=== PATIENT | female | born 1950 | race Caucasian/White ===

== ENCOUNTER 2019-09-19 12:04 | Inpatient (IN) | payer MEDICARE, MEDICAID, SELFPAY ==
[2019-09-19] VITALS (25 sets, daily range): BP systolic 128–169; BP diastolic 64–86; PULSE 78–98; RESP 13–28; TEMP 36.7–36.8; O2SAT 90–99; BMI 22.8
--- NOTE | 2019-09-19 12:13 | ED_ITS ---
Documented by User: RAGHU Cheatham 09/19/19 17:08 HPI - Back Pain/Injury General: Chief Complaint: Back Pain/Injury Stated Complaint: BACK PAIN Time Seen by Provider: 09/19/19 12:13 History of Present Illness: HPI Narrative: Patient presents today with complaints of low back pain on the right side to center. 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 Patient reports pains been bad since last week. Review of record noted that patient seen Dr. Miranda last week and he was given a increase in oxycodone 10 mg every 6 hours for 14 days number 20 tablets due to the exacerbation of her pain. Patient denies any injury or fall. Patient uses a wheelchair routinely. Patient does stand at times with the assistance of a walker and a elevation chair. Patient appears in moderate to severe pain. Patient appears well. Patient also has a history of cervical cancer with radiation treatment. 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 Osteoporosis, disuse Peripheral neuropathy Stenosis, spinal, lumbar Wheelchair bound Surgical History History of arthroplasty of left ankle Status post total left knee replacement Family History Other Diabetes Heart disease Social History (Updated 09/19/19 @ 19:56 by Mary Gonzalez MD) Smoking and tobacco status: never smoked Alcohol intake: never Lives independently: Yes Marital status: / Number of children: 5 Number of grandchildren: 7 Current occupational status: retired History of recent travel: No Physical Exam Const: COMMON NORMALS: no acute distress and patient oriented x3 GENERAL APPEARANCE: cooperative HENMT: COMMON NORMALS: normocephalic and Normal external nose present HEAD & SCALP: normal to inspection and normocephalic NOSE: Normal external nose present MOUTH: Normal oral and palatal mucosa present Eye: GENERAL EYE: appearance normal, both eyes and all related structures Neck/C-Spine: COMMON NORMALS: full ROM Lymph: LYMPHATIC: no lymphadenopathy noted Chest: COMMONS NORMALS: normal inspection of the chest Resp: COMMON NORMALS: normal respiratory effort EFFORT & INSPECTION: Yes able to speak in complete sentences Cardio: COMMON NORMALS: regular rate and regular rhythm RATE: regular rate RHYTHM: regular rhythm GI: COMMON NORMALS: non-tender : COMMON NORMALS: Yes no CVA tenderness BLADDER/KIDNEY EXAM: Yes no CVA tenderness Back/Pelvis: COMMON NORMALS: no CVA tenderness THORACIC SPINE/UPPER BACK: Yes normal to inspection LUMBAR SPINE/LOWER BACK: Yes lumbar spinal tenderness and Yes paraspinal muscle tenderness Lumbar paraspinal muscle tenderness: right Extremity: COMMON NORMALS: normal to inspection Neuro: COMMON NORMALS: patient oriented x3 and moves all extremities Psych: COMMON NORMALS: mental status grossly normal and cooperative Skin: COMMON NORMALS: no rashes or lesions noted GENERAL SKIN EXAM: no rashes or lesions noted Course ED course: 1306, patient reports minimal relief of pain. Patient continues to have significant difficulty with dealing with the discomfort of the back pain. Awaiting CT scan. Ordered 1 mg of hydromorphone for further pain relief. 1414, reviewed abnormalities of patient's labs with Dr. Tsai. He agreed with concerns for leukemia and recommended an LDH to be added to her lab. He plans at this time to seek admission for patient for further evaluation and treatment for abnormality, along with intractable pain. Patient reports some mild pain relief after dosing with 1 mg of hydromorphone. Patient continues to appear in moderate pain. wjw 1500, discussed with Dr. Tang patient, he agreed to see patient for further evaluation and treatment. He recommended we order CT scan of the abdomen and pelvis with contrast. He also requested manual differential of the CBC. wjw 1707, reviewed CT with Dr. Tsai, agreed to assume care of patient on my departure, plan at this time is to admit for pain control and further evaluation of acute leukemia. wjw Vital Signs: Vital signs: Vital Signs Temperature 97.8 F 09/24/19 12:06 Pulse Rate 82 09/24/19 12:06 Respiratory Rate 24 H 09/24/19 12:54 Blood Pressure 139/69 09/24/19 12:06 Pulse Oximetry 94 09/24/19 12:00 MDM - Back Pain/Injury Lab Data: Labs: Lab Results 09/19/19 09/19/19 09/19/19 Range/Units 13:04 13:04 13:04 WBC 52.6 H* (4.0-10.0) 10^3/ uL RBC 5.13 (4.1-5.3) 10^6/u L Hgb 14.8 (11.5-15.3) g/dL Hct 45.7 (37.0-47.0) % MCV 89.1 (81-99) fL MCH 28.8 (28.0-34.0) pg MCHC 32.4 (30.0-36.0) g/dL RDW 14.4 (12.1-15.1) % Plt Count 1272 H (130-400) 10^3/c mm MPV 9.8 (7.4-10.4) fL Lymph % (Auto) Not Reportable Davison % (Auto) Not Reportable Lymph # (Auto) Not Reportable Davison # (Auto) Not Reportable Nucleated RBC % (a uto) 0 % Total Counted 100 (0-100) Absolute Neutrophi ls 47.3 H (1.4-6.5) 10^3/c mm Segmented Neutroph ils 87 % Abs Segm Neuts (Ma n) 45.8 H (1.6-7.1) 10/cmm Band Neutrophils 3.0 % Abs Band Neuts (Ma n) 1.6 H (0.0-1.2) 10^3/c mm Lymphocytes (Manua l) 9 % Monocytes (Manual) 1.0 % Absolute Monocytes 0.5 (0.1-0.6) 10^3/c mm Nucleated RBCs # 0.0 /100WBC Platelet Estimate Increased H (Normal) Sodium 136 (136-145) mmol/L Potassium 4.4 (3.5-5.1) mmol/L Chloride 98 (98-107) mmol/L Carbon Dioxide 26 (22-29) mmol/L Anion Gap 16.4 (5-19) BUN 15 (8-23) mg/dL Creatinine 0.5 (0.5-0.9) mg/dL GFR Calculation 122.7 (90-130) mL/min Glucose 110 (65-115) mg/dL Calculated Osmolal ity 279 L (285-295) mOsm/k g Calcium 9.9 (8.5-10.5) mg/dL Total Bilirubin 0.4 (0.15-1.2) mg/dL AST 19 (0-32) U/L ALT 22 (0-33) U/L Alkaline Phosphata se 117 H (35-105) IU/L Lactate Dehydrogen ase 369 H (135-214) U/L C-Reactive Protein 12.9 H (0.0-4.9) mg/L Total Protein 7.2 (6.6-8.7) g/dL Albumin 4.4 (3.5-5.2) g/dL Globulin 2.8 (1.3-4.6) g/dL Urine Color (Yellow) Urine Appearance (CLEAR) Urine pH (5-7) Ur Specific Gravit y (1.005-1.030) Urine Protein (Negative) Urine Glucose (UA) (Normal) Urine Ketones (Negative) Urine Blood (Negative) Urine Nitrate (Negative) Urine Bilirubin (NEGATIVE) Urine Urobilinogen (Negative) mg/dL Ur Leukocyte Isaura ase (Negative) Urine RBC (0-2) /hpf Urine WBC (0-5) /hpf Ur Squamous Epith Cells (0-5) Amorphous Sediment Urine Bacteria (NONE) 09/19/19 Range/Units 14:25 WBC (4.0-10.0) 10^3/ uL RBC (4.1-5.3) 10^6/u L Hgb (11.5-15.3) g/dL Hct (37.0-47.0) % MCV (81-99) fL MCH (28.0-34.0) pg MCHC (30.0-36.0) g/dL RDW (12.1-15.1) % Plt Count (130-400) 10^3/c mm MPV (7.4-10.4) fL Lymph % (Auto) Davison % (Auto) Lymph # (Auto) Davison # (Auto) Nucleated RBC % (a uto) % Total Counted (0-100) Absolute Neutrophi ls (1.4-6.5) 10^3/c mm Segmented Neutroph ils % Abs Segm Neuts (Ma n) (1.6-7.1) 10/cmm Band Neutrophils % Abs Band Neuts (Ma n) (0.0-1.2) 10^3/c mm Lymphocytes (Manua l) % Monocytes (Manual) % Absolute Monocytes (0.1-0.6) 10^3/c mm Nucleated RBCs # /100WBC Platelet Estimate (Normal) Sodium (136-145) mmol/L Potassium (3.5-5.1) mmol/L Chloride (98-107) mmol/L Carbon Dioxide (22-29) mmol/L Anion Gap (5-19) BUN (8-23) mg/dL Creatinine (0.5-0.9) mg/dL GFR Calculation (90-130) mL/min Glucose (65-115) mg/dL Calculated Osmolal ity (285-295) mOsm/k g Calcium (8.5-10.5) mg/dL Total Bilirubin (0.15-1.2) mg/dL AST (0-32) U/L ALT (0-33) U/L Alkaline Phosphata se (35-105) IU/L Lactate Dehydrogen ase (135-214) U/L C-Reactive Protein (0.0-4.9) mg/L Total Protein (6.6-8.7) g/dL Albumin (3.5-5.2) g/dL Globulin (1.3-4.6) g/dL Urine Color Yellow (Yellow) Urine Appearance Cloudy (CLEAR) Urine pH 8 H (5-7) Ur Specific Gravit y 1.010 (1.005-1.030) Urine Protein Neg (Negative) Urine Glucose (UA) Norm (Normal) Urine Ketones Negative (Negative) Urine Blood 3+ H (Negative) Urine Nitrate Negative (Negative) Urine Bilirubin Neg (NEGATIVE) Urine Urobilinogen 1 H (Negative) mg/dL Ur Leukocyte Isaura ase 2+ H (Negative) Urine RBC 5-10 H (0-2) /hpf Urine WBC 5-10 H (0-5) /hpf Ur Squamous Epith Cells 0-4 H (0-5) Amorphous Sediment Not Reportable Urine Bacteria 4+ H (NONE) Discharge Plan Discharge Patient Disposition: Admitted As Inpatient Admit Provider: Mary Gonzalez Clinical Impression: Burst fracture of lumbar vertebra, Osteoporosis, disuse, HTN (hypertension), benign, Leukocytosis, UTI (urinary tract infection), Burst fracture of thoracic vertebra Condition: Stable Discharge Orders: Discharge Order (Routine); Ordered 09/24/19 Ordered By: En Hendricks Referrals: [facility] [Other] Dennis Miranda MD [Primary Care Provider] - 09/27/19 1:45 pm (ESBL E. coli UTI. Leukocytosis, thrombocytosis, concern for possible hematologic malignancy. Multiple spinal fractures. Severe osteoporosis. Severe peripheral neuropathy.) Michael Barajas MD [Physician] - 2 weeks (After AP and lateral thoracic and lumbar spine x-rays.) Dewayne Brown MD [Hospitalist] - 4-7 days (For further workup for marked leukocytosis and thrombocytosis. ) Discharge Diet: Usual diet and Cardiac Discharge Activity: Limit activity as instructed and As per PT/OT instructions Additional Instructions: IV antibiotics as instructed via PICC line. PICC line to be removed after course is complete. If you experience any worsening of pain, any difficulty with urination or defecation, any new/worsening numbness, or weakness in any extremities, any fevers, or any other abnormal symptoms, please seek medical attention without delay. Please follow up with Dr. Brown in office regarding very high white blood cell counts and platelet counts. Please make sure to follow-up with Dr. Barajas in office after thoracic and lumbar spine x-rays. Please discuss with him and Dr. Brown as well regarding need for MRI of your back. Please maintain strict fall precautions at home. Please continue to monitor blood pressures at home 3 times daily, record values to bring to your appointment. Discharge Date/Time: 09/19/19 20:38 Print Language: Bulgarian Coding Level of Care Code ED Juice Scaleman for Chg Fwd Exam Comprehensive Documented by User: Margaux Coello MD 09/19/19 19:15 HPI - Back Pain/Injury General: Chief Complaint: Back Pain/Injury Stated Complaint: BACK PAIN Time Seen by Provider: 09/19/19 12:13 [facility] ED PFSH: Medical History (Updated 09/25/19 @ 07:46 by Jose Tsai DO) Burst fracture of lumbar vertebra Cervical cancer s/p radiation treatment (>35 yrs ago) Chronic hepatitis C Compression fracture chronic thoracic spine GERD (gastroesophageal reflux disease) HTN (hypertension), benign Hyperlipidemia Incarcerated hiatal hernia 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 Osteoporosis, disuse Peripheral neuropathy Stenosis, spinal, lumbar Wheelchair bound Surgical History History of arthroplasty of left ankle Status post total left knee replacement Family History Other Diabetes Heart disease Social History (Updated 09/19/19 @ 19:56 by Mary Gonzalez MD) Smoking and tobacco status: never smoked Alcohol intake: never Lives independently: Yes Marital status: / Number of children: 5 Number of grandchildren: 7 Current occupational status: retired History of recent travel: No Course Vital Signs: Vital signs: Vital Signs Temperature 97.8 F 09/24/19 12:06 Pulse Rate 82 09/24/19 12:06 Respiratory Rate 24 H 09/24/19 12:54 Blood Pressure 139/69 09/24/19 12:06 Pulse Oximetry 94 09/24/19 12:00 MDM - Back Pain/Injury MDM Narrative: Medical decision making narrative: Mary presents here with low back pain does have a fracture. She has an L3 fracture could be due to her severe osteoporosis. Patient also has a highly elevated white count and platelet count and could have a new onset of leukemia. I spoke to hospitalist and will admit for further work-up along with pain control. I spoke to neurosurgeon Dr. Barajas who is consulted as well. Patient has been stable here while in the ER. Lab Data: Labs: Lab Results 09/19/19 09/19/19 09/19/19 Range/Units 13:04 13:04 13:04 WBC 52.6 H* (4.0-10.0) 10^3/ uL RBC 5.13 (4.1-5.3) 10^6/u L Hgb 14.8 (11.5-15.3) g/dL Hct 45.7 (37.0-47.0) % MCV 89.1 (81-99) fL MCH 28.8 (28.0-34.0) pg MCHC 32.4 (30.0-36.0) g/dL RDW 14.4 (12.1-15.1) % Plt Count 1272 H (130-400) 10^3/c mm MPV 9.8 (7.4-10.4) fL Lymph % (Auto) Not Reportable Davison % (Auto) Not Reportable Lymph # (Auto) Not Reportable Davison # (Auto) Not Reportable Nucleated RBC % (a uto) 0 % Total Counted 100 (0-100) Absolute Neutrophi ls 47.3 H (1.4-6.5) 10^3/c mm Segmented Neutroph ils 87 % Abs Segm Neuts (Ma n) 45.8 H (1.6-7.1) 10/cmm Band Neutrophils 3.0 % Abs Band Neuts (Ma n) 1.6 H (0.0-1.2) 10^3/c mm Lymphocytes (Manua l) 9 % Monocytes (Manual) 1.0 % Absolute Monocytes 0.5 (0.1-0.6) 10^3/c mm Nucleated RBCs # 0.0 /100WBC Platelet Estimate Increased H (Normal) Sodium 136 (136-145) mmol/L Potassium 4.4 (3.5-5.1) mmol/L Chloride 98 (98-107) mmol/L Carbon Dioxide 26 (22-29) mmol/L Anion Gap 16.4 (5-19) BUN 15 (8-23) mg/dL Creatinine 0.5 (0.5-0.9) mg/dL GFR Calculation 122.7 (90-130) mL/min Glucose 110 (65-115) mg/dL Calculated Osmolal ity 279 L (285-295) mOsm/k g Calcium 9.9 (8.5-10.5) mg/dL Total Bilirubin 0.4 (0.15-1.2) mg/dL AST 19 (0-32) U/L ALT 22 (0-33) U/L Alkaline Phosphata se 117 H (35-105) IU/L Lactate Dehydrogen ase 369 H (135-214) U/L C-Reactive Protein 12.9 H (0.0-4.9) mg/L Total Protein 7.2 (6.6-8.7) g/dL Albumin 4.4 (3.5-5.2) g/dL Globulin 2.8 (1.3-4.6) g/dL Urine Color (Yellow) Urine Appearance (CLEAR) Urine pH (5-7) Ur Specific Gravit y (1.005-1.030) Urine Protein (Negative) Urine Glucose (UA) (Normal) Urine Ketones (Negative) Urine Blood (Negative) Urine Nitrate (Negative) Urine Bilirubin (NEGATIVE) Urine Urobilinogen (Negative) mg/dL Ur Leukocyte Isaura ase (Negative) Urine RBC (0-2) /hpf Urine WBC (0-5) /hpf Ur Squamous Epith Cells (0-5) Amorphous Sediment Urine Bacteria (NONE) 09/19/19 Range/Units 14:25 WBC (4.0-10.0) 10^3/ uL RBC (4.1-5.3) 10^6/u L Hgb (11.5-15.3) g/dL Hct (37.0-47.0) % MCV (81-99) fL MCH (28.0-34.0) pg MCHC (30.0-36.0) g/dL RDW (12.1-15.1) % Plt Count (130-400) 10^3/c mm MPV (7.4-10.4) fL Lymph % (Auto) Davison % (Auto) Lymph # (Auto) Davison # (Auto) Nucleated RBC % (a uto) % Total Counted (0-100) Absolute Neutrophi ls (1.4-6.5) 10^3/c mm Segmented Neutroph ils % Abs Segm Neuts (Ma n) (1.6-7.1) 10/cmm Band Neutrophils % Abs Band Neuts (Ma n) (0.0-1.2) 10^3/c mm Lymphocytes (Manua l) % Monocytes (Manual) % Absolute Monocytes (0.1-0.6) 10^3/c mm Nucleated RBCs # /100WBC Platelet Estimate (Normal) Sodium (136-145) mmol/L Potassium (3.5-5.1) mmol/L Chloride (98-107) mmol/L Carbon Dioxide (22-29) mmol/L Anion Gap (5-19) BUN (8-23) mg/dL Creatinine (0.5-0.9) mg/dL GFR Calculation (90-130) mL/min Glucose (65-115) mg/dL Calculated Osmolal ity (285-295) mOsm/k g Calcium (8.5-10.5) mg/dL Total Bilirubin (0.15-1.2) mg/dL AST (0-32) U/L ALT (0-33) U/L Alkaline Phosphata se (35-105) IU/L Lactate Dehydrogen ase (135-214) U/L C-Reactive Protein (0.0-4.9) mg/L Total Protein (6.6-8.7) g/dL Albumin (3.5-5.2) g/dL Globulin (1.3-4.6) g/dL Urine Color Yellow (Yellow) Urine Appearance Cloudy (CLEAR) Urine pH 8 H (5-7) Ur Specific Gravit y 1.010 (1.005-1.030) Urine Protein Neg (Negative) Urine Glucose (UA) Norm (Normal) Urine Ketones Negative (Negative) Urine Blood 3+ H (Negative) Urine Nitrate Negative (Negative) Urine Bilirubin Neg (NEGATIVE) Urine Urobilinogen 1 H (Negative) mg/dL Ur Leukocyte Isaura ase 2+ H (Negative) Urine RBC 5-10 H (0-2) /hpf Urine WBC 5-10 H (0-5) /hpf Ur Squamous Epith Cells 0-4 H (0-5) Amorphous Sediment Not Reportable Urine Bacteria 4+ H (NONE) Discharge Plan Discharge Patient Disposition: Admitted As Inpatient Admit Provider: Mary Gonzalez Clinical Impression: Burst fracture of lumbar vertebra, Osteoporosis, disuse, HTN (hypertension), benign, Leukocytosis, UTI (urinary tract infection), Burst fracture of thoracic vertebra Condition: Stable Discharge Orders: Discharge Order (Routine); Ordered 09/24/19 Ordered By: En Hendricks Referrals: [facility] [Other] Dennis Miranda MD [Primary Care Provider] - 09/27/19 1:45 pm (ESBL E. coli UTI. Leukocytosis, thrombocytosis, concern for possible hematologic malignancy. Multiple spinal fractures. Severe osteoporosis. Severe peripheral neuropathy.) Michael Barajas MD [Physician] - 2 weeks (After AP and lateral thoracic and lumbar spine x-rays.) Dewayne Brown MD [Hospitalist] - 4-7 days (For further workup for marked leukocytosis and thrombocytosis. ) Discharge Diet: Usual diet and Cardiac Discharge Activity: Limit activity as instructed and As per PT/OT instructions Additional Instructions: IV antibiotics as instructed via PICC line. PICC line to be removed after course is complete. If you experience any worsening of pain, any difficulty with urination or defecation, any new/worsening numbness, or weakness in any extremities, any fevers, or any other abnormal symptoms, please seek medical attention without delay. Please follow up with Dr. Brown in office regarding very high white blood cell counts and platelet counts. Please make sure to follow-up with Dr. Barajas in office after thoracic and lumbar spine x-rays. Please discuss with him and Dr. Brown as well regarding need for MRI of your back. Please maintain strict fall precautions at home. Please continue to monitor blood pressures at home 3 times daily, record values to bring to your appointment. Discharge Date/Time: 09/19/19 20:38 Print Language: Bulgarian Coding Level of Care Code ED Juice Scaleman for Chg Fwd Exam Comprehensive Documented by User: Jose Tsai DO 09/25/19 07:48 HPI - Back Pain/Injury General: Chief Complaint: Back Pain/Injury Stated Complaint: BACK PAIN Time Seen by Provider: 09/19/19 12:13 [facility] ED PFS: Medical History (Updated 09/25/19 @ 07:46 by Jose Tsai DO) Burst fracture of lumbar vertebra Cervical cancer s/p radiation treatment (>35 yrs ago) Chronic hepatitis C Compression fracture chronic thoracic spine GERD (gastroesophageal reflux disease) HTN (hypertension), benign Hyperlipidemia Incarcerated hiatal hernia 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 Osteoporosis, disuse Peripheral neuropathy Stenosis, spinal, lumbar Wheelchair bound Surgical History History of arthroplasty of left ankle Status post total left knee replacement Family History Other Diabetes Heart disease Social History (Updated 09/19/19 @ 19:56 by Mary Gonzalez MD) Smoking and tobacco status: never smoked Alcohol intake: never Lives independently: Yes Marital status: / Number of children: 5 Number of grandchildren: 7 Current occupational status: retired History of recent travel: No Course Vital Signs: Vital signs: Vital Signs Temperature 97.8 F 09/24/19 12:06 Pulse Rate 82 09/24/19 12:06 Respiratory Rate 24 H 09/24/19 12:54 Blood Pressure 139/69 09/24/19 12:06 Pulse Oximetry 94 09/24/19 12:00 MDM - Back Pain/Injury MDM Narrative: Medical decision making narrative: Review chart for the patient. We will go ahead and admit with Dr. Gonzalez. We have consulted Dr. Barajas he will see the patient later today. Patient is markedly elevated white count with a normal hemoglobin and also has an elevated LDH. She has severe pain in her back with an L3 compression fracture that I suspect may be new additionally has a cystitis she has been treated with initial dose of ceftriaxone. Discussed Dr. Gonzalez she will accept patient on her floor due to her multiple problems and need for pain control she will be admitted to the ICU. Lab Data: Labs: Lab Results 09/19/19 09/19/19 09/19/19 Range/Units 13:04 13:04 13:04 WBC 52.6 H* (4.0-10.0) 10^3/ uL RBC 5.13 (4.1-5.3) 10^6/u L Hgb 14.8 (11.5-15.3) g/dL Hct 45.7 (37.0-47.0) % MCV 89.1 (81-99) fL MCH 28.8 (28.0-34.0) pg MCHC 32.4 (30.0-36.0) g/dL RDW 14.4 (12.1-15.1) % Plt Count 1272 H (130-400) 10^3/c mm MPV 9.8 (7.4-10.4) fL Lymph % (Auto) Not Reportable Davison % (Auto) Not Reportable Lymph # (Auto) Not Reportable Davison # (Auto) Not Reportable Nucleated RBC % (a uto) 0 % Total Counted 100 (0-100) Absolute Neutrophi ls 47.3 H (1.4-6.5) 10^3/c mm Segmented Neutroph ils 87 % Abs Segm Neuts (Ma n) 45.8 H (1.6-7.1) 10/cmm Band Neutrophils 3.0 % Abs Band Neuts (Ma n) 1.6 H (0.0-1.2) 10^3/c mm Lymphocytes (Manua l) 9 % Monocytes (Manual) 1.0 % Absolute Monocytes 0.5 (0.1-0.6) 10^3/c mm Nucleated RBCs # 0.0 /100WBC Platelet Estimate Increased H (Normal) Sodium 136 (136-145) mmol/L Potassium 4.4 (3.5-5.1) mmol/L Chloride 98 (98-107) mmol/L Carbon Dioxide 26 (22-29) mmol/L Anion Gap 16.4 (5-19) BUN 15 (8-23) mg/dL Creatinine 0.5 (0.5-0.9) mg/dL GFR Calculation 122.7 (90-130) mL/min Glucose 110 (65-115) mg/dL Calculated Osmolal ity 279 L (285-295) mOsm/k g Calcium 9.9 (8.5-10.5) mg/dL Total Bilirubin 0.4 (0.15-1.2) mg/dL AST 19 (0-32) U/L ALT 22 (0-33) U/L Alkaline Phosphata se 117 H (35-105) IU/L Lactate Dehydrogen ase 369 H (135-214) U/L C-Reactive Protein 12.9 H (0.0-4.9) mg/L Total Protein 7.2 (6.6-8.7) g/dL Albumin 4.4 (3.5-5.2) g/dL Globulin 2.8 (1.3-4.6) g/dL Urine Color (Yellow) Urine Appearance (CLEAR) Urine pH (5-7) Ur Specific Gravit y (1.005-1.030) Urine Protein (Negative) Urine Glucose (UA) (Normal) Urine Ketones (Negative) Urine Blood (Negative) Urine Nitrate (Negative) Urine Bilirubin (NEGATIVE) Urine Urobilinogen (Negative) mg/dL Ur Leukocyte Isaura ase (Negative) Urine RBC (0-2) /hpf Urine WBC (0-5) /hpf Ur Squamous Epith Cells (0-5) Amorphous Sediment Urine Bacteria (NONE) 09/19/19 Range/Units 14:25 WBC (4.0-10.0) 10^3/ uL RBC (4.1-5.3) 10^6/u L Hgb (11.5-15.3) g/dL Hct (37.0-47.0) % MCV (81-99) fL MCH (28.0-34.0) pg MCHC (30.0-36.0) g/dL RDW (12.1-15.1) % Plt Count (130-400) 10^3/c mm MPV (7.4-10.4) fL Lymph % (Auto) Davison % (Auto) Lymph # (Auto) Davison # (Auto) Nucleated RBC % (a uto) % Total Counted (0-100) Absolute Neutrophi ls (1.4-6.5) 10^3/c mm Segmented Neutroph ils % Abs Segm Neuts (Ma n) (1.6-7.1) 10/cmm Band Neutrophils % Abs Band Neuts (Ma n) (0.0-1.2) 10^3/c mm Lymphocytes (Manua l) % Monocytes (Manual) % Absolute Monocytes (0.1-0.6) 10^3/c mm Nucleated RBCs # /100WBC Platelet Estimate (Normal) Sodium (136-145) mmol/L Potassium (3.5-5.1) mmol/L Chloride (98-107) mmol/L Carbon Dioxide (22-29) mmol/L Anion Gap (5-19) BUN (8-23) mg/dL Creatinine (0.5-0.9) mg/dL GFR Calculation (90-130) mL/min Glucose (65-115) mg/dL Calculated Osmolal ity (285-295) mOsm/k g Calcium (8.5-10.5) mg/dL Total Bilirubin (0.15-1.2) mg/dL AST (0-32) U/L ALT (0-33) U/L Alkaline Phosphata se (35-105) IU/L Lactate Dehydrogen ase (135-214) U/L C-Reactive Protein (0.0-4.9) mg/L Total Protein (6.6-8.7) g/dL Albumin (3.5-5.2) g/dL Globulin (1.3-4.6) g/dL Urine Color Yellow (Yellow) Urine Appearance Cloudy (CLEAR) Urine pH 8 H (5-7) Ur Specific Gravit y 1.010 (1.005-1.030) Urine Protein Neg (Negative) Urine Glucose (UA) Norm (Normal) Urine Ketones Negative (Negative) Urine Blood 3+ H (Negative) Urine Nitrate Negative (Negative) Urine Bilirubin Neg (NEGATIVE) Urine Urobilinogen 1 H (Negative) mg/dL Ur Leukocyte Isaura ase 2+ H (Negative) Urine RBC 5-10 H (0-2) /hpf Urine WBC 5-10 H (0-5) /hpf Ur Squamous Epith Cells 0-4 H (0-5) Amorphous Sediment Not Reportable Urine Bacteria 4+ H (NONE) Discharge Plan Discharge Patient Disposition: Admitted As Inpatient Admit Provider: Mary Gonzalez Clinical Impression: Burst fracture of lumbar vertebra, Osteoporosis, disuse, HTN (hypertension), benign, Leukocytosis, UTI (urinary tract infection), Burst fracture of thoracic vertebra Condition: Stable Discharge Orders: Discharge Order (Routine); Ordered 09/24/19 Ordered By: En Hendricks Referrals: [facility] [Other] Dennis Miranda MD [Primary Care Provider] - 09/27/19 1:45 pm (ESBL E. coli UTI. Leukocytosis, thrombocytosis, concern for possible hematologic malignancy. Multiple spinal fractures. Severe osteoporosis. Severe peripheral neuropathy.) Michael Barajas MD [Physician] - 2 weeks (After AP and lateral thoracic and lumbar spine x-rays.) Dewayne Brown MD [Hospitalist] - 4-7 days (For further workup for marked leukocytosis and thrombocytosis. ) Discharge Diet: Usual diet and Cardiac Discharge Activity: Limit activity as instructed and As per PT/OT instructions Additional Instructions: IV antibiotics as instructed via PICC line. PICC line to be removed after course is complete. If you experience any worsening of pain, any difficulty with urination or defecation, any new/worsening numbness, or weakness in any extremities, any fevers, or any other abnormal symptoms, please seek medical attention without delay. Please follow up with Dr. Brown in office regarding very high white blood cell counts and platelet counts. Please make sure to follow-up with Dr. Barajas in office after thoracic and lumbar spine x-rays. Please discuss with him and Dr. Brown as well regarding need for MRI of your back. Please maintain strict fall precautions at home. Please continue to monitor blood pressures at home 3 times daily, record values to bring to your appointment. Discharge Date/Time: 09/19/19 20:38 Print Language: Bulgarian Coding Level of Care Code ED Juice Scaleman for Chg Fwd Exam Comprehensive
--- NOTE | 2019-09-19 12:23 | CT_ITS ---
WS: [id number] CT LUMBAR SPINE, noncontrast. HISTORY: severe pain TECHNIQUE: Contiguous 2.5 mm axial imaging are performed. Sagittal and coronal reformats are submitte d and reviewed. All CT scans at [facility] use at least one of these dose optimization te chniques: automated exposure control; mA and/or kV adjustment per patient size (includes targeted exa ms where dose is matched to clinical indication); or iterative reconstruction. IV contrast: None DLP: 2344.33 mGy.cm COMPARISON: None available. Severe osteopenia. T12: Acute burst fracture of approximately 20% with very slight retropulsion of posterior superior en dplate. Retropulsion by 4.4 mm with mild contact on the ventral thecal sac. L3: Burst fracture of 50% is age indeterminant. No fracture line is identified. There is retropulsion of posterior superior vertebral body by 5.7 mm. L1-2: Normal. L2-3: Retropulsion of the posterior superior endplate of L3 causing significant narrowing of the thec al sac. Slightly greater retropulsion to the LEFT of midline. Moderate central and bilateral subartic ular recess stenosis. L3-4: Mild annular disc bulging with facet and ligamentum flavum hypertrophy. Moderate to severe cent ral stenosis, foraminal and subarticular recess stenosis. L4-5: Mild annular disc bulging with facet and ligamentum flavum hypertrophy. There is a central disc protrusion which extrudes below the disc space. Moderate to severe central and bilateral subarticula r recess stenosis. Mild LEFT foraminal stenosis. L5-S1: Broad-based disc bulging centrally. No significant stenosis. There is mild disc contact on the RIGHT S1 nerve root. Bilateral sclerotic and lytic changes in the iliac portions of the SI joints. Appears postinflammator y in etiology. CT/CT lumbar spine wo con* [id number] IMPRESSION: 1. Acute mild burst fracture T12 with 4.4 mm retropulsion and mild contact on the ventral thecal sac. 2. Remote appearing 50% burst fracture of L3 resulting in moderate central and bilateral subarticular recess stenosis. 3. Moderate to severe central, foraminal subarticular recess stenosis at L3-4. 4. Moderate to severe central, bilateral subarticular recess stenosis and mild LEFT foraminal stenosis at L4-5.
[2019-09-19] MEDS: morphine 4 mg/mL SDV 1 mL IVP ×2 (12:35→23:02)
[2019-09-19] MEDS: ondansetron 2 mg/ML SDV 2 mL 4 MG IVP (12:56)
[2019-09-19 13:13] LABS: Hematocrit 45.7 % (37.0-47.0); Hemoglobin 14.8 g/dL (11.5-15.3); Mean Corpuscular HGB Conc 32.4 g/dL (30.0-36.0); Mean Corpuscular Hemoglobin 28.8 pg (28.0-34.0); Mean Corpuscular Volume 89.1 fL (81-99); Mean Platelet Volume 9.8 fL (7.4-10.4); Nucleated Red Blood Cells % 0 %; Platelet Count 1272 10^3/cmm (130-400); Red Blood Count 5.13 10^6/uL (4.1-5.3); Red Cell Distribution Width 14.4 % (12.1-15.1)
[2019-09-19] MEDS: HYDROmorphone 1 mg/mL INJ 1 mL IVP ×4 (13:15→19:05)
[2019-09-19 13:27] LABS: Alanine Aminotransferase 22 U/L (0-33); Albumin Level 4.4 g/dL (3.5-5.2); Alkaline Phosphatase 117 IU/L (35-105); Anion Gap 16.4 (5-19); Aspartate Amino Transferase 19 U/L (0-32); Blood Urea Nitrogen 15 mg/dL (8-23); Calcium 9.9 mg/dL (8.5-10.5); Carbon Dioxide 26 mmol/L (22-29); Chloride 98 mmol/L (98-107); Creatinine Clr Calc Pharmacy 69.6528; Globulin 2.8 g/dL (1.3-4.6); Glomerular Filtration Rate 122.7 mL/min (90-130); Glucose 110 mg/dL (65-115); Osmolality Calculated 279 mOsm/kg (285-295); Potassium 4.4 mmol/L (3.5-5.1); Sodium 136 mmol/L (136-145); Total Bilirubin 0.4 mg/dL (0.15-1.2); Total Protein 7.2 g/dL (6.6-8.7)
[2019-09-19] MEDS: ketorolac 30 mg/mL INJ 15 MG IVP (13:38)
[2019-09-19 13:58] LABS: White Blood Count 52.6 10^3/uL (4.0-10.0)
[2019-09-19 13:59] LABS: Slide Review Slide Review Perform
[2019-09-19 14:01] LABS: Absolute Segmented Neutrophil 45.8 10/cmm (1.6-7.1); Band Neutrophils Absolute 1.6 10^3/cmm (0.0-1.2); Lymphocytes 9 %; Monocytes Absolute 0.5 10^3/cmm (0.1-0.6); Segmented Neutrophils 87 %; Total Cells Counted 100 (0-100)
[2019-09-19 14:02] LABS: Absolute Neutrophil 47.3 10^3/cmm (1.4-6.5); Platelet Estimate Increased (Normal)
[2019-09-19 14:45] LABS: C Reactive Protein 12.9 mg/L (0.0-4.9)
--- NOTE | 2019-09-19 15:00 | CTR_ITS ---
PROCEDURE INFORMATION: Exam: CT Chest With Contrast Exam date and time: 09/19/2019 3:07 PM Age: 69 years old Clinical indication: Other: Luekocytosis; Other: Leukocystosis; Patient HX: Uterine; Additional info: Severe leukocytosis TECHNIQUE: Imaging protocol: Computed tomography of the chest with intravenous contrast. Radiation optimization: All CT scans at this facility use at least one of these dose optimization techniques: automated exposure control; mA and/or kV adjustment per patient size (includes targeted exams where dose is matched to clinical indication); or iterative reconstruction. Contrast material: OMNI 300; Contrast volume: 95 ml; Contrast route: INTRAVENOUS (IV); COMPARISON: US gall bladder [id number] 06/27/2015 7:49 AM RADIATION DOSE METRICS: Total DLP (mGy-cm): 1073.8 FINDINGS: Lungs: Series 4, image 26, four mm right upper lobe nodule. On the same image there is a 2 mm right upper lobe nodule. No lung consolidation. There is linear atelectasis or fibrosis in the left lower lobe. Pleural space: Unremarkable. No pneumothorax. No pleural effusion. Heart: Unremarkable. No cardiomegaly. No pericardial effusion. Mediastinal space: There is a moderate to large hiatal hernia. Aorta: Unremarkable. No aortic aneurysm. Lymph nodes: Unremarkable. No enlarged lymph nodes. Bones/joints: There are compression fractures of T7, T8, T9 and T12. There is no evidence to indicate acute fracture. Age cannot be definitively determined. Soft tissues: Unremarkable. IMPRESSION: 1. No acute findings. 2. Small right upper lobe nodules the larger measuring 4 mm. Twelve month follow-up recommended only if patient is considered high risk as per Fleischner protocol. 3. Multiple thoracic compression fractures are probably chronic. Correlate for any recent symptoms. PROCEDURE INFORMATION: Exam: CT Abdomen And Pelvis With Contrast Exam date and time: 09/19/2019 3:07 PM Age: 69 years old Clinical indication: Other: Luekocytosis; Other: Leukocystosis; Patient HX: Uterine; Additional info: Severe leukocytosis TECHNIQUE: Imaging protocol: Computed tomography of the abdomen and pelvis with intravenous contrast. Radiation optimization: All CT scans at this facility use at least one of these dose optimization techniques: automated exposure control; mA and/or kV adjustment per patient size (includes targeted exams where dose is matched to clinical indication); or iterative reconstruction. Contrast material: OMNI 300; Contrast volume: 95 ml; Contrast route: INTRAVENOUS (IV); COMPARISON: US gall bladder [id number] 06/27/2015 7:49 AM RADIATION DOSE METRICS: Total DLP (mGy-cm): 1073.8 FINDINGS: Liver: There are several lucencies in the liver measuring up to 6 mm. These appear to be cysts but cannot be further characterized. The liver is otherwise normal. Gallbladder and bile ducts: The gallbladder is moderately distended. The common bile duct is mildly dilated, 9 mm. No calculus identified. No obstructive lesion identified. Pancreas: The pancreas is normal. Spleen: There is a calcified splenic granuloma. The spleen is otherwise normal. Adrenals: The adrenals are normal. Kidneys and ureters: The kidneys are normal.No hydronephrosis. Stomach and bowel: There is moderate fecal stasis in the proximal colon. No wall thickening. No bowel obstruction. Appendix: No evidence of appendicitis. Intraperitoneal space: There is no free fluid or fluid collection. No free air. Vasculature: Unremarkable. No abdominal aortic aneurysm. Lymph nodes: Unremarkable. No enlarged lymph nodes. Bladder: The bladder is normal with no evidence of calculi. Reproductive: Unremarkable as visualized. Bones/joints: There are old pubic fractures. There is a compression fracture of L3 with mild retropulsion. This results in 50% decrease in anterior to posterior diameter of the spinal canal at this level. There is no evidence to indicate acute fracture. This is probably chronic, however age cannot be definitively determined. Soft tissues: Unremarkable. CT/CT chest abd pel w con* IMPRESSION: 1. Moderately distended gallbladder and mild dilation of the common bile duct. No gallstones identified. 2. Compression fracture of L3 with retropulsion. Age cannot be definitively determined, there is no evidence to indicate acute fracture. This should be correlated for any symptoms. There also old pubic fractures. Radiation Dose CTDIVOL = (mGy): DLP = 1073.8~1073.8 (mGy-cm)
[2019-09-19 15:02] LABS: Lactate Dehydrogenase 369 U/L (135-214)
[2019-09-19 15:09] LABS: Add Urine Microscopic? YES; Bilirubin Urine Neg (NEGATIVE); Blood Urine 3+ (Negative); Glucose Urine UA Norm (Normal); Ketones Urine Negative (Negative); Leukocyte Esterase Urine 2+ (Negative); Nitrate Urine Negative (Negative); Protein Urine Neg (Negative); Urine Appearance Cloudy (CLEAR); Urine Color Yellow (Yellow); Urobilinogen Urine 1 mg/dL (Negative); pH Urine 8 (5-7)
[2019-09-19 15:10] LABS: Bacteria Urine 4+; Squamous Epithelial Cell Urine 0-4 (0-5)
[2019-09-19 15:11] LABS: Add Urine Culture? Yes
[2019-09-19] MEDS: LORazepam 1 mg Tablet 0.5 MG PO (15:21)
[2019-09-19] MEDS: iohexol 300 mg/mL 100 mL Btl IV (15:54)
[2019-09-19] MEDS: LORazepam 0.5 mg Tablet PO (17:32)
[2019-09-19] MEDS: cefTRIAXone 1,000 MG in sodium chloride 0.9% (plus) 50 ML 100 MG IV (18:15)
--- NOTE | 2019-09-19 19:48 | P.HP_ITS ---
Providers/Chief Complaint Admitting Physician: Mary Gonzalez MD Primary Care Provider: Dennis Miranda MD Chief Complaint: BACK PAIN History of Present Illness Mary Cristobal is a 69 year old female with PMHx of Osteoporosis, HTN, Chronic back pain, GERD, Hyperlipidemia, presents from home accompanied by her daughter secondary to worsening low back pain for approximately 1 week. She is wheelchair-bound at baseline secondary to severity of osteoporosis as well as what she sounds like peripheral neuropathy. She has a remote history of cervical cancer treated with radiation therapy approximately 35 years ago following which she developed peripheral neuropathy and progressive gait instability to the point where she is now wheelchair-bound. She lives independently and her daughter who is a nurse lives next door and checks on her frequently. Patient had been on opiates for chronic low back pain but over the past week has had to increase her use of this and was recently started on tizanidine following a visit to her primary care provider. At baseline she is intermittently incontinent of both bowel and bladder but she states that when her pain began to worsen she had a 4 to 5-day period of urinary retention and has not had a bowel movement for approximately 1 week. She has significant paresthesia of her bilateral lower extremities and evident foot drop. She is a ugalde of history of thoracic compression fractures which are noted on imaging today. She is prone to UTIs chronically and is on Keflex 500 mg daily. She denies any fever/chills, has had some intermittent blood in her urine and stool though none recently. Has had a mild cough with some clear sputum production though denies any shortness of breath. She is not oxygen dependent at baseline. She has not had any syncope and denies any seizure-like activity. No noted changes in mental status. Work-up in the ER today indicates significant leukocytosis with a white count greater than 50,000, normal hemoglobin at 14.8, platelet count greater than 1270, normal chemistry, slight elevated CRP at 12.9, normal LFTs with an ALP of 117, LDH of 369, urinalysis indicative of infection. She has had imaging that consists of a CT scan of the chest, abdomen and pelvis as well as L-spine showing chronic multiple thoracic compression fractures with noted L3 compression fracture of indeterminate age and T12 fracture as well in background of severe osteopenia. She is visibly uncomfortable even after having received a total of 4 mg IV morphine, 2 mg IV Dilaudid, 50 mg of Toradol and 1 mg of Ativan. Patient has also received a dose of ceftriaxone for UTI. Aquino catheter placement was attempted in the ER unsuccessfully likely due to severity of vaginal atrophy and lichen sclerosus. She is hemodynamically stable and on room air. Daughter is at bedside during my assessment in the ER. Due to pat damion's high pain requirement, question of malignancy, overall frailty she will be admitted to ICU for further management including pain control. ER physician has contacted Dr. Barajas who will see the patient in the morning. Ideally I would like to have an MRI done but patient is too uncomfortable to maintain supine position long enough to get this done. Review of Systems Const: Reports: change in appetite (decreased appetite) and fatigue; Denies: fever(s) or chills Eyes: Denies: change in vision ENMT: Reports: dry mouth Card: Denies: chest pain, swelling of feet/ankles or lightheadedness Resp: Reports: productive cough (green sputum); Denies: dyspnea GI: Denies: abdominal pain, nausea, vomiting, hematemesis or hematochezia : Reports: urinary frequency; Denies: difficulty voiding or dysuria Musc: Denies: back pain Skin/Breast: Denies: rash Neuro: Reports: weakness in extremities; Denies: numbness in extremities Psych: Denies: anxiety Medications/Allergies Home Medications Medication Instructions Recorded Confirmed Last Taken Type aspirin 81 mg tablet,delayed 81 mg PO DAILY 03/26/19 09/19/19 09/18/19 History release nitroglycerin 0.4 mg sublingual 0.4 mg SUBLINGUAL Q5M PRN 03/26/19 09/19/19 Unknown History tablet omeprazole 20 mg capsule,delayed 20 mg PO DAILY cap 03/26/19 09/19/19 09/18/19 History release simvastatin 40 mg tablet 40 mg PO DAILY 03/26/19 09/19/19 09/18/19 History amlodipine 10 mg tablet 10 mg PO DAILY #90 tab 04/20/19 09/19/19 09/18/19 Rx lisinopril 40 mg tablet 40 mg PO DAILY #30 tab 07/30/19 09/19/19 09/19/19 Rx oxycodone 15 mg tablet 15 mg PO TID PRN 30 Days #90 tab 08/28/19 09/19/19 09/19/19 06:00 Rx tizanidine 4 mg capsule 4 - 8 mg PO BID PRN #60 cap 09/11/19 09/19/19 09/19/19 Rx 8 mg Imodium A-D See Rx Instructions .ROUTE .COMPLEX 09/19/19 09/19/19 Unknown History Vitamin D2 1,250 mcg PO Q7D 09/19/19 09/19/19 Unknown History cephalexin [Keflex] 500 mg PO DAILY 09/19/19 09/19/19 09/18/19 History naproxen sodium [Aleve] See Rx Instructions .ROUTE .COMPLEX 09/19/19 09/19/19 Unknown History oxcarbazepine 600 mg PO BEDTIME 09/19/19 09/19/19 09/18/19 History [id number] See Rx Instructions .ROUTE .COMPLEX 09/19/19 09/19/19 Unknown History [Visine Totality] Allergies Allergy/AdvReac Type Severity Reaction Status Date / Time meperidine [From Demerol] Allergy Unknown Verified 09/11/19 11:25 morphine tab Allergy Unknown Uncoded 09/19/19 15:24 PFSH Acute PFSH: Medical History Cervical cancer s/p radiation treatment (>35 yrs ago) Chronic hepatitis C GERD (gastroesophageal reflux disease) HTN (hypertension), benign Hyperlipidemia Incarcerated hiatal hernia 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 Osteoporosis, disuse Peripheral neuropathy Wheelchair bound Surgical History History of arthroplasty of left ankle Status post total left knee replacement Family History Other Diabetes Heart disease Social History (Updated 09/19/19 @ 19:56 by Mary Gonzalez MD) Smoking and tobacco status: never smoked Alcohol intake: never Substance/Drug Use: never Lives independently: Yes Marital status: / Number of children: 5 Number of grandchildren: 7 Current occupational status: retired History of recent travel: No Vitals/I&O/Wt Last Vital Signs Temp 98.1 F 09/19/19 12:13 Pulse 86 09/19/19 15:29 Resp 17 09/19/19 19:05 BP 156/75 09/19/19 15:29 Pulse Ox 99 09/19/19 19:05 Weight last 48 hrs Weight 68.039 kg Physical Exam Const: COMMON NORMALS: no acute distress and patient oriented x3 GENERAL APPEARANCE: cooperative; not comfortable (due to back pain) ORIENTATION/CONSCIOUSNESS: Yes awake HENMT: COMMON NORMALS: normocephalic, atraumatic, hearing grossly normal bilaterally and moist oral mucous membranes HEAD & SCALP: normocephalic and atraumatic Eye: COMMON NORMALS: Equal, round and reactive pupils present, EOMs intact bilaterally and conjunctivae normal CONJUNCTIVA: Yes conjunctivae normal PUPIL: Yes Equal, round and reactive pupils present Neck/C-Spine: COMMON NORMALS: full ROM GENERAL: Yes normal visual inspection and Yes trachea midline Resp: COMMON NORMALS: normal respiratory effort, No retractions, No use of accessory muscles and clear to auscultation bilaterally EFFORT & INSPECTION: Yes able to speak in complete sentences, Yes symmetric chest movement and No tachypneic AUSCULTATION: clear to auscultation bilaterally Cardio: COMMON NORMALS: regular rate, regular rhythm, S1 normal heart sound present, S2 normal heart sound present and No murmurs present (Cardio) RATE: regular rate RHYTHM: regular rhythm HEART SOUNDS: S1 normal heart sound present and S2 normal heart sound present GI: COMMON NORMALS: Normal to inspection, nondistended, normoactive bowel sounds present, Soft to palpation and non-tender PALPATION: Yes Soft to palpation : SPECULUM EXAM - VAGINA: Yes vagina atrophic Extremity: COMMON NORMALS: normal to inspection, full ROM and no clubbing, cyanosis or edema; negative for no pedal edema Neuro: COMMON NORMALS: patient oriented x3, moves all extremities, no focal motor deficits, no sensory deficits noted and gait normal Psych: COMMON NORMALS: mental status grossly normal, Normal thought process present, cooperative, normal affect and speech normal SPEECH: Yes normal speech THOUGHT PROCESS: Normal thought process present Skin: COMMON NORMALS: no rashes or lesions noted, no jaundice, no petechiae and no mottling GENERAL SKIN EXAM: no rashes or lesions noted Data : 09/19/19 13:04 09/19/19 13:04 A&P Assessment and plan (1) Compression fracture: -Has known history of chronic thoracic spine compression fracture secondary to severe osteoporosis -Over the past week has had increased pain, increased analgesic requirement -Imaging today including CT of the L-spine shows compression fractures of T7, T8, T9, T12 which appear to be chronic as well as acute burst fracture of approximately 20% with slight retropulsion of posterior superior endplate involving T12, burst fracture of 50% involving L3 that is age indeterminant with noted retropulsion as well -Has had issues chronically with incontinence both fecal and bladder but at the onset of increased pain had noted urinary retention and has not had a bowel movement for 1 week. This in conjunction with compression fracture is concerning for possible neurological deficit. Patient is currently unable to maintain supine position to get MRI imaging -Anticipate high pain requirement -Due to concern for possible neurological involvement will start on steroids -Very difficult to place Aquino catheter due to noted significant vaginal atrophy and lichen sclerosus -bowel regimen -strict fall precautions -Neurosurgery consult requested; per ED physician, Dr. Barajas will see patient in AM -PT/OT evaluations -muscle relaxants, lidocaine patch Status: Acute (2) Leukocytosis: -previously normal WBC; part of leukocytosis is likely due to infection (UTI) but much more than would be expected simply from infection -this with noted significant thrombocytosis is concerning for possible malignancy. Patient has a prior albeit remote hx of cervical cancer treated with radiation therapy about 35 yrs ago -No noted lymphadenopathy on CT scan of the chest, abdomen, pelvis; there is mention of small RUL nodules, cystic-appearing lesions in the liver -may need to discuss with Heme/Onc about possible bone marrow biopsy -order peripheral smear -trend WBC Status: Acute Qualifiers: Leukocytosis type: unspecified Qualified Code(s): D72.829 - Elevated white blood cell count, unspecified (3) Thrombocytosis: -trend platelet count -as noted above Status: Acute (4) Peripheral neuropathy: -per patient, developed following radiation therapy given for cervical cancer treatment -has progressed to the point where she has become wheelchair bound; part of her inability to ambulate is due to severe osteoporosis Status: Chronic Qualifiers: 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 I would broaden this to Zosyn secondary to chronicity of infection, development of UTI despite cephalosporin therapy and suspicion for malignancy and associated immunocompromise Status: Acute Qualifiers: Urinary tract infection type: acute cystitis Hematuria presence: without hematuria Qualified Code(s): N30.00 - Acute cystitis without hematuria (6) HTN (hypertension), benign: -monitor vital signs -resume oral antihypertensives Status: Chronic (7) Hyperlipidemia: -resume statin Status: Chronic Qualifiers: Hyperlipidemia type: unspecified Qualified Code(s): E78.5 - Hyperlipidemia, unspecified (8) Osteoporosis, disuse: -per history, is quite severe -per patient, failed treatment though sounds like she was treated with bisphosphonates x 2 years with minimal improvement, further details unclear -noted thoracic compression fractures, pubic bone fractures and now L-spine compression fractures -WC bound at baseline -resume high dose vitamin D Status: Chronic (9) GERD (gastroesophageal reflux disease): -PPI, particularly with steroid use Status: Chronic Qualifiers: Esophagitis presence: esophagitis presence not specified Qualified Code(s): K21.9 - Gastro-esophageal reflux disease without esophagitis Additional A&P Information -regular diet as tolerated -GI ppx with PPI -DVT ppx with Lovenox -Dispo: pending clinical improvement, was living independently with daughter Marichuy (nurse) next door -Code status: FULL code -ICU admission secondary to high pain requirement, low threshold for decompensation Attestations Medical Necessity Statement*: Mary Cristobal's hospital stay will require greater than 2 midnights for management of compression fractures with noted increased acute low back pain requiring aggressive pain control, treatment of UTI and work-up for noted leukocytosis and thrombocytosis. Time Spent in Patient Care: Greater than 35 minutes (>than 50% of time spent in counselling and/or direct pt care on unit) . 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
--- NOTE | 2019-09-19 21:00 | PC.NURSE ---
Admit Note Arrived from ER via [facility] at this time. Pt alert and oriented X 4 on arrival to unit. Breathing even and non-labored at this time on room air. Lungs clear throughout, diminished to bases. SR with rate 90's. Pt reports back pain rates 3/10 at this time. Worsens with any movement. Medial sacrum has non-open previous pressure injury. Medial sacrum has pink/white scar tissue with skin intact. Pt has severe weakness to BLE with foot drop, pt unable to move legs without assistance. Reports she is wheelchair bound at home. Her normal level of independence is transferring self from wheelchair to chair/toilet. Reports able to dress self independently.
[2019-09-19] MEDS: dexamethasone 4 mg/mL INJ IVP (21:35)
[2019-09-19] MEDS: enoxaparin 40 mg/0.4 mL Syringe SUBCUT (21:36)
[2019-09-19] MEDS: piperacillin-tazobactam 3.375 GM in sodium chloride 0.9% (plus) 50 ML IV (21:37)
[2019-09-19] MEDS: lidocaine 5% Patch 1 PATCH TOPICAL (21:37)
--- NOTE | 2019-09-19 22:30 | PC.NURSE ---
Home meds Pt reports taking all home medications at night with exception of Lisinopril which she takes in the morning. Reports she has not had her night time medications including amlodipine, aspirin, atorvastatin. Meds not scheduled to start till 0900 in the morning, Dr. Patel notified and received orders to start tonight.
[2019-09-19] MEDS: amlodipine 10 mg Tablet PO (22:56)
[2019-09-19] MEDS: atorvastatin 40 mg Tablet 20 MG PO (22:56)
[2019-09-19] MEDS: cyclobenzaprine 10 mg Tablet 5 MG PO (22:57)
[2019-09-19] MEDS: aspirin 81 mg EC Tablet PO (22:57)
--- NOTE | 2019-09-19 23:52 | PC.NURSE ---
Vitamin D Pt reports taking her 50,000 unit vitamin D Q7 days every tuesday. Dr. Patel notified and received orders to reschedule start time to Wednesday 09/20.
[2019-09-20] VITALS (38 sets, daily range): BP systolic 96–160; BP diastolic 53–92; PULSE 78–104; RESP 13–28; TEMP 36.8–37.1; O2SAT 93–97
[2019-09-20 00:55] LABS: LAB Peripheral Smear Sent for Review
[2019-09-20] MEDS: dexamethasone 4 mg/mL INJ IVP ×4 (02:36→20:29)
[2019-09-20] MEDS: piperacillin-tazobactam 3.375 GM in sodium chloride 0.9% (plus) 50 ML IV ×3 (04:38→20:27)
[2019-09-20 04:55] LABS: Basophils # 1.6 10^3/uL (0.0-0.1); Basophils % 3.7 %; Eosinophils # 0.1 10^3/uL (0.0-0.8); Eosinophils % 0.1 %; Hematocrit 41.7 % (37.0-47.0); Hemoglobin 13.6 g/dL (11.5-15.3); Lymphocytes % 4.4 %; Mean Corpuscular HGB Conc 32.6 g/dL (30.0-36.0); Mean Corpuscular Hemoglobin 29.7 pg (28.0-34.0); Mean Platelet Volume 10.2 fL (7.4-10.4); Monocytes # 0.8 10^3/uL (0.2-0.9); Monocytes % 1.8 %; Neutrophils # 32.9 10^3/uL (1.8-7.7); Neutrophils % 74.5 %; Nucleated Red Blood Cells % 0 %; Platelet Count 1144 10^3/cmm (130-400); Red Blood Count 4.58 10^6/uL (4.1-5.3); Red Cell Distribution Width 14.6 % (12.1-15.1)
[2019-09-20 05:08] LABS: INR 1.08 (0.8-1.2)
[2019-09-20 05:22] LABS: Alanine Aminotransferase 20 U/L (0-33); Albumin Level 3.6 g/dL (3.5-5.2); Alkaline Phosphatase 108 IU/L (35-105); Anion Gap 16.5 (5-19); Aspartate Amino Transferase 21 U/L (0-32); Blood Urea Nitrogen 15 mg/dL (8-23); Calcium 9.3 mg/dL (8.5-10.5); Carbon Dioxide 27 mmol/L (22-29); Chloride 98 mmol/L (98-107); Glomerular Filtration Rate 122.7 mL/min (90-130); Glucose 115 mg/dL (65-115); Magnesium 2.3 mg/dL (1.7-2.3); Osmolality Calculated 281 mOsm/kg (285-295); Potassium 4.5 mmol/L (3.5-5.1); Sodium 137 mmol/L (136-145); Total Bilirubin 0.5 mg/dL (0.15-1.2); Total Protein 6.6 g/dL (6.6-8.7)
--- NOTE | 2019-09-20 05:43 | PC.NURSE ---
Sacrum Medial sacrum has previous loss of skin integrity and healing. Area is pink/white scar tissue and extends to anus. Measures 8.5cm L X 3 cm W, skin is intact. Bright redness around anus. Aloe vesta applied, patient on Q2H turn schedule.
[2019-09-20 06:26] LABS: Slide Review Slide Review Perform
[2019-09-20 06:34] LABS: White Blood Count 44.2 10^3/uL (4.0-10.0)
[2019-09-20] MEDS: lidocaine 5% Patch 1 PATCH TOPICAL ×2 (08:01→21:07)
[2019-09-20] MEDS: lisinopril 20 mg Tablet 40 MG PO (08:02)
[2019-09-20] MEDS: sennosides-docusate Tablet 2 TAB PO ×2 (08:02→18:22)
[2019-09-20] MEDS: oxyCODONE IR 30 mg Tablet 15 MG PO ×2 (08:02→16:02)
[2019-09-20] MEDS: docusate sodium 100 mg Capsule PO ×2 (08:03→18:22)
[2019-09-20] MEDS: pantoprazole 40 mg SDV IVP ×2 (08:03→18:22)
[2019-09-20] MEDS: polyethylene glycol 3350 Pkt 17 gm PO (08:04)
--- NOTE | 2019-09-20 08:16 | P.CONIM_ITS ---
Providers/Reason For Consult Consulting Physican/Specialty*: Latanya Barajas MD/Neurosurgery Reason for Consult*: Thoracic burst fracture Attending Physician: Mary Gonzalez MD Primary Care Provider: Dennis Miranda MD History of Present Illness History of Present Illness Mary Cristobal is a 69 year old female who presented to the emergency department with a one-week history of progressive mid-low back pain. She has a history of peripheral neuropathy and osteoporosis. She has been essentially wheelchair-bound for the prior 4-5 years. She reports limited ambulation with a walker 10 years ago, and had previously ambulated with a cane. She has a history of cervical cancer treated with radiation therapy approximately 35 years ago, following which she developed peripheral neuropathy and progressive gait instability. She lives independently, but is assisted by her daughter who is a nurse and lives next door. Her chronic pain is managed with narcotics, but became refractory to her regular medication regimen over the past week. She was recently started on tizanidine by her primary care provider. She has chronic bowel and bladder issues that worsened following the pain exacerbation. She has a history of prior thoracic and lumbar compression/burst fractures. In the course of her work-up in the ED, marked leukocytosis and thrombocytosis was noted. CT imaging demonstrated chronic appearing T7, T8, T9 and L3 fractures, with an acute/subacute T12 fracture. Severe stenosis was noted at L3-L4 and L4- L5. The patient was admitted to the ICU by the Hospitalist service for medical work-up and management. Neurosurgery consultation was requested for assistance with management of acute spine issues. Review of Systems Const: Reports: change in appetite (decreased appetite) and fatigue; Denies: fever(s) or chills Eyes: Denies: change in vision ENMT: Reports: dry mouth Card: Denies: chest pain, swelling of feet/ankles or lightheadedness Resp: Reports: productive cough; Denies: dyspnea or hemoptysis GI: Reports: constipation (recent) and other (chronic, intermittent incontinence); Denies: abdominal pain, nausea, vomiting, hematemesis or hematochezia : Reports: urinary frequency and urinary incontinence (chronic intermittent); Denies: difficulty voiding or dysuria Musc: Reports: back pain Skin/Breast: Denies: rash Neuro: Reports: weakness in extremities; Denies: numbness in extremities Psych: Denies: anxiety Meds/Allergies Home Medications and Allergies Home Medications Medication Instructions Recorded Confirmed Last Taken Type aspirin 81 mg tablet,delayed 81 mg PO DAILY 03/26/19 09/27/19 09/18/19 History release nitroglycerin 0.4 mg sublingual 0.4 mg SUBLINGUAL Q5M PRN 03/26/19 09/27/19 Unknown History tablet omeprazole 20 mg capsule,delayed 20 mg PO DAILY cap 03/26/19 09/27/19 09/18/19 History release simvastatin 40 mg tablet 40 mg PO DAILY 03/26/19 09/27/19 09/18/19 History amlodipine 10 mg tablet 10 mg PO DAILY #90 tab 04/20/19 09/27/19 09/18/19 Rx lisinopril 40 mg tablet 40 mg PO DAILY #30 tab 07/30/19 09/27/19 09/19/19 Rx tizanidine 4 mg capsule 4 - 8 mg PO BID PRN #60 cap 09/11/19 09/27/19 09/19/19 Rx 8 mg Aleve See Rx Instructions .ROUTE .COMPLEX 09/19/19 09/27/19 Unknown History Imodium A-D See Rx Instructions .ROUTE .COMPLEX 09/19/19 09/27/19 Unknown History Keflex 500 mg PO DAILY 09/19/19 09/27/19 09/18/19 History Visine Totality See Rx Instructions .ROUTE .COMPLEX 09/19/19 09/27/19 Unknown History Vitamin D2 1,250 mcg PO Q7D 09/19/19 09/27/19 Unknown History oxcarbazepine 600 mg PO BEDTIME 09/19/19 09/27/19 09/18/19 History lidocaine [Lidoderm] 1 patch TOPICAL O12O12 #14 ea 09/24/19 09/27/19 Unknown Rx sennosides-docusate sodium 2 tab PO BID PRN #60 tab 09/24/19 09/27/19 Unknown Rx oxycodone 15 mg tablet 15 mg PO TID PRN 30 Days #90 tab 09/27/19 09/27/19 Unknown Rx Allergies Allergy/AdvReac Type Severity Reaction Status Date / Time meperidine [From Demerol] Allergy Unknown Verified 09/27/19 13:09 morphine tab Allergy Unknown Uncoded 09/27/19 13:09 Current Medications Current Medications Generic Name Dose Route Start Last Admin Trade Name Freq PRN Reason Stop Dose Admin Amlodipine Besylate 10 mg 09/19/19 22:40 09/19/19 22:56 Norvasc PO 10 mg BEDTIME MEGAN Administration Aspirin 81 mg 09/19/19 22:45 09/19/19 22:57 Aspirin Ec PO 81 mg BEDTIME MEGAN Administration Atorvastatin Calcium 20 mg 09/19/19 22:40 09/19/19 22:56 Lipitor PO 20 mg BEDTIME MEGAN Administration Cyclobenzaprine HCl 5 mg 09/19/19 19:54 09/19/19 22:57 Flexeril PO 5 mg TID PRN Administration MUSCLE SPASMS Dexamethasone 4 mg 09/19/19 20:00 09/20/19 08:03 Decadron IVP 4 mg Q6H MEGAN Administration Docusate Sodium 100 mg 09/20/19 09:00 09/20/19 08:03 Colace PO 100 mg BID MEGAN Administration Enoxaparin Sodium 40 mg 09/19/19 20:05 09/19/19 21:36 Lovenox SUBCUT 40 mg Q24H MEGAN Administration Hydromorphone HCl 2 mg 09/19/19 20:05 09/20/19 04:46 Dilaudid Tab PO 2 mg Q6H PRN Administration BREAKTHROUGH PAIN Piperacillin Sod/Tazobactam 50 mls @ 12.5 mls/hr 09/19/19 20:00 09/20/19 04:38 Sod 3.375 gm/ Sodium Chloride IV 12.5 mls/hr Q8H MEGAN Administration Protocol As Directed Lidocaine 1 patch 09/19/19 21:00 09/20/19 08:01 Lidoderm 5% Patch TOPICAL 1 patch O12O12 MEGAN Administration Lisinopril 40 mg 09/20/19 09:00 09/20/19 08:02 Prinivil PO 40 mg DAILY MEGAN Administration Morphine Sulfate 4 mg 09/19/19 20:05 09/19/19 23:02 Morphine IVP 4 mg Q4H PRN Administration SEVERE PAIN Oxycodone HCl 15 mg 09/19/19 20:05 09/20/19 08:02 Oxycodone Ir PO 15 mg TID PRN Administration pain Pantoprazole Sodium 40 mg 09/20/19 09:00 09/20/19 08:03 Protonix IVP 40 mg BID MEGAN Administration Polyethylene Glycol 17 gm 09/20/19 09:00 09/20/19 08:04 Miralax PO 17 gm DAILY MEGAN Administration Senna/Docusate Sodium 2 tab 09/20/19 09:00 09/20/19 08:02 Senna-S PO 2 tab BID MEGAN Administration PFSH Acute PFSH: Medical History Burst fracture of lumbar vertebra Cervical cancer s/p radiation treatment (>35 yrs ago) Chronic hepatitis C Compression fracture chronic thoracic spine GERD (gastroesophageal reflux disease) HTN (hypertension), benign Hyperlipidemia Incarcerated hiatal hernia 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 Osteoporosis, disuse Peripheral neuropathy Stenosis, spinal, lumbar Wheelchair bound Surgical History History of arthroplasty of left ankle Status post total left knee replacement Family History Other Diabetes Heart disease Social History Smoking and tobacco status: never smoked Alcohol intake: never Lives independently: Yes Marital status: / Number of children: 5 Number of grandchildren: 7 Current occupational status: retired History of recent travel: No Vitals/I&O/Wt Last Vital Signs Temp 98.3 F 09/20/19 04:00 Pulse 89 09/20/19 06:00 Resp 19 H 09/20/19 08:02 BP 124/78 09/20/19 06:00 Pulse Ox 95 09/20/19 08:02 09/19/19 09/20/19 09/20/19 22:59 06:59 14:59 Intake Total 170 / 170 Output Total 230 / 230 Balance -60 / -60 Weight last 48 hrs Weight 153 lb 11.2 oz Weight 152 lb 8 oz Weight 150 lb Physical Exam Const: COMMON NORMALS: no acute distress and alert GENERAL APPEARANCE: cooperative and comfortable HENMT: COMMON NORMALS: normocephalic and hearing grossly normal bilaterally HEAD & SCALP: normocephalic FACE & SINUS: face symmetric Eye: COMMON NORMALS: EOMs intact bilaterally and conjunctivae normal ALIGNMENT: Yes alignment normal CONJUNCTIVA: Yes conjunctivae normal Neck/C-Spine: COMMON NORMALS: supple and no JVD GENERAL: Yes trachea midline Resp: COMMON NORMALS: normal respiratory effort EFFORT & INSPECTION: Yes able to speak in complete sentences and No tachypneic Cardio: COMMON NORMALS: no JVD Back/Pelvis: THORACIC SPINE/UPPER BACK: Yes pain with ROM and Yes thoracic spinal tenderness LUMBAR SPINE/LOWER BACK: Yes pain with ROM and Yes lumbar spinal tenderness Extremity: COMMON NORMALS: no clubbing, cyanosis or edema LEFT LOWER EXTR EMITY: Yes knee joint Left knee: Yes inspection (Well-healed total knee replacement surgical scar) Neuro: COMMON NORMALS: moves all extremities SENSORIUM/ORIENTATION: Yes alert SPEECH: speech normal GAIT: Yes Other gait observations present (unable to ambulate for 4-5 years) SENSORY EXAM: Yes extremities (marked sensory loss below knees, bilateral; L5>S1 sensation to light touch) MOTOR EXAM: Abnormal motor strength present (marked diffuse left > right lower extremity weakness, 0-1/5 in EHL and L DF) Psych: COMMON NORMALS: mental status grossly normal and speech normal ATTITUDE: Yes calm and Yes engaged ACTIVITY/MOTOR BEHAVIOR: Yes appropriate eye contact SPEECH: Yes normal speech MOOD & AFFECT: Yes euthymic mood ATTENTION/CONCENTRATION: Yes attention grossly intact MEMORY/COGNITION: Yes memory grossly intact INSIGHT: Good insight present (Psych) JUDGEMENT: Good judgement present (Psych) Skin: COMMON NORMALS: no rashes or lesions noted GENERAL SKIN EXAM: no rashes or lesions noted Urinary Catheter Management^: Aquino: Cath Placed During This Visit: yes Urinary Catheter Date of Insertion: 09/19/19 Urinary Catheter Time of Insertion: 22:45 Data Micro: Micro: Microbiology 09/19/19 20:20 Blood Culture - Pr eliminary Blood [facility] 09/19/19 20:15 Blood Culture - Pr eliminary Blood [facility] Imaging^: Other CT: Radiologist's impression: 1. Acute mild burst fracture T12 with 4.4 mm retropulsion and mild contact on the ventral thecal sac. 2. Remote appearing 50% burst fracture of L3 resulting in moderate central and bilateral subarticular recess stenosis. 3. Moderate to severe central, foraminal subarticular recess stenosis at L3-4. 4. Moderate to severe central, bilateral subarticular recess stenosis and mild LEFT foraminal stenosis at L4-5. CT Abd/Pel: Radiologist's impression: 1. No acute findings. 2. Small right upper lobe nodules the larger measuring 4 mm. Twelve month follow-up recommended only if patient is considered high risk as per Fleischner protocol. 3. Multiple thoracic compression fractures are probably chronic. Correlate for any recent symptoms. A&P Assessment and plan (1) Burst fracture of thoracic vertebra: Patient with known osteoporosis and a history of thoracic and lumbar burst/compression fractures is admitted with acute back pain exacerbation and prominent leukocytosis/thrombocytosis. She has chronic lower extremity and bowel/bladder dysfunction that is likely related to peripheral neuropathy and severe spinal stenosis. Imaging studies demonstrated chronic T7, T8, T9 and L3 vertebral body fractures. A 2017 chest x-ray confirms the T7, T8 and T9 fractures as chronic. An acute/subacute T12 burst fracture is also suggested. There is mild canal stenosis related to retropulsed bone from the T12 fracture. There is marked spinal stenosis, with asymmetry toward the left, related to the chronic L3 burst fracture. There is severe spinal stenosis at L3-L4 > L4-L5 related to degenerative disc/joint disease. A lengthy discussion occurred with the patient regarding the clinical and radiographic findings. Diagnostic and treatment options were reviewed with the risks, potential benefits, and rationale for each. Questions were answered to her reported satisfaction. Recommendations were made for bed rest/up with assist only until a TLSO brace fitting is performed by physical therapy. Activity restrictions/modifications were discussed. Further evaluation with thoracic and lumbar MRI exams is recommended, when medically appropriate. Medical work-up/management of leukocytosis and thrombocytosis will be performed by Dr. Gonzalez. No emergent surgical intervention is recommended at this time. Status: Acute (2) Burst fracture of lumbar vertebra: Status: Acute (3) Stenosis, spinal, lumbar: Status: Acute (4) Compression fracture: Status: Acute (5) Osteoporosis, disuse: Status: Chronic (6) Thrombocytosis: Status: Acute (7) Leukocytosis: Status: Acute 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 Qualified Code(s): G62.82 - Radiation-induced polyneuropathy Consult Attestations Medical Necessity Statement: Patient is appropriate for in-hospital evaluation and treatment of multiple laboratory abnormalities and a new spine fracture. Time Spent in Patient Care: 16 - 35 minutes Coding Level of Care Code Acute Powerplant Operator for Chg Fwd Exam Comprehensive Diagnoses Burst fracture of thoracic vertebra S22.001A Burst fracture of lumbar vertebra S32.001A Stenosis, spinal, lumbar M48.061 Compression fracture Osteoporosis, disuse M81.8 Thrombocytosis D47.3 Leukocytosis D72.829 Leukocytosis type: unspecified Peripheral neuropathy G62.82 Peripheral neuropathy type: polyneuropathy due to radiation
[2019-09-20] MEDS: cyclobenzaprine 10 mg Tablet 5 MG PO ×2 (08:41→16:05)
[2019-09-20] MEDS: morphine 4 mg/mL SDV 1 mL IVP (08:42)
--- NOTE | 2019-09-20 11:20 | P.PN_ITS ---
Subjective Subjective: Interval history: Overnight required a total of 4 mg of oral Dilaudid, 4 mg of IV morphine, oxycodone 15 mg, 2 doses of Flexeril, lidocaine patch in addition to scheduled steroids. Is able to sit up some this morning and have breakfast though just for short period of time. Noted improvement in leukocytosis with white count at 44.2, platelet count at 1144. Normal chemis try. Urine cultures so far growing gram-negative rods. Placement of Aquino catheter overnight, had to 30 mL urine output. Seen by Dr. Barajas earlier this morning, back brace recommended. Medications: Reviewed: Yes Medication Review Details: Active Medications Generic Name Dose Route Start Last Admin Trade Name Freq PRN Reason Stop Dose Admin Acetaminophen 650 mg 09/19/19 20:05 Tylenol PO Q6H PRN MILD PAIN Amlodipine Besylat e 10 mg 09/19/19 22:40 09/19/19 22:56 Norvasc PO 10 mg BEDTIME MEGAN Administration Aspirin 81 mg 09/19/19 22:45 09/19/19 22:57 Aspirin Ec PO 81 mg BEDTIME MEGAN Administration Atorvastatin Calci um 20 mg 09/19/19 22:40 09/19/19 22:56 Lipitor PO 20 mg BEDTIME MEGAN Administration Cyclobenzaprine HC l 5 mg 09/19/19 19:54 09/20/19 08:41 Flexeril PO 5 mg TID PRN Administration MUSCLE SPASMS Dexamethasone 4 mg 09/19/19 20:00 09/20/19 08:03 Decadron IVP 4 mg Q6H MEGAN Administration Docusate Sodium 100 mg 09/20/19 09:00 09/20/19 08:03 Colace PO 100 mg BID MEGAN Administration Enoxaparin Sodium 40 mg 09/19/19 20:05 09/19/19 21:36 Lovenox SUBCUT 40 mg Q24H MEGAN Administration Ergocalciferol 50,000 unit 09/21/19 09:00 Vitamin D2 PO Q7D MEGAN Hydromorphone HCl 2 mg 09/19/19 20:05 09/20/19 10:59 Dilaudid Tab PO 2 mg Q6H PRN Administration BREAKTHROUGH PAIN Piperacillin Sod/T azobactam 50 mls @ 12.5 mls /hr 09/19/19 20:00 09/20/19 08:40 Sod 3.375 gm/ So dium Chloride IV Infused Q8H MEGAN Infusion Protocol As Directed Lidocaine 1 patch 09/19/19 21:00 09/20/19 08:01 Lidoderm 5% Patc h TOPICAL 1 patch [id number] MEGAN Administration Lisinopril 40 mg 09/20/19 09:00 09/20/19 08:02 Prinivil PO 40 mg DAILY MEGAN Administration Lorazepam 2 mg 09/19/19 20:05 Ativan IVP Q6H PRN ANXIETY Magnesium Hydroxid e 30 ml 09/19/19 20:05 Milk Of Magnesia PO DAILY PRN CONSTIPATION Morphine Sulfate 4 mg 09/19/19 20:05 09/20/19 08:42 Morphine IVP 4 mg Q4H PRN Administration SEVERE PAIN Nitroglycerin 0.4 mg 09/19/19 20:05 Nitrostat SUBLINGUAL Q5M PRN Chest Pain Ondansetron HCl 4 mg 09/19/19 20:05 Zofran IVP Q6H PRN NAUSEA AND VOMITI NG Oxycodone HCl 15 mg 09/19/19 20:05 09/20/19 08:02 Oxycodone Ir PO 15 mg TID PRN Administration pain Pantoprazole Sodiu m 40 mg 09/20/19 09:00 09/20/19 08:03 Protonix IVP 40 mg BID MEGAN Administration Polyethylene Glyco l 17 gm 09/20/19 09:00 09/20/19 08:04 Miralax PO 17 gm DAILY MEGAN Administration Senna/Docusate Sod ium 2 tab 09/20/19 09:00 09/20/19 08:02 Senna-S PO 2 tab BID MEGAN Administration meperidine [From Demerol] Allergy (Verified 09/11/19 11:25) Unknown morphine tab Allergy (Uncoded 09/19/19 15:24) Unknown Vitals/I&O/Wt Last Vital Signs Temp 98.3 F 09/20/19 04:00 Pulse 89 09/20/19 06:00 Resp 20 H 09/20/19 10:59 BP 124/78 09/20/19 06:00 Pulse Ox 97 09/20/19 10:59 09/19/19 09/20/19 09/20/19 22:59 06:59 14:59 Intake Total 170 / 170 50 / 50 Output Total 230 / 230 Balance -60 / -60 50 / 50 Weight last 48 hrs Weight 69.717 kg Weight 69.173 kg Weight 68.039 kg Physical Exam Const: COMMON NORMALS: no acute distress, patient oriented x3 and alert GENERAL APPEARANCE: cooperative; not comfortable (due to back pain) ORIENTATION/CONSCIOUSNESS: Yes awake HENMT: COMMON NORMALS: normocephalic, atraumatic, hearing grossly normal bilaterally and moist oral mucous membranes HEAD & SCALP: normocephalic and atraumatic Eye: COMMON NORMALS: Equal, round and reactive pupils present, EOMs intact bilaterally and conjunctivae normal CONJUNCTIVA: Yes conjunctivae normal PUPIL: Yes Equal, round and reactive pupils present Neck/C-Spine: COMMON NORMALS: full ROM GENERAL: Yes normal visual inspection and Yes trachea midline Resp: COMMON NORMALS: normal respiratory effort, No retractions, No use of accessory muscles and clear to auscultation bilaterally EFFORT & INSPECTION: Yes able to speak in complete sentences, Yes symmetric chest movement and No tachypneic AUSCULTATION: clear to auscultation bilaterally Cardio: COMMON NORMALS: regular rate, regular rhythm, S1 normal heart sound present, S2 normal heart sound present and No murmurs present (Cardio) RATE: regular rate RHYTHM: regular rhythm HEART SOUNDS: S1 normal heart sound present and S2 normal heart sound present GI: COMMON NORMALS: Normal to inspection, nondistended, normoactive bowel sounds present, Soft to palpation and non-tender PALPATION: Yes Soft to palpation : SPECULUM EXAM - VAGINA: Yes vagina atrophic Extremity: COMMON NORMALS: normal to inspection, full ROM and no clubbing, cyanosis or edema; negative for no pedal edema Neuro: COMMON NORMALS: patient oriented x3 SENSORIUM/ORIENTATION: Yes alert GAIT: Yes Other gait observations present (able to take 2-3 steps for transfers, otherwise WC bound, Madhav lift) MOTOR EXAM: no tremor noted and Abnormal motor strength present (diminished bilaterally, worse on L) OTHER: - paresthesia of bilateral LEs, particularly at patella downward Psych: COMMON NORMALS: mental status grossly normal, Normal thought process present, cooperative, normal affect and speech normal SPEECH: Yes normal speech THOUGHT PROCESS: Normal thought process present Skin: COMMON NORMALS: no rashes or lesions noted, no jaundice, no petechiae and no mottling GENERAL SKIN EXAM: no rashes or lesions noted and scars surgical (L knee) Urinary Catheter Management^: Aquino: Cath Placed During This Visit: yes Urinary Catheter Date of Insertion: 09/19/19 Urinary Catheter Time of Insertion: 22:45 Data : 09/20/19 04:05 09/20/19 04:05 Micro: Microbiology 09/19/19 14:25 Urine Culture - Preliminary Urine,Clean Catch Gram Negative Rods 09/19/19 20:20 Blood Culture - Preliminary Blood SPECIMEN COLLECTED 09/19/19 20:15 Blood Culture - Preliminary Blood SPECIMEN COLLECTED A&P Assessment and plan (1) Compression fracture: -Has known history of chronic thoracic spine compression fracture secondary to severe osteoporosis -Over the past week has had increased pain, increased analgesic requirement -Imaging today including CT of the L-spine shows compression fractures of T7, T8, T9, T12 which appear to be chronic as well as acute burst fracture of approximately 20% with slight retropulsion of posterior superior endplate involving T12, burst fracture of 50% involving L3 that is age indeterminant with noted retropulsion as well -Has had issues chronically with incontinence both fecal and bladder but at the onset of increased pain had noted urinary retention and has not had a bowel movement for 1 week. This in conjunction with compression fracture is concerning for possible neurological deficit. Patient is currently unable to maintain supine position to get MRI imaging -Anticipate high pain requirement -Due to concern for possible neurological involvement, started on steroids -Very difficult to place Aquino catheter due to noted significant vaginal atrophy and lichen sclerosus; placed 12 F overnight -bowel regimen -strict fall precautions -Neurosurgery consult by Dr. Barajas appreciated; back brace recommended -PT/OT evaluations -muscle relaxants, lidocaine patch Status: Acute (2) Leukocytosis: -previously normal WBC; part of leukocytosis is likely due to infection (UTI) but much more than would be expected simply from infection -this with noted significant thrombocytosis is concerning for possible malignancy. Patient has a prior albeit remote hx of cervical cancer treated with radiation therapy about 35 yrs ago -No noted lymphadenopathy on CT scan of the chest, abdomen, pelvis; there is mention of small RUL nodules, cystic-appearing lesions in the liver -may need to discuss with Heme/Onc about possible bone marrow biopsy -peripheral smear pending -continue to trend WBC; remains quite high Status: Acute Qualifiers: Leukocytosis type: unspecified Qualified Code(s): D72.829 - Elevated white blood cell count, unspecified (3) Thrombocytosis: -trend platelet count -as noted above Status: Acute (4) Peripheral neuropathy: -per patient, developed following radiation therapy given for cervical cancer treatment -has progressed to the point where she has become wheelchair bound; part of her inability to ambulate is due to severe osteoporosis Status: Chronic Qualifiers: 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 On Zosyn secondary to chronicity of infection, development of UTI despite cephalosporin therapy and suspicion for malignancy and associated immunocompromise Status: Acute Qualifiers: Urinary tract infection type: acute cystitis Hematuria presence: without hematuria Qualified Code(s): N30.00 - Acute cystitis without hematuria (6) HTN (hypertension), benign: -VSS; continue to monitor -on oral antihypertensives Status: Chronic (7) Hyperlipidemia: -on statin Status: Chronic Qualifiers: Hyperlipidemia type: unspecified Qualified Code(s): E78.5 - Hyperlipidemia, unspecified (8) Osteoporosis, disuse: -per history, is quite severe -per patient, failed treatment though sounds like she was treated with bisphosphonates x 2 years with minimal improvement, further details unclear -noted thoracic compression fractures, pubic bone fractures and now L-spine compression fractures -WC bound at baseline -on high dose vitamin D Status: Chronic (9) GERD (gastroesophageal reflux disease): -PPI, particularly with steroid use Status: Chronic Qualifiers: Esophagitis presence: esophagitis presence not specified Qualified Code(s): K21.9 - Gastro-esophageal reflux disease without esophagitis Additional A&P Information -regular diet as tolerated -GI ppx with PPI -DVT ppx with Lovenox -Dispo: pending clinical improvement, was living independently with daughter Marichuy (nurse) next door -Code status: FULL code -ICU admission secondary to high pain requirement, low threshold for decompensation Attestations Medical Necessity Statement*: Patient requires hospitalization for continued aggressive pain control, treatment of UTI, pending further work-up for noted hematologic abnormality. Time Spent in Patient Care: 16 - 35 minutes (>than 50% of time spent in counselling and/or direct pt care on unit) . 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
--- NOTE | 2019-09-20 19:25 | PC.NURSE ---
Pt with severe back pain
--- NOTE | 2019-09-20 19:32 | PC.NURSE ---
Pt awake on phone, alert and oriented. Heel protectors in place pt with foot drop Offered to repostion stated she would turn later.
[2019-09-20] MEDS: enoxaparin 40 mg/0.4 mL Syringe SUBCUT (20:29)
[2019-09-20] MEDS: aspirin 81 mg EC Tablet PO (21:03)
[2019-09-20] MEDS: atorvastatin 40 mg Tablet 20 MG PO (21:03)
[2019-09-20] MEDS: amlodipine 10 mg Tablet PO (21:04)
--- NOTE | 2019-09-20 21:07 | PC.NURSE ---
pt took hs meds without difficulty. Resting in bed removed liderm patch to right lower back.
--- NOTE | 2019-09-20 21:38 | PC.NURSE ---
Pt moved to icu 6. Resting in bed visiting on phone at this time
[2019-09-21] VITALS (27 sets, daily range): BP systolic 118–187; BP diastolic 66–102; PULSE 70–97; RESP 14–24; TEMP 36.8–37.2; O2SAT 91–97
[2019-09-21] MEDS: dexamethasone 4 mg/mL INJ IVP ×4 (02:05→20:27)
[2019-09-21] MEDS: piperacillin-tazobactam 3.375 GM in sodium chloride 0.9% (plus) 50 ML IV ×3 (04:11→20:27)
[2019-09-21 05:31] LABS: Hemoglobin 13.8 g/dL (11.5-15.3); Mean Corpuscular HGB Conc 32.1 g/dL (30.0-36.0); Mean Corpuscular Hemoglobin 29.1 pg (28.0-34.0); Mean Corpuscular Volume 90.7 fL (81-99); Mean Platelet Volume 10.5 fL (7.4-10.4); Nucleated Red Blood Cells % 0 %; Platelet Count 1090 10^3/cmm (130-400); Red Blood Count 4.74 10^6/uL (4.1-5.3); Red Cell Distribution Width 14.2 % (12.1-15.1)
[2019-09-21 06:18] LABS: White Blood Count 59.2 10^3/uL (4.0-10.0)
[2019-09-21 06:19] LABS: Slide Review Slide Review Perform
[2019-09-21 06:20] LABS: Absolute Segmented Neutrophil 39.1 10/cmm (1.6-7.1); Band Neutrophils Absolute 13.6 10^3/cmm (0.0-1.2); Lymphocytes 4 %; Monocytes Absolute 0.6 10^3/cmm (0.1-0.6); Segmented Neutrophils 66 %; Total Cells Counted 100 (0-100)
[2019-09-21 06:22] LABS: Absolute Neutrophil 52.7 10^3/cmm (1.4-6.5); Platelet Estimate Increased (Normal)
--- NOTE | 2019-09-21 06:44 | PC.NURSE ---
Pt with good night Dilaudid po 2mg x2 for pain. Resting in bed comfortable at this time.
--- NOTE | 2019-09-21 08:02 | P.PN_ITS ---
Subjective Subjective: Interval history: Overnight, pain controlled with 2 doses of oral dilaudid, has found the back brace quite helpful. Has requested removal of SCDs due to increased numbness and tingling in her lower extremities. Leukocytosis increased (44.2->59.2) and thrombocytosis stable (1090). Stable labs otherwise. Afebrile, hemodynamically stable. Daughter coming later this AM for teaching including use of brace. Medications: Reviewed: Yes Medication Review Details: Active Medications Generic Name Dose Route Start Last Admin Trade Name Freq PRN Reason Stop Dose Admin Acetaminophen 650 mg 09/19/19 20:05 Tylenol PO Q6H PRN MILD PAIN Amlodipine Besylat e 10 mg 09/19/19 22:40 09/20/19 21:04 Norvasc PO 10 mg BEDTIME MEGAN Administration Aspirin 81 mg 09/19/19 22:45 09/20/19 21:03 Aspirin Ec PO 81 mg BEDTIME MEGAN Administration Atorvastatin Calci um 20 mg 09/19/19 22:40 09/20/19 21:03 Lipitor PO 20 mg BEDTIME MEGAN Administration Cyclobenzaprine HC l 5 mg 09/19/19 19:54 09/20/19 16:05 Flexeril PO 5 mg TID PRN Administration MUSCLE SPASMS Dexamethasone 4 mg 09/19/19 20:00 09/21/19 02:05 Decadron IVP 4 mg Q6H MEGAN Administration Docusate Sodium 100 mg 09/20/19 09:00 09/20/19 18:22 Colace PO 100 mg BID MEGAN Administration Enoxaparin Sodium 40 mg 09/19/19 20:05 09/20/19 20:29 Lovenox SUBCUT 40 mg Q24H MEGAN Administration Ergocalciferol 50,000 unit 09/21/19 09:00 Vitamin D2 PO Q7D MEGAN Hydromorphone HCl 2 mg 09/19/19 20:05 09/21/19 06:25 Dilaudid Tab PO 2 mg Q6H PRN Administration BREAKTHROUGH PAIN Piperacillin Sod/T azobactam 50 mls @ 12.5 mls /hr 09/19/19 20:00 09/21/19 04:11 Sod 3.375 gm/ So dium Chloride IV 12.5 mls/hr Q8H MEGAN Administration Protocol As Directed Lidocaine 1 patch 09/19/19 21:00 09/20/19 21:07 Lidoderm 5% Patc h TOPICAL 1 patch [id number] MEGAN Administration Lisinopril 40 mg 09/20/19 09:00 09/20/19 08:02 Prinivil PO 40 mg DAILY MEGAN Administration Lorazepam 2 mg 09/19/19 20:05 Ativan IVP Q6H PRN ANXIETY Magnesium Hydroxid e 30 ml 09/19/19 20:05 Milk Of Magnesia PO DAILY PRN CONSTIPATION Morphine Sulfate 4 mg 09/19/19 20:05 09/20/19 08:42 Morphine IVP 4 mg Q4H PRN Administration SEVERE PAIN Nitroglycerin 0.4 mg 09/19/19 20:05 Nitrostat SUBLINGUAL Q5M PRN Chest Pain Ondansetron HCl 4 mg 09/19/19 20:05 Zofran IVP Q6H PRN NAUSEA AND VOMITI NG Oxycodone HCl 15 mg 09/19/19 20:05 09/20/19 16:02 Oxycodone Ir PO 15 mg TID PRN Administration pain Pantoprazole Sodiu m 40 mg 09/20/19 09:00 09/20/19 18:22 Protonix IVP 40 mg BID MEGAN Administration Polyethylene Glyco l 17 gm 09/20/19 09:00 09/20/19 08:04 Miralax PO 17 gm DAILY MEGAN Administration Senna/Docusate Sod ium 2 tab 09/20/19 09:00 09/20/19 18:22 Senna-S PO 2 tab BID MEGAN Administration meperidine [From Demerol] Allergy (Verified 09/11/19 11:25) Unknown morphine tab Allergy (Uncoded 09/19/19 15:24) Unknown Vitals/I&O/Wt Last Vital Signs Temp 98.2 F 09/21/19 04:00 Pulse 73 09/21/19 06:00 Resp 18 09/21/19 06:25 BP 122/72 09/21/19 06:00 Pulse Ox 93 09/21/19 06:00 09/20/19 09/21/19 09/21/19 22:59 06:59 14:59 Intake Total 340 / 1040 170 / 1210 Output Total 750 / 750 260 / 1010 Balance -410 / 290 -90 / 200 Weight last 48 hrs Weight 72.212 kg Weight 69.717 kg Weight 69.173 kg Weight 68.039 kg Physical Exam Const: COMMON NORMALS: no acute distress, patient oriented x3 and alert GENERAL APPEARANCE: cooperative, comfortable and anxious ORIENTATION/CON SCIOUSNESS: Yes awake HENMT: COMMON NORMALS: normocephalic, atraumatic, hearing grossly normal bilaterally and moist oral mucous membranes HEAD & SCALP: normocephalic and atraumatic Eye: COMMON NORMALS: Equal, round and reactive pupils present, EOMs intact bilaterally and conjunctivae normal CONJUNCTIVA: Yes conjunctivae normal PUPIL: Yes Equal, round and reactive pupils present Neck/C-Spine: COMMON NORMALS: full ROM GENERAL: Yes normal visual inspection and Yes trachea midline Resp: COMMON NORMALS: normal respiratory effort, No retractions, No use of accessory muscles and clear to auscultation bilaterally EFFORT & INSPECTION: Yes able to speak in complete sentences, Yes symmetric chest movement and No tachypneic AUSCULTATION: clear to auscultation bilaterally Cardio: COMMON NORMALS: regular rate, regular rhythm, S1 normal heart sound present, S2 normal heart sound present and No murmurs present (Cardio) RATE: regular rate RHYTHM: regular rhythm HEART SOUNDS: S1 normal heart sound present and S2 normal heart sound present GI: COMMON NORMALS: Normal to inspection, nondistended, normoactive bowel sounds present, Soft to palpation and non-tender PALPATION: Yes Soft to palpation : SPECULUM EXAM - VAGINA: Yes vagina atrophic Extremity: COMMON NORMALS: normal to inspection, full ROM and no clubbing, cyanosis or edema; negative for no pedal edema Neuro: COMMON NORMALS: patient oriented x3 SENSORIUM/ORIENTATION: Yes alert GAIT: Yes Other gait observations present (able to take 2-3 steps for transfers, otherwise WC bound, Madhav lift) MOTOR EXAM: no tremor noted and Abnormal motor strength present (diminished bilaterally, worse on L) OTHER: - paresthesia of bilateral LEs, particularly at level of patella downward Psych: COMMON NORMALS: mental status grossly normal, Normal thought process present, cooperative, normal affect and speech normal SPEECH: Yes normal s peech THOUGHT PROCESS: Normal thought process present Skin: COMMON NORMALS: no rashes or lesions noted, no jaundice, no petechiae and no mottling GENERAL SKIN EXAM: no rashes or lesions noted and scars surgical (L knee) Urinary Catheter Management^: Aquino: Cath Placed During This Visit: yes Reason for Continuing Indwelling Catheter: Other Urinary Catheter Date of Insertion: 09/19/19 Urinary Catheter Time of Insertion: 22:45 Data : 09/21/19 04:39 09/20/19 04:05 Micro: Microbiology 09/19/19 20:20 Blood Culture - Preliminary Blood NEGATIVE TO DATE 09/19/19 20:15 Blood Culture - Preliminary Blood NEGATIVE TO DATE 09/19/19 14:25 Urine Culture - Preliminary Urine,Clean Catch Gram Negative Rods A&P Assessment and plan (1) Compression fracture: -Has known history of chronic thoracic spine compression fracture secondary to severe osteoporosis -Over the past week has had increased pain, increased analgesic requirement -Imaging today including CT of the L-spine shows compression fractures of T7, T8, T9, T12 which appear to be chronic as well as acute burst fracture of aydee roximately 20% with slight retropulsion of posterior superior endplate involving T12, burst fracture of 50% involving L3 that is age indeterminant with noted retropulsion as well -Has had issues chronically with incontinence both fecal and bladder but at the onset of increased pain had noted urinary retention and has not had a bowel movement for 1 week. This in conjunction with compression fracture is concerning for possible neurological deficit. Patient is currently unable to maintain supine position to get MRI imaging but would plan for this as outpatient -Anticipate high pain requirement; good response with dilaudid PO -Due to concern for possible neurological involvement, started on steroids -Very difficult to place Aquino catheter initially due to noted significant vaginal atrophy and lichen sclerosus; placed 12 F -bowel regimen -strict fall precautions -Neurosurgery consult by Dr. Barajas appreciated; back brace recommended -PT/OT evaluations appreciated -muscle relaxants, lidocaine patch Status: Acute (2) Leukocytosis: -previously normal WBC; part of leukocytosis is likely due to infection (U TI) but much more than would be expected simply from infection -this with noted significant thrombocytosis is concerning for possible malignancy. Patient has a prior albeit remote hx of cervical cancer treated with radiation therapy about 35 yrs ago -No noted lymphadenopathy on CT scan of the chest, abdomen, pelvis; there is mention of small RUL nodules, cystic-appearing lesions in the liver -may need to discuss with Heme/Onc about possible bone marrow biopsy -peripheral smear noted with marked leukocytosis with left shift and rare blasts, marked thrombocytosis. Wide differential and will need further discussion of this with hematology/oncology 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 On Zosyn secondary to chronicity of infection, development of UTI despite cephalosporin therapy and suspicion for malignancy and associated immunocompromise Status: Acute Qualifiers: Urinary tract infection type: acute cystitis Hematuria presence: without hematuria Qualified Code(s): N30.00 - Acute cystitis without hematuria (6) HTN (hypertension), benign: -VSS; continue to monitor -on oral antihypertensives Status: Chronic (7) Hyperlipidemia: -on statin Status: Chronic Qualifiers: Hyperlipidemia type: unspecified Qualified Code(s): E78.5 - Hyperlipidemia, unspecified (8) Osteoporosis, disuse: -per history, is quite severe -per patient, failed treatment though sounds like she was treated with bisphosphonates x 2 years with minimal improvement, further details unclear -noted thoracic compression fractures, pubic bone fractures and now L-spine compression fractures -WC bound at baseline -on high dose vitamin D Status: Chronic (9) GERD (gastroesophageal reflux disease): -PPI, particularly with steroid use Status: Chronic Qualifiers: Esophagitis presence: esophagitis presence not specified Qualified Code(s): K21.9 - Gastro-esophageal reflux disease without esophagitis Additional A&P Information -regular diet as tolerated -GI ppx with PPI -DVT ppx with Lovenox -Dispo: pending clinical improvement, was living independently with daughter Marichuy (nurse) next door and additional family support as needed -Code status: FULL code -ICU admission secondary to high pain requirement, low threshold for decompensation Attestations Medical Necessity Statement*: Patient requires hospitalization for continued pain control, treatment of urinary tract infection pending culture results, no rosita persistent leukocytosis and thrombocytosis. Time Spent in Patient Care: 16 - 35 minutes (>than 50% of time spent in counselling and/or direct pt care on unit) . 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
[2019-09-21] MEDS: oxyCODONE IR 30 mg Tablet 15 MG PO (09:01)
[2019-09-21] MEDS: cyclobenzaprine 10 mg Tablet 5 MG PO ×2 (09:02→22:48)
[2019-09-21] MEDS: docusate sodium 100 mg Capsule PO ×2 (09:02→18:35)
[2019-09-21] MEDS: sennosides-docusate Tablet 2 TAB PO ×2 (09:03→18:35)
[2019-09-21] MEDS: lisinopril 20 mg Tablet 40 MG PO (09:03)
[2019-09-21] MEDS: lidocaine 5% Patch 1 PATCH TOPICAL ×2 (09:04→20:38)
[2019-09-21] MEDS: polyethylene glycol 3350 Pkt 17 gm PO (09:04)
[2019-09-21] MEDS: ergocalciferol (vitamin D2) 50,000 Unit Capsule 50000 UNIT PO (09:04)
[2019-09-21] MEDS: pantoprazole 40 mg SDV IVP ×2 (09:19→18:35)
--- NOTE | 2019-09-21 14:08 | PC.NURSE ---
remains in recliner since before lunch. prefers chair.
[2019-09-21] MEDS: morphine 4 mg/mL SDV 1 mL IVP ×2 (18:34→23:19)
[2019-09-21] MEDS: amlodipine 10 mg Tablet PO (20:31)
[2019-09-21] MEDS: atorvastatin 40 mg Tablet 20 MG PO (20:31)
[2019-09-21] MEDS: enoxaparin 40 mg/0.4 mL Syringe SUBCUT (20:31)
[2019-09-21] MEDS: aspirin 81 mg EC Tablet PO (20:31)
--- NOTE | 2019-09-21 23:15 | PC.NURSE ---
Assisted to BSC with back brace in place. Small BM noted, returned to bed. Hydromorphone 2mg PO and flexaril 5mg given PO for pain while patient was up on bedside commode. Upon returning to bed, continues to have pain 8 on 0-10 pain scale. Will give morphine 4mg IV as ordered for severe pain.
[2019-09-22] VITALS (26 sets, daily range): BP systolic 121–175; BP diastolic 62–89; PULSE 70–111; RESP 13–38; TEMP 36.7–36.9; O2SAT 91–98
[2019-09-22] MEDS: dexamethasone 4 mg/mL INJ IVP ×4 (01:47→19:33)
[2019-09-22] MEDS: piperacillin-tazobactam 3.375 GM in sodium chloride 0.9% (plus) 50 ML IV (04:06)
[2019-09-22] MEDS: docusate sodium 100 mg Capsule PO (08:04)
[2019-09-22] MEDS: sennosides-docusate Tablet 2 TAB PO (08:04)
[2019-09-22] MEDS: cyclobenzaprine 10 mg Tablet 5 MG PO ×2 (08:04→19:40)
[2019-09-22] MEDS: polyethylene glycol 3350 Pkt 17 gm PO (08:04)
[2019-09-22] MEDS: pantoprazole 40 mg SDV IVP ×2 (08:05→17:02)
[2019-09-22] MEDS: lidocaine 5% Patch 1 PATCH TOPICAL (08:05)
[2019-09-22] MEDS: lisinopril 20 mg Tablet 40 MG PO (08:05)
[2019-09-22] MEDS: morphine 4 mg/mL SDV 1 mL IVP ×2 (11:14→19:37)
--- NOTE | 2019-09-22 13:15 | P.PN_ITS ---
Subjective Subjective: Interval history: Patient seen and examined earlier this morning, resting in bed, has increased back pain as she just got back in bed from the bedside commode, has had 3 bowel movements today. Discussed need for PICC line placement secondary to noted ESBL E. coli based on urine culture. Medications: Reviewed: Yes Medication Review Details: Active Medications Generic Name Dose Route Start Last Admin Trade Name Freq PRN Reason Stop Dose Admin Acetaminophen 650 mg 09/19/19 20:05 Tylenol PO Q6H PRN MILD PAIN Amlodipine Besylat e 10 mg 09/19/19 22:40 09/21/19 20:31 Norvasc PO 10 mg BEDTIME MEGAN Administration Aspirin 81 mg 09/19/19 22:45 09/21/19 20:31 Aspirin Ec PO 81 mg BEDTIME MEGAN Administration Atorvastatin Calci um 20 mg 09/19/19 22:40 09/21/19 20:31 Lipitor PO 20 mg BEDTIME MEGAN Administration Cyclobenzaprine HC l 5 mg 09/19/19 19:54 09/22/19 08:04 Flexeril PO 5 mg TID PRN Administration MUSCLE SPASMS Dexamethasone 4 mg 09/19/19 20:00 09/22/19 08:05 Decadron IVP 4 mg Q6H MEGAN Administration Docusate Sodium 100 mg 09/20/19 09:00 09/22/19 08:04 Colace PO 100 mg BID MEGAN Administration Enoxaparin Sodium 40 mg 09/19/19 20:05 09/21/19 20:31 Lovenox SUBCUT 40 mg Q24H MEGAN Administration Ergocalciferol 50,000 unit 09/21/19 09:00 09/21/19 09:04 Vitamin D2 PO 50,000 unit Q7D MEGAN Administration Hydromorphone HCl 2 mg 09/19/19 20:05 09/22/19 06:18 Dilaudid Tab PO 2 mg Q6H PRN Administration BREAKTHROUGH PAIN Imipenem/Cilastati n Sodium 500 100 mls @ 200 mls /hr 09/22/19 09:30 09/22/19 12:53 mg/ Sodium Chlor juan miguel IV Infused Q6H MEGAN Infusion Protocol Lidocaine 1 patch 09/19/19 21:00 09/22/19 08:05 Lidoderm 5% Patc h TOPICAL 1 patch [id number] MEGAN Administration Lisinopril 40 mg 09/20/19 09:00 09/22/19 08:05 Prinivil PO 40 mg DAILY MEGAN Administration Lorazepam 2 mg 09/19/19 20:05 Ativan IVP Q6H PRN ANXIETY Magnesium Hydroxid e 30 ml 09/19/19 20:05 Milk Of Magnesia PO DAILY PRN CONSTIPATION Morphine Sulfate 4 mg 09/19/19 20:05 09/22/19 11:14 Morphine IVP 4 mg Q4H PRN Administration SEVERE PAIN Nitroglycerin 0.4 mg 09/19/19 20:05 Nitrostat SUBLINGUAL Q5M PRN Chest Pain Ondansetron HCl 4 mg 09/19/19 20:05 Zofran IVP Q6H PRN NAUSEA AND VOMITI NG Oxycodone HCl 15 mg 09/19/19 20:05 09/21/19 09:01 Oxycodone Ir PO 15 mg TID PRN Administration pain Pantoprazole Sodiu m 40 mg 09/20/19 09:00 09/22/19 08:05 Protonix IVP 40 mg BID MEGAN Administration Polyethylene Glyco l 17 gm 09/20/19 09:00 09/22/19 08:04 Miralax PO 17 gm DAILY MEGAN Administration Senna/Docusate Sod ium 2 tab 09/20/19 09:00 09/22/19 08:04 Senna-S PO 2 tab BID MEGAN Administration meperidine [From Demerol] Allergy (Verified 09/11/19 11:25) Unknown morphine tab Allergy (Uncoded 09/19/19 15:24) Unknown Vitals/I&O/Wt Last Vital Signs Temp 98.5 F 09/22/19 12:00 Pulse 76 09/22/19 13:00 Resp 18 09/22/19 13:00 BP 155/81 09/22/19 13:00 Pulse Ox 94 09/22/19 13:00 09/21/19 09/22/19 09/22/19 22:59 06:59 14:59 Intake Total 490 / 780 450 / 1230 600 / 600 Output Total 350 / 350 550 / 900 300 / 300 Balance 140 / 430 -100 / 330 300 / 300 Weight last 48 hrs Weight 68.13 kg Weight 72.212 kg Physical Exam Const: COMMON NORMALS: no acute distress, patient oriented x3 and alert GENERAL APPEARANCE: cooperative, comfortable and anxious ORIENTATION/CONSCIOUSNESS: Yes awake HENMT: COMMON NORMALS: normocephalic, atraumatic, hearing grossly normal bilaterally and moist oral mucous membranes HEAD & SCALP: normocephalic and atraumatic Eye: COMMON NORMALS: Equal, round and reactive pupils present, EOMs intact bilaterally and conjunctivae normal CONJUNCTIVA: Yes conjunctivae normal PUPIL: Yes Equal, round and reactive pupils present Neck/C-Spine: COMMON NORMALS: full ROM GENERAL: Yes normal visual inspection and Yes trachea midline Resp: COMMON NORMALS: normal respiratory effort, No retractions, No use of accessory muscles and clear to auscultation bilaterally EFFORT & INSPECTION: Yes able to speak in complete sentences, Yes symmetric chest movement and No tachypneic AUSCULTATION: clear to auscultation bilaterally Cardio: COMMON NORMALS: regular rate, regular rhythm, S1 normal heart sound present, S2 normal heart sound present and No murmurs present (Cardio) RATE: regular rate RHYTHM: regular rhythm HEART SOUNDS: S1 normal heart sound present and S2 normal heart sound present GI: COMMON NORMALS: Normal to inspection, nondistended, normoactive bowel sounds present, Soft to palpation and non-tender PALPATION: Yes Soft to palpation : SPECULUM EXAM - VAGINA: Yes vagina atrophic Extremity: COMMON NORMALS: normal to inspection, full ROM and no clubbing, cyanosis or edema; negative for no pedal edema Neuro: COMMON NORMALS: patient oriented x3 SENSORIUM/ORIENTATION: Yes alert GAIT: Yes Other gait observations present (able to take 2-3 steps for transfers, otherwise WC bound, Madhav lift) MOTOR EXAM: no tremor noted and Abnormal motor strength present (diminished bilaterally, worse on L) OTHER: - paresthesia of bilateral LEs, particularly at level of patella downward Psych: COMMON NORMALS: mental status grossly normal, Normal thought process present, cooperative, normal affect and speech normal SPEECH: Yes normal speech THOUGHT PROCESS: Normal thought process present Skin: COMMON NORMALS: no rashes or lesions noted, no jaundice, no petechiae and no mottling GENERAL SKIN EXAM: no rashes or lesions noted and scars surgical (L knee) Urinary Catheter Management^: Aquino: Cath Placed During This Visit: yes Reason for Continuing Indwelling Catheter: Accurate Measurement of Urinary Output in Critically Ill Patients Urinary Catheter Date of Insertion: 09/19/19 Urinary Catheter Time of Insertion: 22:45 Data : 09/21/19 04:39 09/20/19 04:05 Micro: Microbiology 09/19/19 20:15 Blood Culture - Preliminary Blood Gram positive cocci 09/19/19 14:25 Urine Culture - Final Urine,Clean Catch Escherichia coli esbl A&P Assessment and plan (1) Compression fracture: -Has known history of chronic thoracic spine compression fracture secondary to severe osteoporosis -Over the past week has had increased pain, increased analgesic requirement -Imaging today including CT of the L-spine shows compression fractures of T7, T8, T9, T12 which appear to be chronic as well as acute burst fracture of approximately 20% with slight retropulsion of posterior superior endplate involving T12, burst fracture of 50% involving L3 that is age indeterminant with noted retropulsion as well -Has had issues chronically with incontinence both fecal and bladder but at the onset of increased pain had noted urinary retention and has not had a bowel movement for 1 week. This in conjunction with compression fracture is concerning for possible neurological deficit. Patient is currently unable to maintain supine position to get MRI imaging but would plan for this as outpatient -Anticipate high pain requirement; good response with dilaudid PO -Due to concern for possible neurological involvement, started on steroids -Very difficult to place Aquino catheter initially due to noted significant vaginal atrophy and lichen sclerosus; placed 12 F -bowel regimen -strict fall precautions -Neurosurgery consult by Dr. Barajas appreciated; back brace recommended -PT/OT evaluations appreciated -muscle relaxants, lidocaine patch Status: Acute (2) Leukocytosis: -previously normal WBC; part of leukocytosis is likely due to infection (UTI) but much more than would be expected simply from infection -this with noted significant thrombocytosis is concerning for possible malignancy. Patient has a prior albeit remote hx of cervical cancer treated with radiation therapy about 35 yrs ago -No noted lymphadenopathy on CT scan of the chest, abdomen, pelvis; there is mention of small RUL nodules, cystic-appearing lesions in the liver -discussed with Heme/Onc Dr. 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 Qualified Code(s): G62.82 - Radiation-induced polyneuropathy (5) UTI (urinary tract infection): -From history provided it sounds like patient is prone to UTIs and is on chronic suppressive antibiotic therapy -Urinalysis indicative of infection -urine cx: ESBL E.coli; sensitivity noted -blood cx prelim negative -d/c Zosyn, start on Primaxin -contact isolation precautions -PICC line placement needed due to need for continued IV antibiotics; not available on weekend, anticipate placement of this on Tuesday Status: Acute Qualifiers: Urinary tract infection type: acute cystitis Hematuria presence: without hematuria Qualified Code(s): N30.00 - Acute cystitis without hematuria (6) HTN (hypertension), benign: -VSS; continue to monitor -on oral antihypertensives Status: Chronic (7) Hyperlipidemia: -on statin Status: Chronic Qualifiers: Hyperlipidemia type: unspecified Qualified Code(s): E78.5 - Hyperlipidemia, unspecified (8) Osteoporosis, disuse: -per history, is quite severe -per patient, failed treatment though sounds like she was treated with bisphosphonates x 2 years with minimal improvement, further details unclear -noted thoracic compression fractures, pubic bone fractures and now L-spine compression fractures -WC bound at baseline -on high dose vitamin D Status: Chronic (9) GERD (gastroesophageal reflux disease): -PPI, particularly with steroid use Status: Chronic Qualifiers: Esophagitis presence: esophagitis presence not specified Qualified Code(s): K21.9 - Gastro-esophageal reflux disease without esophagitis Additional A&P Information -regular diet as tolerated -GI ppx with PPI -DVT ppx with Lovenox -Dispo: home; was living independently with daughter Marichuy (nurse) next door and additional family support as needed. Will need home health due to IV meds administration -Code status: FULL code -ICU admission secondary to high pain requirement, low threshold for decompensation Attestations Medical Necessity Statement*: Patient requires hospitalization for continued management of complicated UTI, needs continued IV antibiotic treatment based on culture results, pending PICC line placement. Time Spent in Patient Care: 16 - 35 minutes (>than 50% of time spent in counselling and/or direct pt care on unit) . 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
--- NOTE | 2019-09-22 14:58 | DCPLANNER ---
Pg 2 of IM explained to and signed by pt. No questions, copy provided.
[2019-09-22] MEDS: enoxaparin 40 mg/0.4 mL Syringe SUBCUT (19:35)
[2019-09-22] MEDS: aspirin 81 mg EC Tablet PO (19:42)
[2019-09-22] MEDS: atorvastatin 40 mg Tablet 20 MG PO (19:42)
[2019-09-22] MEDS: amlodipine 10 mg Tablet PO (19:42)
--- NOTE | 2019-09-22 19:52 | PC.NURSE ---
Bedtime mediations given early per patient request. Patient states that she is tired and would like to get some rest.
[2019-09-22] MEDS: efferdent effervescent 1 EACH DENTAL (19:54)
[2019-09-23] VITALS (17 sets, daily range): BP systolic 129–157; BP diastolic 66–91; PULSE 68–86; RESP 11–22; TEMP 36.7–37.1; O2SAT 92–98
[2019-09-23] MEDS: dexamethasone 4 mg/mL INJ IVP ×4 (02:04→20:11)
[2019-09-23] MEDS: morphine 4 mg/mL SDV 1 mL IVP ×2 (02:04→12:52)
[2019-09-23] MEDS: cyclobenzaprine 10 mg Tablet 5 MG PO ×2 (08:29→20:11)
[2019-09-23] MEDS: lisinopril 20 mg Tablet 40 MG PO (08:30)
[2019-09-23] MEDS: pantoprazole 40 mg SDV IVP (08:30)
[2019-09-23] MEDS: lidocaine 5% Patch 1 PATCH TOPICAL (08:30)
--- NOTE | 2019-09-23 09:45 | P.PN_ITS ---
Subjective Subjective: Interval history: Had 675 mL urine output overnight, had 5 BMs yesterday. Pending PICC line placement tomorrow. Pain control with 8 mg of morphine and 2 mg dose of dilaudid overnight. Spent much of the morning sitting up in a chair, seems to be in better spirits today, reiterated plan for PICC line placement tomorrow. Also let her know that case management is working on setting up IV antibiotics. Has had 2 small bowel movements today. Medications: Reviewed: Yes Medication Review Details: Active Medications Generic Name Dose Route Start Last Admin Trade Name Freq PRN Reason Stop Dose Admin Acetaminophen 650 mg 09/19/19 20:05 Tylenol PO Q6H PRN MILD PAIN Amlodipine Besylat e 10 mg 09/19/19 22:40 09/22/19 19:42 Norvasc PO 10 mg BEDTIME MEGAN Administration Aspirin 81 mg 09/19/19 22:45 09/22/19 19:42 Aspirin Ec PO 81 mg BEDTIME MEGAN Administration Atorvastatin Calci um 20 mg 09/19/19 22:40 09/22/19 19:42 Lipitor PO 20 mg BEDTIME MEGAN Administration Cyclobenzaprine HC l 5 mg 09/19/19 19:54 09/23/19 08:29 Flexeril PO 5 mg TID PRN Administration MUSCLE SPASMS Dexamethasone 4 mg 09/19/19 20:00 09/23/19 08:30 Decadron IVP 4 mg Q6H MEGAN Administration Docusate Sodium 100 mg 09/20/19 09:00 09/23/19 08:30 Colace PO Not Given BID MEGAN Enoxaparin Sodium 40 mg 09/19/19 20:05 09/22/19 19:35 Lovenox SUBCUT 40 mg Q24H MEGAN Administration Ergocalciferol 50,000 unit 09/21/19 09:00 09/21/19 09:04 Vitamin D2 PO 50,000 unit Q7D MEGAN Administration Hydromorphone HCl 2 mg 09/19/19 20:05 09/23/19 08:29 Dilaudid Tab PO 2 mg Q6H PRN Administration BREAKTHROUGH PAIN Imipenem/Cilastati n Sodium 500 100 mls @ 200 mls /hr 09/22/19 09:30 09/23/19 07:18 mg/ Sodium Chlor juan miguel IV Infused Q6H MEGAN Infusion Protocol Lidocaine 1 patch 09/19/19 21:00 09/23/19 08:30 Lidoderm 5% Patc h TOPICAL 1 patch O12O12 MEGAN Administration Lisinopril 40 mg 09/20/19 09:00 09/23/19 08:30 Prinivil PO 40 mg DAILY MEGAN Administration Lorazepam 2 mg 09/19/19 20:05 Ativan IVP Q6H PRN ANXIETY Magnesium Hydroxid e 30 ml 09/19/19 20:05 Milk Of Magnesia PO DAILY PRN CONSTIPATION Morphine Sulfate 4 mg 09/19/19 20:05 09/23/19 02:04 Morphine IVP 4 mg Q4H PRN Administration SEVERE PAIN Nitroglycerin 0.4 mg 09/19/19 20:05 Nitrostat SUBLINGUAL Q5M PRN Chest Pain Ondansetron HCl 4 mg 09/19/19 20:05 Zofran IVP Q6H PRN NAUSEA AND VOMITI NG Oxycodone HCl 15 mg 09/19/19 20:05 09/21/19 09:01 Oxycodone Ir PO 15 mg TID PRN Administration pain Pantoprazole Sodiu m 40 mg 09/20/19 09:00 09/23/19 08:30 Protonix IVP 40 mg BID MEGAN Administration Polyethylene Glyco l 17 gm 09/22/19 13:17 Miralax PO DAILY PRN CONSTIPATION Senna/Docusate Sod ium 2 tab 09/22/19 13:17 Senna-S PO BID PRN CONSTIPATION meperidine [From Demerol] Allergy (Verified 09/11/19 11:25) Unknown morphine tab Allergy (Uncoded 09/19/19 15:24) Unknown Vitals/I&O/Wt Last Vital Signs Temp 98.2 F 09/23/19 08:00 Pulse 86 09/23/19 08:00 Resp 20 H 09/23/19 08:00 BP 152/91 09/23/19 08:00 Pulse Ox 93 09/23/19 08:00 09/22/19 09/23/19 09/23/19 22:59 06:59 14:59 Intake Total 750 / 1350 200 / 1550 350 / 350 Output Total 675 / 975 200 / 200 Balance 750 / 1050 -475 / 575 150 / 150 Weight last 48 hrs Weight 65.68 kg Weight 68.13 kg Physical Exam Const: COMMON NORMALS: no acute distress, patient oriented x3 and alert GENERAL APPEARANCE: cooperative, comfortable and anxious ORIENTATION/CONSCIOUSNESS: Yes awake HENMT: COMMON NORMALS: normocephalic, atraumatic, hearing grossly normal bilaterally and moist oral mucous membranes HEAD & SCALP: normocephalic and atraumatic Eye: COMMON NORMALS: Equal, round and reactive pupils present, EOMs intact bilaterally and conjunctivae normal CONJUNCTIVA: Yes conjunctivae normal PUPIL: Yes Equal, round and reactive pupils present Neck/C-Spine: COMMON NORMALS: full ROM GENERAL: Yes normal visual inspection and Yes trachea midline Resp: COMMON NORMALS: normal respiratory effort, No retractions, No use of accessory muscles and clear to auscultation bilaterally EFFORT & INSPECTION: Yes able to speak in complete sentences, Yes symmetric chest movement and No tachypneic AUSCULTATION: clear to auscultation bilaterally Cardio: COMMON NORMALS: regular rate, regular rhythm, S1 normal heart sound present, S2 normal heart sound present and No murmurs present (Cardio) RATE: regular rate RHYTHM: regular rhythm HEART SOUNDS: S1 normal heart sound present and S2 normal heart sound present GI: COMMON NORMALS: Normal to inspection, nondistended, normoactive bowel sounds present, Soft to palpation and non-tender PALPATION: Yes Soft to palpation : BLADDER/KIDNEY EXAM: Yes catheter in place Catheter type (Female): urethral SPECULUM EXAM - VAGINA: Yes vagina atrophic Extremity: COMMON NORMALS: normal to inspection, full ROM and no clubbing, cyanosis or edema; negative for no pedal edema Neuro: COMMON NORMALS: patient oriented x3 SENSORIUM/ORIENTATION: Yes alert GAIT: Yes Other gait observations present (able to take 2-3 steps for transfers, otherwise WC bound, Madhav lift) MOTOR EXAM: no tremor noted and Abnormal motor strength present (diminished bilaterally, worse on L) OTHER: - paresthesia of bilateral LEs, particularly at level of patella downward Psych: COMMON NORMALS: mental status grossly normal, Normal thought process present, cooperative, normal affect and speech normal SPEECH: Yes normal speech THOUGHT PROCESS: Normal thought process present Skin: COMMON NORMALS: no rashes or lesions noted, no jaundice, no petechiae and no mottling GENERAL SKIN EXAM: no rashes or lesions noted and scars surgical (L knee) Urinary Catheter Management^: Aquino: Cath Placed During This Visit: yes Reason for Continuing Indwelling Catheter: Accurate Measurement of Urinary Output in Critically Ill Patients Urinary Catheter Date of Insertion: 09/19/19 Urinary Catheter Time of Insertion: 22:45 Data : 09/21/19 04:39 09/20/19 04:05 Micro: Microbiology 09/22/19 21:16 Blood Culture - Preliminary Blood SPECIMEN COLLECTED 09/22/19 21:13 Blood Culture - Preliminary Blood SPECIMEN COLLECTED 09/19/19 20:15 Blood Culture - Preliminary Blood Gram positive cocci 09/19/19 14:25 Urine Culture - Final Urine,Clean Catch Escherichia coli esbl A&P Assessment and plan (1) Compression fracture: -Has known history of chronic thoracic spine compression fracture secondary to severe osteoporosis -Over the past week has had increased pain, increased analgesic requirement -Imaging today including CT of the L-spine shows compression fractures of T7, T8, T9, T12 which appear to be chronic as well as acute burst fracture of approximately 20% with slight retropulsion of posterior superior endplate involving T12, burst fracture of 50% involving L3 that is age indeterminant with noted retropulsion as well -Has had issues chronically with incontinence both fecal and bladder but at the onset of increased pain had noted urinary retention and has not had a bowel movement for 1 week. This in conjunction with compression fracture is concerning for possible neurological deficit. Patient is currently unable to maintain supine position to get MRI imaging but would plan for this as outpatient -Anticipate high pain requirement; good response with dilaudid PO -Due to concern for possible neurological involvement, started on steroids -Very difficult to place Aquino catheter initially due to noted significant vaginal atrophy and lichen sclerosus; placed 12 F -bowel regimen -strict fall precautions -Neurosurgery consult by Dr. Barajas appreciated; back brace recommended, outpa tient follow-up -PT/OT evaluations appreciated -muscle relaxants, lidocaine patch Status: Acute (2) Leukocytosis: -previously normal WBC; part of leukocytosis is likely due to infection (UTI) but much more than would be expected simply from infection -this with noted significant thrombocytosis is concerning for possible malignancy. Patient has a prior albeit remote hx of cervical cancer treated with radiation therapy about 35 yrs ago -No noted lymphadenopathy on CT scan of the chest, abdomen, pelvis; there is mention of small RUL nodules, cystic-appearing lesions in the liver -discussed with Heme/Onc Dr. 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 Qualified Code(s): 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 - Radiation-induced polyneuropathy (5) UTI (urinary tract infection): -From history provided it sounds like patient is prone to UTIs and is on chronic suppressive antibiotic therapy -Urinalysis indicative of infection -urine cx: ESBL E.coli; sensitivity noted -blood cx: 03/31 bottles positive for GPC, repeat set pending -d/c Zosyn, on Primaxin -contact isolation precautions -PICC line placement needed due to need for continued IV antibiotics; not available on weekend, anticipate placement of this on Tuesday Status: Acute Qualifiers: Hematuria presence: without hematuria Urinary tract infection type: acute cystitis Qualified Code(s): N30.00 - Acute cystitis without hematuria (6) HTN (hypertension), benign: -VSS; continue to monitor -on oral antihypertensives Status: Chronic (7) Hyperlipidemia: -on statin Status: Chronic Qualifiers: Hyperlipidemia type: unspecified Qualified Code(s): E78.5 - Hyperlipidemia, unspecified (8) Osteoporosis, disuse: -per history, is quite severe -per patient, failed treatment though sounds like she was treated with bispho sphonates x 2 years with minimal improvement, further details unclear -noted thoracic compression fractures, pubic bone fractures and now L-spine compression fractures -WC bound at baseline -on high dose vitamin D Status: Chronic (9) GERD (gastroesophageal reflux disease): -PPI, particularly with steroid use Status: Chronic Qualifiers: Esophagitis presence: esophagitis presence not specified Qualified Code(s): K21.9 - Gastro-esophageal reflux disease without esophagitis Additional A&P Information -regular diet as tolerated -GI ppx with PPI -DVT ppx with Lovenox -Dispo: home; was living independently with daughter Marichuy (nurse) next door and additional family support as needed. Will need home health due to IV meds administration -Code status: FULL code -ICU admission secondary to high pain requirement, low threshold for decompensation Attestations Medical Necessity Statement*: Patient requires hospitalization for continued treatment of complicated UTI secondary to ESBL E. coli pending PICC line placeme nt. Time Spent in Patient Care: 16 - 35 minutes (>than 50% of time spent in counselling and/or direct pt care on unit) . 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
[2019-09-23] MEDS: oxyCODONE IR 30 mg Tablet 15 MG PO (16:20)
[2019-09-23] MEDS: pantoprazole DR 40 mg Tablet PO (17:42)
[2019-09-23] MEDS: amlodipine 10 mg Tablet PO (20:10)
[2019-09-23] MEDS: atorvastatin 40 mg Tablet 20 MG PO (20:10)
[2019-09-23] MEDS: enoxaparin 40 mg/0.4 mL Syringe SUBCUT (20:11)
[2019-09-23] MEDS: aspirin 81 mg EC Tablet PO (20:11)
[2019-09-24] VITALS (15 sets, daily range): BP systolic 119–184; BP diastolic 61–93; PULSE 66–90; RESP 14–24; TEMP 36.6–37; O2SAT 93–95
[2019-09-24] MEDS: dexamethasone 4 mg/mL INJ IVP ×3 (01:44→12:57)
[2019-09-24] MEDS: oxyCODONE IR 30 mg Tablet 15 MG PO ×2 (02:29→12:54)
[2019-09-24] MEDS: lidocaine 5% Patch 1 PATCH TOPICAL (08:30)
[2019-09-24] MEDS: pantoprazole DR 40 mg Tablet PO (08:30)
[2019-09-24] MEDS: lisinopril 20 mg Tablet 40 MG PO (08:30)
--- NOTE | 2019-09-24 09:13 | XR_ITS ---
WS: [id number] CHEST XRAY TECHNIQUE: Portable chest. CLINICAL INFORMATION: PICC PLACEMENT COMPARISON: None. FINDINGS: Right PICC line tip in the mid to distal SVC. Heart: Cardiomegaly. Lungs: Lungs are clear. No consolidation or pleural effusion. No pneumothorax. Bones: Normal visualized bony structures. XR/XR chest 1V portable [id number] IMPRESSION: Right PICC line with tip in the mid to distal SVC.
--- NOTE | 2019-09-24 09:45 | PC.SOCIAL ---
IMM Updated Updated pt on Pg 2 IMM. Pt verbally understands. Copy provided to pt & left on pt's bedside table. Signed, dated, & timed the copy in pt's chart.
[2019-09-24] MEDS: cyclobenzaprine 10 mg Tablet 5 MG PO (10:11)
--- NOTE | 2019-09-24 10:34 | P.DS_ITS ---
Discharge Providers Date of Admission: 09/19/19 18:17 Date of Discharge: September 24, 2019 Attending Provider at Admission: Mary Gonzalez MD Attending Provider at Discharge: En Hendricks Primary Care Provider: Dennis Miranda MD Diagnoses at Discharge Discharge Diagnosis (1) Burst fracture of thoracic vertebra: Status: Acute Problem details: Follow up with Dr Barajas in office. Discuss whether MRI is needed. (2) Burst fracture of lumbar vertebra: Status: Acute (3) Stenosis, spinal, lumbar: Status: Acute (4) Compression fracture: Status: Acute Problem details: chronic thoracic spine (5) Osteoporosis, disuse: Status: Chronic (6) Thrombocytosis: Status: Acute (7) Leukocytosis: Status: Acute Problem details: High. Concern for hematologic malignancy. Discuss whether MRI spine would be beneficial. 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 Qualified Code(s): G62.82 - Radiation-induced polyneuropathy (9) GERD (gastroesophageal reflux disease): Status: Chronic Qualifiers: Esophagitis presence: esophagitis presence not specified Qualified Code(s): K21.9 - Gastro-esophageal reflux disease without esophagitis (10) Hyperlipidemia: Status: Chronic Qualifiers: Hyperlipidemia type: unspecified Qualified Code(s): E78.5 - Hyperlipidemia, unspecified (11) HTN (hypertension), benign: Status: Chronic (12) UTI (urinary tract infection): Status: Acute Problem details: ESBL E coli Qualifiers: Urinary tract infection type: acute cystitis Hematuria presence: without hematuria Qualified Code(s): N30.00 - Acute cystitis without hematuria Reason for Visit Reason for Visit: BACK PAIN Hospital Course Hospital Course: Very pleasant 69-year-old lady, with history of osteoporosis, HTN, chronic back pain, wheelchair-bound at baseline, GERD, HLD, was admitted due to worsening of back pain over the week prior, during admission with findings of compression fractures of T7, T8, T9, T12 with chronic appearance, as well as acute 20% fracture of T12 with slight retropulsion and burst fracture, 50%, of L3. With noted spinal stenosis. Due to urinary and bowel complaints was started on IV steroid. Was assessed by neurosurgery. No acute surgical procedure was deemed necessary at this time. Her condition has gradually improved, and she today states she is closer to her baseline, with persistent pain, although she deals with this on a long-term basis. MRI was initially considered, however, so far not obtained, and per discussion with neurosurgery may be considered on outpatient side, perhaps if deemed necessary from hematology perspective. Although she is not keen on getting the study and definitely does not want it done in the hospital. She will be seeing hematology due to persistently elevated white blood cell counts as well as platelet levels. During hospitalization she was noted to have urinary tract infection for which she has received treatment with IV antibiotics, and is discharged to complete the course with Primaxin due to ESBL E. coli. Still, due to degree of elevation of leukocytosis, as well as with rare peripheral blasts noted on peripheral smear, concern is for possible underlying hematologic malignancy. Due to this she will be seeing Dr. Brown's office will be expecting her. Due to severe osteoporosis, decrease in mobility, as well as acute and chronic compression fractures, spinal stenosis, she would benefit from ongoing home health care, as well as hospital bed and chair lift are ordered for her. She overall is feeling better, and requests to return home today. All her questions were answered to her satisfaction. Physical Exam Const: COMMON NORMALS: no acute distress and patient oriented x3 GENERAL APPEARANCE: frail appearing HENMT: COMMON NORMALS: oropharynx normal Neck/C-Spine: COMMON NORMALS: no JVD Resp: COMMON NORMALS: normal respiratory effort and clear to auscultation bilaterally AUSCULTATION: clear to auscultation bilaterally Cardio: COMMON NORMALS: no JVD, regular rhythm, S1 normal heart sound present, S2 normal heart sound present and No murmurs present (Cardio) RHYTHM: regular rhythm HEART SOUNDS: S1 normal heart sound present and S2 normal heart sound present GI: COMMON NORMALS: Normal to inspection, nondistended, normoactive bowel sounds present, Soft to palpation and non-tender PALPATION: Yes Soft to palpation Back/Pelvis: OTHER: Back pain. Extremity: COMMON NORMALS: no joint enlargement and no pedal edema Neuro: COMMON NORMALS: patient oriented x3 and moves all extremities Skin: COMMON NORMALS: no rashes or lesions noted GENERAL SKIN EXAM: no rashes or lesions noted Urinary Catheter Management^: Aquino: Cath Placed During This Visit: yes Reason for Continuing Indwelling Catheter: Accurate Measurement of Urinary Output in Critically Ill Patients Urinary Catheter Date of Insertion: 09/19/19 Urinary Catheter Time of Insertion: 22:45 Discharge Data Data Completed and Pending: Completed Studies During Hospitalization Category Date Time Status CT chest abd pel w con* Urgent Cat Scan 09/19/19 15:[address] lumbar spine w o con* [id number] Urgen t Cat Scan 09/19/19 12:23 Completed XR chest 1V shantanu ble [id number] Stat Exams 09/24/19 09:13 Completed Pending at discharge Category Date Time Status Blood Culture Sta t Lab 09/19/19 20:20 Results Blood Culture Sta t Lab 09/22/19 21:16 Results Vitals: Last Vital Signs Temp 98.2 F 09/24/19 08:00 Pulse 81 09/24/19 08:00 Resp 22 H 09/24/19 10:11 BP 139/70 09/24/19 08:00 Pulse Ox 95 09/24/19 08:00 Discharge Plan Discharge Patient Disposition: Home Health Service Condition: Stable Prescriptions: New lidocaine [Lidoderm] 5 % Adhesive Patch,Medicated 1 patch topical O12O12 Qty: 14 RF: 0 methylprednisolone [Medrol (Kai)] 4 mg tablets,dose pack See Rx Instructions .ROUTE .COMPLEX Qty: 21 RF: 0 sennosides-docusate sodium 8.6-50 mg Tablet 2 tab PO BID PRN (Reason: Constipation) Qty: 60 RF: 0 Continued simvastatin 40 mg tablet 40 mg PO DAILY RF: 0 omeprazole 20 mg capsule,delayed release(DR/EC) 20 mg PO DAILY RF: 0 nitroglycerin [Nitrostat] 0.4 mg tablet, sublingual 0.4 mg SUBLINGUAL Q5M PRN (Reason: Chest Pain) RF: 0 aspirin [Adult Aspirin Regimen] 81 mg tablet,delayed release (DR/EC) 81 mg PO DAILY RF: 0 oxycodone 15 mg tablet 15 mg PO TID PRN (Reason: pain) 30 Days Qty: 90 RF: 0 tizanidine 4 mg capsule 4 - 8 mg PO BID PRN (Reason: muscle spasticity) Qty: 60 RF: 0 amlodipine 10 mg tablet 10 mg PO DAILY Qty: 90 RF: 3 lisinopril 40 mg tablet 40 mg PO DAILY Qty: 30 RF: 5 Aleve 220 mg Tablet See Rx Instructions .ROUTE .COMPLEX RF: 0 Visine Totality 0.05 %-0.25 %- 1 %-0.36 % Drops See Rx Instructions .ROUTE .COMPLEX RF: 0 Imodium A-D See Rx Instructions .ROUTE .COMPLEX RF: 0 oxcarbazepine 600 mg tablet 600 mg PO BEDTIME RF: 0 Vitamin D2 1,250 mcg (50,000 unit) capsule 1,250 mcg PO Q7D RF: 0 Held Keflex 500 mg Capsule 500 mg PO DAILY RF: 0 Hold Instructions: Resume on 10/04/19. Discharge Orders: Discharge Order (Routine); Ordered 09/24/19 Ordered By: En Hurd Ambulatory Orders: XR lumbar spine 2-3V* [id number] (Routine) Timeframe: 2 Weeks Facility: [facility] - Location: [facility] Ordered By: En Hendricks XR thoracic spine 3V* [id number] (Routine) Timeframe: 2 Weeks Facility: [facility] - Location: [facility] Ordered By: En Hendricks DME: Hospital Bed (Order) Location: None Selected Ordered By: En Hendricks DME: Miscellaneous (Order) Location: None Selected Ordered By: En Hendricks Referrals: [facility] [Other] Dennis Miranda MD [Primary Care Provider] - 4-7 days (ESBL E. coli UTI. Leukocytosis, thrombocytosis, concern for possible hematologic malignancy. Multiple spinal fractures. Severe osteoporosis. Severe peripheral neuropathy.) Michael Barajas MD [Physician] - 2 weeks (After AP and lateral thoracic and lumbar spine x-rays.) Dewayne Brown MD [Hospitalist] - 4-7 days (For further workup for marked leukocytosis and thrombocytosis. ) Discharge Diet: Usual diet and Cardiac Discharge Activity: Limit activity as instructed and As per PT/OT instructions Activity Restrictions/Additional Instructions: IV antibiotics as instructed via PICC line. PICC line to be removed after course is complete. If you experience any worsening of pain, any difficulty with urination or defecation, any new/worsening numbness, or weakness in any extremities, any fevers, or any other abnormal symptoms, please seek medical attention without delay. Please follow up with Dr. Brown in office regarding very high white blood cell counts and platelet counts. Please make sure to follow-up with Dr. Barajas in office after thoracic and lumbar spine x-rays. Please discuss with him and Dr. Brown as well regarding need for MRI of your back. Please maintain strict fall precautions at home. Please continue to monitor blood pressures at home 3 times daily, record values to bring to your appointment. 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
--- NOTE | 2019-09-24 14:16 | PC.SOCIAL ---
Called to initiate the PA by phone in hopes this would expedite request. Expedited request can take up to 24 hours. Submitted all information including Diagnosis and tried/ failed therapies given alone. Added pain only controlled with addition of Lidocaine patch. Discussed with Dr Hendricks prior to initiation of request. Will monitor for fax. Updated Manuela at employee pharmacy. We will follow. Updated nurse Daily also.
--- NOTE | 2019-09-24 17:16 | PC.NURSE ---
patient was taken out to meet her ride home but the van was not wheelchair accessible. patient can not lift up to get to the sit. new van arranged expected in an hour.
--- NOTE | 2019-09-25 08:50 | PC.SOCIAL ---
updated daughter and Lillian at pharmacy that insurance did not approve the Lidocaine because dx did not include Diabetic Neuropathy.
== END 2019-09-24 19:28 | disposition home health service (06) | DRG 543 ==
LOC: ER 17:57 → ICU 18:38
PROVIDERS: Nurse Practitioner Family; Admitting Provider Family Medicine; PCP Internal Medicine; Visit Provider Internal Medicine
DX: M48.56XA Collapsed vertebra, not elsewhere classified, lumbar region, initial encounter for fracture (principal); N30.00 Acute cystitis without hematuria; Z16.12 Extended spectrum beta lactamase (ESBL) resistance; M48.54XA Collapsed vertebra, not elsewhere classified, thoracic region, initial encounter for fracture; D47.3 Essential (hemorrhagic) thrombocythemia; I10 Essential (primary) hypertension; E78.5 Hyperlipidemia, unspecified; K21.9 Gastro-esophageal reflux disease without esophagitis; M48.061 Spinal stenosis, lumbar region without neurogenic claudication; B96.20 Unspecified Escherichia coli [E. coli] as the cause of diseases classified elsewhere; G89.29 Other chronic pain; M54.9 Dorsalgia, unspecified; Z99.3 Dependence on wheelchair; Z79.82 Long term (current) use of aspirin; G62.82 Radiation-induced polyneuropathy; B18.2 Chronic viral hepatitis C; Z85.41 Personal history of malignant neoplasm of cervix uteri; Z92.3 Personal history of irradiation
CPT/HCPCS: 12345; 36415; 36569; 51702; 71045; 71260; 72131; 74177; 80053; 80500; 81001; 83615; 83735; 85007; 85025; 85610; 86140; 87040; 87077; 87086; 87186; 96372; 96375; 97110; 97163; 97166; 97530; 97535; 99281; C9113; J0696; J0743; J1100; J1170; J1650; J1885; J2270; J2405; J2543; J7050; L0456; Q9967

== ENCOUNTER 2019-10-01 10:32 | Outpatient (CLI) | payer MEDICARE, MEDICAID, SELFPAY ==
[2019-10-01 12:10] LABS: Basophils # 2.1 10^3/uL (0.0-0.1); Basophils % 4.5 %; Eosinophils # 2.2 10^3/uL (0.0-0.8); Eosinophils % 4.6 %; Hematocrit 46.4 % (37.0-47.0); Hemoglobin 15.1 g/dL (11.5-15.3); Lymphocytes # 2.9 10^3/uL (0.8-4.8); Lymphocytes % 6.2 %; Mean Corpuscular HGB Conc 32.5 g/dL (30.0-36.0); Mean Corpuscular Volume 89.1 fL (81-99); Monocytes # 2.1 10^3/uL (0.2-0.9); Monocytes % 4.4 %; Neutrophils # 25.1 10^3/uL (1.8-7.7); Nucleated Red Blood Cells % 0 %; Platelet Count 720 10^3/cmm (130-400); Red Blood Count 5.21 10^6/uL (4.1-5.3); Red Cell Distribution Width 15.4 % (12.1-15.1)
[2019-10-01 12:49] LABS: Slide Review Slide Review Perform
[2019-10-01 12:50] LABS: Neutrophils % 80.3 %
[2019-10-01 12:51] LABS: White Blood Count 46.8 10^3/uL (4.0-10.0)
[2019-10-01 12:52] LABS: LAB Peripheral Smear Sent for Review
[2019-10-01 13:26] LABS: Alanine Aminotransferase 19 U/L (0-33); Albumin Level 3.9 g/dL (3.5-5.2); Alkaline Phosphatase 136 IU/L (35-105); Anion Gap 17.8 (5-19); Blood Urea Nitrogen 9 mg/dL (8-23); Carbon Dioxide 26 mmol/L (22-29); Chloride 98 mmol/L (98-107); Globulin 2.7 g/dL (1.3-4.6); Glomerular Filtration Rate 221.2 mL/min (90-130); Glucose 81 mg/dL (65-115); Osmolality Calculated 281 mOsm/kg (285-295); Potassium 3.8 mmol/L (3.5-5.1); Sodium 138 mmol/L (136-145); Total Bilirubin 0.4 mg/dL (0.15-1.2); Total Protein 6.6 g/dL (6.6-8.7); Vitamin B12 794 pg/mL (232-1245)
[2019-10-01 13:31] LABS: Aspartate Amino Transferase 23 U/L (0-32); Lactate Dehydrogenase 474 U/L (135-214)
--- NOTE | 2019-10-01 18:54 | ONC CON_ITS ---
Dr. Brown New Patient Note Patient: Mary Cristobal Unit #: [id number]: 1950 Dicatated By: Dewayne Brown M.D.Date of Visit: Oct 01, 2019 Onc MED New Patient/Consult Referring Physician: Dr. En Hendricks M.D. Chief Complaint: Leukocytosis and thrombocytosis. History of Present Illness: This is a 69 year-old woman with suspected chronic myeloid leukemia, presenting with leukocytosis and thrombocytosis. She has longstanding osteoporosis with associated vertebral compression fractures, complicated by degenerative disease of the spine and lumbar stenosis. She has had chronic back pain and limited mobility. She has additional history of having undergone radiation for cervical cancer 37 years ago. 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 Grey. On 09/19/2019 she was admitted to the hospital with increased back pain in association with an acute vertebral fracture at T12. Lumbar spine CT confirmed a mild burst fracture at T12 with 4.4 mm retropulsion and mild contact on the ventral thecal sac. There was a remote appearing 50% burst fracture of L3 resulting in moderate central and bilateral subarticular recess stenosis. There was moderate to severe central, foraminal, and subarticular recess stenosis at L3-4, and there was moderate to severe central and bilateral subarticular recess stenosis and mild left foraminal stenosis at L4-5. Her initial CBC showed normal hemoglobin at 13.6 g with hematocrit 41.7%. The white blood cell count was significantly elevated at 44,200 and the platelet count also was significantly elevated at 1,144,000. The automated differential included 74. % neutrophils, 4% lymphocytes, 1% monocytes, less than 1% eosinophils, and 1% basophils. Her repeat CBC the following day showed similar findings with hemoglobin 13.8 g, white blood cell count 59,200, and platelet count 1,090,000. The manual differential included 66% segmented neutrophils, 23% band neutrophils, 4% myelocytes, 2% metamyelocytes, 4% lymphocytes, and 1% monocytes. Her comprehensive metabolic profile was unremarkable except for slightly elevated alkaline phosphatase. During the hospitalization she was given antibiotic therapy for urinary tract infection. She otherwise had symptomatic management. She was discharged home on 09/24/2019. She is seen now for further evaluation of the elevated blood counts. She has very limited mobility due to her chronic back pain. She is able to get up and down from the chair and she gets to the bathroom, but only with assistance. She has been wearing a back brace since the hospitalization. Her appetite is not good. Weight is down a little. She has not had fever. She has had some night sweating, but that she attributes to having recently been on steroid therapy. She is just finishing her course of treatment. She has some shortness of breath with effort. She does not have cough and she does not complain of chest pain. She has had some nausea recently, but that she also attributes to medication. Her bowels fluctuate between diarrhea and constipation. She has noticed that her urine volume has been down, but her bladder function has been okay. In addition to the back pain, she also has pain in both legs, but that is chronic. She has numbness/tingling in her legs and feet. Past Medical History: Her medical history includes degenerative disease of the spine with lumbar stenosis, gastroesophageal reflux disease, history of cervical cancer treated with radiation in 1983, history of recurrent urinary tract infections, hyperlipidemia, hypertension, multiple vertebral compression fractures, osteoporosis, peripheral neuropathy, and radiation plexitis. Past Surgical History: Her surgical/procedural history includes left ankle repair and left total knee arthroplasty. Medications: amLODIPine Besylate 1 Tablet (of 10 mg) Oral daily, Aspirin 1 Tablet (of 81 mg) Tablet, enteric coated Oral daily, Lisinopril 1 Tablet (of 40 mg) Oral daily, Omeprazole 1 Capsule (of 20 mg) Capsule Delayed Release Oral daily, OXcarbazepine 1 Tablet (of 600 mg) Oral at bedtime, oxyCODONE HCl 1 Tablet (of 15 mg) Oral q 8 hours PRN, Simvastatin 1 Tablet (of 40 mg) Oral daily, tiZANidine HCl 1 - 2 Tablet (of 4 mg) Oral b.i.d. PRN, Vitamin D2 1 Tablet (of 50 mcg ) Oral q 7 days Allergies: Demerol and Morphine Sulfate. Social History: Ms. Cristobal is . She is retired. She is a non-smoker. She does not drink alcohol. Family History: Father with heart disease at age 71. There is history of diabetes affecting her mother and all 5 siblings. Her mother with heart disease at age 68 and 2 brothers also from heart disease. Two other brothers and a sister are still living. Review Of Symptoms: Constitutional - Her energy is low. She is mainly sedentary at home. She has limited activity due to back pain. Her appetite is poor but she is able to eat. She states that her weight is stable. No fevers. She has been having night sweats, which she attributes to taking steriods. ECOG score is 3, Eyes - She reports a vision change but believes this is related to her new glasses, ENMT - No hearing loss or tinnitus. No sinus congestion/drainage. No mouth sores. No sore throat or difficulty swallowing, Hematologic/Lymphatic - No abnormal bruising or bleeding, Respiratory - She gets short of breath with exertion. No cough. No pleuritic pain or hemoptysis, Cardiovascular - No angina pain. No palpitations, Gastrointestinal - No nausea or vomiting. No heartburn or acid reflux. Her bowels fluctuate between diarrhea and constipation. No blood in the stool or black stools, Genitourinary (F) - No dysuria or hematuria. No urinary frequency. No urgency or incontinence. Her urinary output has decreased, Musculoskeletal - She has chronic back pain. She also has pain in her legs, Integumentary - No skin rash, Neurologic - No headache or dizziness. She has numbness and tingling in her legs and feet. No other focal neurologic symptoms, Psychiatric - No anxiety or depression. No insomnia. Vital Signs: Performed on Oct 01, 2019 11:05: 3, 21.29, 1.76 sq.m, 68.00 in, 95 % (LOW), 99 /min, 22 /min, 127/76 mm(hg), 99.2 F (HIGH), and 140.0 lbs (HIGH). Physical Examination: Constitutional - She has very limited mobility. She does not appear acutely ill, Eyes - Sclerae nonicteric. Conjunctivae clear, ENMT - No lesions noted in the oral cavity, Neck - No mass or thyromegaly, Hematologic/Lymphatic - No cervical, clavicular, or axillary adenopathy, Respiratory - Lungs are clear with good air movement bilaterally, Cardiovascular - Heart rhythm is regular. There is no murmur, gallop, or rub noted, Abdomen - Soft and non-tender. Liver and spleen are not enlarged. There is no abdominal mass or ascites noted and there is no inguinal adenopathy, Extremities - No edema, Integumentary - No rashes. No suspicious skin lesions noted, Neurologic - She has very limited movement of her lower extremites. Impression: 1. Patient with significant leukocytosis and thrombocytosis in association with normal hemoglobin/hematocrit levels. The manual differential showed predominantly granulocytes, but with a significant left shift. The findings are consistent with a myeloproliferative disorder, most likely chronic myeloid leukemia. 2. She has severe osteoporosis with multiple vertebral compression fractures, including a recent burst type fracture at T12. 3. She has evidence of degenerative disease in the lumbar spine and previous vertebral compression compression fracture at L3 with associated lumbar central canal stenosis. 4. She underwent radiation for cervical cancer in 1983, and she was previously diagnosed with radiation plexitis. Her other and medical illnesses include: 5. Hypertension. 6. Hyperlipidemia. 7. GERD. 8. Peripheral neuropathy. 9. She has a history of recurrent urinary tract infections. Plan: The laboratory findings and clinical implications were reviewed with the patient and her daughter. While some component of the elevated blood counts may be reactive in association with acute illness, the findings are clearly consistent with a myeloproliferative disorder, most likely chronic myeloid leukemia. She will have additional laboratory studies today to include CBC, comprehensive metabolic profile, LDH level, B12 level, and a FISH study for BCR/ABL. I also will review the blood smear. She will have further evaluation as indicated. Signed By: Dewayne Brown M.D. <<Signature on File>>
== END 2019-10-01 10:33 | disposition home or self-care (01) ==
LOC: ONCMED 10:42
PROVIDERS: PCP Internal Medicine; Visit Provider Internal Medicine Medical Oncology
DX: D72.829 Elevated white blood cell count, unspecified (principal); D51.9 Vitamin B12 deficiency anemia, unspecified; K21.9 Gastro-esophageal reflux disease without esophagitis; E78.5 Hyperlipidemia, unspecified; I10 Essential (primary) hypertension; M81.0 Age-related osteoporosis without current pathological fracture; G62.9 Polyneuropathy, unspecified; G54.0 Brachial plexus disorders; M47.9 Spondylosis, unspecified; M48.061 Spinal stenosis, lumbar region without neurogenic claudication
CPT/HCPCS: 36415; 36592; 80053; 82607; 83615; 84550; 85025; 99205

== ENCOUNTER 2019-10-02 13:55 | Outpatient (CLI) | payer MEDICARE, MEDICAID, SELFPAY ==
[2019-10-10 15:15] LABS: Miscellaneous Test See Scanned Lab Rpt
== END 2019-10-02 13:56 | disposition home or self-care (01) ==
LOC: ONCMED 15:24
PROVIDERS: PCP Internal Medicine; Visit Provider Internal Medicine Medical Oncology
DX: D72.829 Elevated white blood cell count, unspecified (principal); C92.10 Chronic myeloid leukemia, BCR/ABL-positive, not having achieved remission
CPT/HCPCS: 88374

== ENCOUNTER 2019-10-18 10:11 | Day surgery (SDC) | payer MEDICARE, MEDICAID, SELFPAY ==
[2019-10-16 13:17] VITALS: BMI 22.0
--- NOTE | 2019-10-18 10:30 | ECG_ITS ---
[facility] Test Date: 2019-10-18 Pat Name: Mary Cristobal Department: Room: Gender: Female Multimedia Producer: : 1950 Requested By: Rosanna Granger Order Number: [id number] Ashwin MD: Georges Price M.D. Measurements Intervals [place] Rate: 95 P: 35 WI: 137 QRS: 1 QRSD: 99 T: 18 QT: 360 QTc: 453 Interpretive Statements SINUS RHYTHM POSSIBLE ANTERIOR MYOCARDIAL INFARCTION [30 ms Q WAVE IN V3/V4, OR R < 0.2 mV IN V4], OF INDETERMINATE AGE INTERPRETATION BASED ON A DEFAULT AGE OF 40 YEARS No previous ECG available for comparison Electronically Signed On 10-18-2019 17:07:14 CDT by Georges Price M.D. [id number] f
[2019-10-18 10:45] VITALS: BP 147/77; PULSE 102; RESP 18; TEMP 36.7; O2SAT 98
[2019-10-18] MEDS: sodium chloride 0.9% 1,000 ML 30 ML IV (10:45)
--- NOTE | 2019-10-18 10:51 | ANES.PREANE2 ---
Pre-Anesthetic Assessment Pre-Anesthetic Assessment: Height/Weight: Height 1.73 m Weight 65.771 kg Temp Pulse Resp BP Pulse Ox 98.0 F 102 H 18 147/77 98 10/18/19 10:45 10/18/19 10:45 10/18/19 10:45 10/18/19 10:45 10/18/19 10:45 Proposed Procedure: Operation Date: 10/18/19 11:00 Proposed Procedures p Bone Marrow Biospy With Aspiration(Not Applicable) - Rosanna Granger MD Was Beta Kelsey taken within 24 hours: N/A Last intake: Intake Last Liquid Date 10/17/19 Last Liquid Time 20:00 Last Solid Date 10/17/19 Last Solid Time 20:00 Social: Social History: No alcohol and No tobacco Exam: Pre-Anes Outpt Exam: alert, oriented x 3, clear to auscultation bilaterally and regular rate & rhythm Airway: Submandibular: WNL Cervical ROM: WNL MP: 2 Dentition: False Pulmonary: Pulmonary: SOB CV/HEM: CV/HEM: Angina (Unstable) and HTN Comments: Takes NTG on occasion for CP. Disscussed with DR Qureshi : : None reported Hepatic: Hepatic: None reported GI: GI: GERD Metabolic: Metabolic: None reported Musc/skel: Musc/skel: Lower Back Pain, OA/DJD and Weakness Neuropsych: Neuropsych: None reported Anesthetic Plan: ASA status: 4 Anesthesia: Anesthesia Evaluation and MAC Risk of > 500 ml blood loss (7ml/kg in children): No PFSH Anesthesia PFSH: Medical History Burst fracture of lumbar vertebra Cervical cancer s/p radiation treatment (>35 yrs ago) Chronic hepatitis C Compression fracture chronic thoracic spine GERD (gastroesophageal reflux disease) HTN (hypertension), benign Hyperlipidemia Incarcerated hiatal hernia 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
[2019-10-18 10:59] LABS: Basophils # 1.6 10^3/uL (0.0-0.1); Eosinophils # 0.2 10^3/uL (0.0-0.8); Eosinophils % 0.6 %; Hematocrit 47.1 % (37.0-47.0); Hemoglobin 15.5 g/dL (11.5-15.3); Lymphocytes # 2.6 10^3/uL (0.8-4.8); Lymphocytes % 7.8 %; Mean Corpuscular HGB Conc 32.9 g/dL (30.0-36.0); Mean Corpuscular Hemoglobin 29.5 pg (28.0-34.0); Mean Corpuscular Volume 89.7 fL (81-99); Mean Platelet Volume 10.4 fL (7.4-10.4); Monocytes # 1.2 10^3/uL (0.2-0.9); Monocytes % 3.7 %; Neutrophils # 23.18 10^3/uL (1.8-7.7); Neutrophils % 70.5 %; Nucleated Red Blood Cells % 0 %; Platelet Count 949 10^3/cmm (130-400); Red Blood Count 5.25 10^6/uL (4.1-5.3); Red Cell Distribution Width 15.2 % (12.1-15.1)
[2019-10-18 11:18] LABS: White Blood Count 32.9 10^3/uL (4.0-10.0)
[2019-10-18 11:19] LABS: Slide Review Slide Review Perform
[2019-10-18 11:41] VITALS: BP 114/63; PULSE 92; RESP 16; TEMP 36.8; O2SAT 96
--- NOTE | 2019-10-18 11:47 | PM.BMB ---
Bone Marrow Biopsy Bone Marrow Biopsy: I was consulted by [] office regarding bone marrow biopsy on Mary Cristobal []. Briefly, the patient is a [69] year old [female] with [CML]. In the Outpatient Services Department, with nursing staff and laboratory technologists in attendance, the procedure was discussed with the patient. Appropriate consent form had been signed. Appropriate alternatives, benefits and risks of procedure were discussed with the patient and she was pre-operatively assessed with a history and physical by myself and cleared for the biopsy procedure. The patient did request IV sedation and that was provided by the Anesthesia Department. And under aseptic condition right posterior iliac area was cleaned and prepped, local anesthesia was given, about 15 cc of bone marrow aspirate and core biopsy was obtained, patient tolerated procedure well, specimen was sent for routine histo path, cytogenetics. Thank you for allowing me to participate in this patient's care and diagnosis. Coding Level of Care Code Acute Bottoming Machine Operator for Kirk Dennis
[2019-10-18 11:57] VITALS: BP 120/85; PULSE 95; RESP 18; O2SAT 94
[2019-10-25 13:04] LABS: Miscellaneous Test See Scanned Lab Rpt
[2019-10-25 14:25] LABS: P190 BCR ALB1 Not Detected; P210 BCR ALB1 Detected; Prior Results Not Given
[2019-11-13 11:03] LABS: Miscellaneous Test See Scanned Lab Rpt
== END 2019-10-18 18:00 | disposition home or self-care (01) ==
PROVIDERS: Internal Medicine Medical Oncology; PCP Internal Medicine; Visit Provider Internal Medicine Hematology & Oncology
PROC: 07DT3ZX Extraction of Bone Marrow, Percutaneous Approach, Diagnostic (ICD-10-PCS; CPT 38222; principal; 2019-10-18 11:00)
DX: C92.10 Chronic myeloid leukemia, BCR/ABL-positive, not having achieved remission (principal); I10 Essential (primary) hypertension; M19.90 Unspecified osteoarthritis, unspecified site; Z85.41 Personal history of malignant neoplasm of cervix uteri; E78.5 Hyperlipidemia, unspecified; M81.0 Age-related osteoporosis without current pathological fracture; Z99.3 Dependence on wheelchair
CPT/HCPCS: 12345; 36415; 38222; 81206; 85025; 85097; 88184; 88185; 88237; 88264; 88271; 88275; 88305; 88311; 88313; 93005; J2704; J7030

== ENCOUNTER 2019-10-22 09:05 | Outpatient (CLI) | payer MEDICARE, MEDICAID, SELFPAY ==
[2019-10-22 11:35] LABS: Hematocrit 47.3 % (37.0-47.0); Hemoglobin 14.7 g/dL (11.5-15.3); Mean Corpuscular HGB Conc 31.1 g/dL (30.0-36.0); Mean Corpuscular Hemoglobin 28.7 pg (28.0-34.0); Mean Corpuscular Volume 92.4 fL (81-99); Mean Platelet Volume 11.1 fL (7.4-10.4); Nucleated Red Blood Cells % 0 %; Red Blood Count 5.12 10^6/uL (4.1-5.3); Red Cell Distribution Width 15.4 % (12.1-15.1)
[2019-10-22 11:52] LABS: Alanine Aminotransferase 14 U/L (0-33); Albumin Level 3.9 g/dL (3.5-5.2); Alkaline Phosphatase 111 IU/L (35-105); Anion Gap 14.2 (5-19); Aspartate Amino Transferase 20 U/L (0-32); Blood Urea Nitrogen 10 mg/dL (8-23); Calcium 8.8 mg/dL (8.5-10.5); Carbon Dioxide 27 mmol/L (22-29); Chloride 98 mmol/L (98-107); Globulin 2.7 g/dL (1.3-4.6); Glomerular Filtration Rate 158.7 mL/min (90-130); Glucose 74 mg/dL (65-115); Lactate Dehydrogenase 324 U/L (135-214); Osmolality Calculated 275 mOsm/kg (285-295); Potassium 4.2 mmol/L (3.5-5.1); Sodium 135 mmol/L (136-145); Total Bilirubin 0.3 mg/dL (0.15-1.2); Total Protein 6.6 g/dL (6.6-8.7)
[2019-10-22 12:10] LABS: Platelet Count 1023 10^3/cmm (130-400)
[2019-10-22 12:11] LABS: Slide Review Slide Review Perform
[2019-10-22 12:12] LABS: White Blood Count 35.2 10^3/uL (4.0-10.0)
[2019-10-22 12:29] LABS: Absolute Eosinophils 0.7 10^3/cmm (0.0-0.7); Absolute Segmented Neutrophil 25.3 10/cmm (1.6-7.1); Band Neutrophils Absolute 1.1 10^3/cmm (0.0-1.2); Basophils Absolute 1.8 10^3/cmm (0.0-0.2); Eosinophils 2 %; Lymphocytes 5 %; Monocytes Absolute 0.4 10^3/cmm (0.1-0.6); Segmented Neutrophils 72 %; Total Cells Counted 100 (0-100)
[2019-10-22 12:30] LABS: Absolute Neutrophil 26.4 10^3/cmm (1.4-6.5); Anisocytosis 1+; Giant Platelets 1+; Platelet Estimate Increased (Normal); Poikilocytosis 1+; Smudge Cells Trace
--- NOTE | 2019-10-26 08:53 | ONC FU_ITS ---
[facility] Patient Note Patient: Mary Cristobal Unit #: [id number]: 1950 Dictated By: Yuri SpringerDate of Visit: Oct 22, 2019 Onc MED Follow-Up/Prog Note Chief Complaint: Leukocytosis and thrombocytosis. History of Present Illness: Ms Cristobal is a 69 year-old woman with suspected chronic myeloid leukemia, presenting with leukocytosis and thrombocytosis. She has longstanding osteoporosis with associated vertebral compression fractures, complicated by degenerative disease of the spine and lumbar stenosis. She has had chronic back pain and limited mobility. She has additional history of having undergone radiation for cervical cancer 37 years ago. 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 Grey. On 09/19/2019 she was admitted to the hospital with increased back pain in association with an acute vertebral fracture at T12. Lumbar spine CT confirmed a mild burst fracture at T12 with 4.4 mm retropulsion and mild contact on the ventral thecal sac. There was a remote appearing 50% burst fracture of L3 resulting in moderate central and bilateral subarticular recess stenosis. There was moderate to severe central, foraminal, and subarticular recess stenosis at L3-4, and there was moderate to severe central and bilateral subarticular recess stenosis and mild left foraminal stenosis at L4-5. Her initial CBC showed normal hemoglobin at 13.6 g with hematocrit 41.7%. The white blood cell count was significantly elevated at 44,200 and the platelet count also was significantly elevated at 1,144,000. The automated differential included 74. % neutrophils, 4% lymphocytes, 1% monocytes, less than 1% eosinophils, and 1% basophils. Her repeat CBC the following day showed similar findings with hemoglobin 13.8 g, white blood cell count 59,200, and platelet count 1,090,000. The manual differential included 66% segmented neutrophils, 23% band neutrophils, 4% myelocytes, 2% metamyelocytes, 4% lymphocytes, and 1% monocytes. Her comprehensive metabolic profile was unremarkable except for slightly elevated alkaline phosphatase. During the hospitalization she was given antibiotic therapy for urinary tract infection. She otherwise had symptomatic management. She was discharged home on 09/24/2019. Ms Cristobal was seen by Dr Brown on October 01, 2019. He discussed with Ms. Cristobal and her daughter that she most likely had chronic myeloid leukemia. Additional studies for BCR/ABL were requested. We did receive notification from [facility] and [facility] that she was positive for the BCR/ABL1 fusion. With that additional information Dr. Brown has recommended that she start nilotinib. Mrs. Cristobal is here today for follow-up. She has received the nilotinib via the specialty pharmacy. She has no new concerns today. She denies any pain. She denies any fever or chills or any signs of infection for at least the last 72 hours. She denies any new shortness of breath or orthopnea. She has had no cough, she denies chest discomfort or palpitations. She denies any nausea or vomiting at present time. She states her bowels are normal for her her bladder is normal as well. She denies any lower extremity edema. She has had no neuropathy symptoms that have worsened since her last visit. Her ECOG is 1. Past Medical History: Degenerative disease of the spine with lumbar stenosis Gastroesophageal reflux disease History of cervical cancer treated with radiation in 1983 History of recurrent urinary tract infections Hyperlipidemia Hypertension Multiple vertebral compression fractures Osteoporosis Peripheral neuropathy Radiation plexitis Past Surgical History: Left ankle repair Left total knee arthroplasty Allergies: Demerol and Morphine Sulfate. Medications: amLODIPine Besylate 1 Tablet (of 10 mg) Oral daily Aspirin 1 Tablet (of 81 mg) Tablet, enteric coated Oral daily Lisinopril 1 Tablet (of 40 mg) Oral daily Omeprazole 1 Capsule (of 20 mg) Capsule Delayed Release Oral daily OXcarbazepine 1 Tablet (of 600 mg) Oral at bedtime oxyCODONE HCl 1 Tablet (of 15 mg) Oral q 8 hours PRN Simvastatin 1 Tablet (of 40 mg) Oral daily Tasigna 2 Capsule (of 150 mg) Oral b.i.d. Vitamin D2 1 Tablet (of 50 mcg ) Oral q 7 days Family History: Ms. Cristobal's mother at age 68: congestive heart failure. Ms. Cristobal's father at age 71: stroke. Father with heart disease at age 71. There is history of diabetes affecting her mother and all 5 siblings. Her mother with heart disease at age 68 and 2 brothers also from heart disease. Two other brothers and a sister are still living. Social History: Ms. Cristobal is and she is retired. Ms. Cristobal has never smoked. She has no history of drinking. Ms. Cristobal reports the following support systems: lives with spouse, significant other, family, or friends, lives in own house, supportive family/friends willing to assist with needs, and adequate transportation available for expected visits. Her diet consists of regular meals. She indicates her activity level as: sedentary. She is a non-smoker. She does not drink alcohol. Review Of Symptoms: Constitutional Denies fevers, chills, night sweats, excessive fatigue or weight loss. Allergic/Immunologic No reactions. Eyes Denies significant visual changes. No diplopia. No amaurosis. ENMT Denies changes in hearing, sore throat, mouth sores, difficulty or changes in swallowing ability, and/or sinus drainage. Endocrine No diabetes, thyroid disease or hormone replacement. Denies hot flashes or night sweats. Hematologic/Lymphatic Denies easy bruising or bleeding. The patient denies any tender or palpable lymph nodes. Breasts Respiratory Denies dyspnea on exertion, chest pain, cough or hemoptysis. Denies orthopnea. Cardiovascular Denies anginal chest pain, palpitations or orthopnea. Gastrointestinal Denies nausea, vomiting, diarrhea, GI bleeding, or constipation. Denies change in bowel habits and/or stool color, no heartburn or early satiety. Genitourinary (F) No hematuria, hesitancy, incontinence, vaginal bleeding, discharge or other problems with urination. Had massive UTI about 2 weeks ago . Musculoskeletal Denies joint pain, swelling or redness. No decreased range of motion. Integumentary Denies chronic rashes, inflammation, ulcerations or skin changes. Neurologic Denies headache, blurred vision, and no areas of focal weakness or numbness. Cannot walk due to broken back. Psychiatric Denies insomnia, depression, devyn or mood swings. Vital Signs: Performed on Oct 22, 2019 09:40 Height - 68.00 in Temperature - 98.3 F (LOW) Pulse - 92 /min Respiration - 17 /min BP - 136/70 mm(hg) O2 Sat - 95 % (LOW) Pain - 5,3 - Capable of only limited self-care, confined to bed or chair more than 50% of waking hours. (ECOG) Physical Examination: Constitutional Alert, oriented, no acute distress. Skin pink, warm and dry. Head Normocephalic; atraumatic. Eyes Conjunctivae and sclerae are clear and without icterus. Pupils are reactive and equal. Neck Supple without masses or thyromegaly. No jugular venous distension. Hematologic/Lymphatic No petechiae or purpura. Respiratory Lungs are clear to auscultation without rhonchi or wheezing. Cardiovascular Regular rate and rhythm of heart without murmurs,clicks, gallops or rubs. Back/Spine Non-tender to palpation. Extremities No visible deformities, no cyanosis, clubbing or edema. Musculoskeletal No tenderness or swelling. Integumentary No rashes or lesions. Neurologic No sensory or motor deficits, normal cerebellar function Psychiatric Alert and oriented times three. Coherent speech. Verbalizes understanding of our discussions today. Laboratory:Test performed on Oct 22, 2019 10:20 LDH (Total) 324 U/L Sodium 135 mmol/L Potassium 4.2 mmol/L Chloride 98 mmol/L CO2 27 mmol/L Anion Gap 14.2 BUN 10 mg/dL Creatinine 0.4 mg/dL Cr Clearance (Est) 134.9500 mL/min eGFR 158.7 mL/min Glucose 74 mg/dL Calcium 8.8 mg/dL Protein, Total 6.6 g/dL Albumin 3.9 g/dL Globulin 2.7 g/dL Bilirubin, Total 0.3 mg/dL ALT (SGPT) 14 U/L AST (SGOT) 20 U/L Alkaline Phosphatase 111 IU/L WBC 35.2 10 3/uL Manual Bands % 3.0 % RBC 5.12 10 6/uL HGB 14.7 g/dL Manual Lymphs % 5 % HCT 47.3 % Manual Monos % 1.0 % MCV 92.4 fL MCH 28.7 pg Manual Basos % 5.0 % MCHC 31.1 g/dL Metamyelocytes % 6.0 % RDW 15.4 % Myelocytes % 5.0 % Platelet Count 1023 10 3/cmm MPV 11.1 fL Promyelocytes % 1.0 % Smudge Cells Trace NRBC % 0 % Anisocytosis 1+ CBC Slide Review Slide Review Perform Poikilocytosis 1+ Manual Bands Abs 1.1 10 3/cmm Manual Neutrophils Abs 26.4 10 3/cmm Manual Monocytes Abs 0.4 10 3/cmm Manual Eosinophils Abs 0.7 10 3/cmm Manual Basophils Abs 1.8 10 3/cmm Test performed on Oct 01, 2019 11:50 Uric Acid 3.0 mg/dL Vitamin B12 794 pg/mL Neutrophils 25.1 10 3/uL Lymphocytes 2.9 10 3/uL Monocytes 2.1 10 3/uL Eosinophils 2.2 10 3/uL Basophils 2.1 10 3/uL Neutrophil % 80.3 % Lymphocyte % 6.2 % Monocyte % 4.4 % Eosinophil % 4.6 % Basophils % 4.5 % Impression: 1. Patient with significant leukocytosis and thrombocytosis in association with normal hemoglobin/hematocrit levels. The manual differential showed predominantly granulocytes, but with a significant left shift. The findings are consistent with a myeloproliferative disorder, most likely chronic myeloid leukemia. CML: BCR/ABL positive. 2. She has severe osteoporosis with multiple vertebral compression fractures, including a recent burst type fracture at T12. 3. She has evidence of degenerative disease in the lumbar spine and previous vertebral compression compression fracture at L3 with associated lumbar central canal stenosis. 4. She underwent radiation for cervical cancer in 1983, and she was previously diagnosed with radiation plexitis. Her other and medical illnesses include: 5. Hypertension. 6. Hyperlipidemia. 7. GERD. 8. Peripheral neuropathy. 9. She has a history of recurrent urinary tract infections. The laboratory findings and clinical implications were reviewed with Ms Cristobal and her daughter per Dr Brown on october 02, 2019. While some component of the elevated blood counts may be reactive in association with acute illness, the findings are clearly consistent with a myeloproliferative disorder, most likely chronic myeloid leukemia. Further workup resulted in a positive BCR/ABL1 fusion. With the BCR/ABL1 being positive and her elevated blood counts, it was recommended that she begin a trial of nilotinib. She is here today for education and administration instructions. Plan: 1. Proceed with nilotinib 150 mg 2 capsules twice daily. She will start her first dose on October 23, 2019. 2. We will send in Zofran 4 mg 1 or 2 every 6-8 hours as needed for nausea to [facility] in [place] for as needed use for antiemetic at home. 3. AVOID GRAPEFRUIT PRODUCTS WITH NILOTINIB. 4. I have asked for a CBC CMP and LDH today. Her last labs here were October 01, 2019 which time she had elevated white count of 46.8 her hemoglobin is 15.1 and platelets were 720,000. Potassium was 3.8 creatinine 0.3 LFTs were normal LDH was 474. 5. We will plan to see her back in 2 weeks with CBC CMP LDH. We will plan to check a CBC LDH and BMP in 1 week. I have asked for a UA today as she had a significant urinary tract infection which was in the hospital a few weeks ago and has not had follow-up. 6. The patient and family were informed of chemotherapy plan and specific drugs were discussed. We also discussed how chemotherapy works and identified common side effects including alopecia; myelosuppression-including neutropenia, anemia, thrombocytopenia; peripheral neuropathy; fatigue; nausea; diarrhea; constipation; bleeding or bruising; skin changes-rash/dryness; mouth sores; drug hypersensitivity/allergic reactions or anaphylaxis and increased risk of blood clots. They have also been informed how to contact the clinic with side effects or symptoms, including but not limited to fever greater than 100.4???, chills, sore throat, bleeding or bruising that is not explained or mouth sores, cough, nasal discharge, diarrhea, constipation, nausea and/or vomiting not relieved with medications on hand at home, as well as any other concern or question they may have. Our hours are 8:00 a.m. to 4:30 p.m. on Tuesday through and 8-12:00 on Tuesday. However, someone is electrical instrumentation technician 24 hours per day and they have been advised to contact the [facility] at if it is after hours. We have also discussed potential long-term side effects of chemotherapy including secondary cancers, infertility, pulmonary complications, cardiac complications, and again peripheral neuropathy. We have discussed that they certainly need to let us know before taking any antioxidants or herbal or further dietary supplements, as we are unsure of how these agents react with chemotherapy and we request that they avoid these products for now. They were informed that it is okay to take multivitamins at normal doses. They verbally state that they understand to take all medications as directed by their healthcare provider unless otherwise indicated. Instructions for oral care with baking soda and salt water rinses as well as a guide for use of [id number] medication were provided with the treatment plan. They have been given a written patient treatment plan, of which a copy is in the chart, as well as specific drug information. They have no questions and verbalized understanding and are willing to proceed with chemotherapy at this time. The majority of this visit was spent in face to face communication with this patient and/or his/her family in regards to plan of care, side effect identification and management. Signed By: Yuri Springer0BC, AOCNP Dewayne Brown MD <<Signature on File>>
== END 2019-10-22 09:06 | disposition home or self-care (01) ==
PROVIDERS: PCP Internal Medicine; Visit Provider Nurse Practitioner
DX: C92.10 Chronic myeloid leukemia, BCR/ABL-positive, not having achieved remission (principal); D47.3 Essential (hemorrhagic) thrombocythemia; Z09 Encounter for follow-up examination after completed treatment for conditions other than malignant neoplasm; Z87.440 Personal history of urinary (tract) infections; M80.08XD Age-related osteoporosis with current pathological fracture, vertebra(e), subsequent encounter for fracture with routine healing; M48.061 Spinal stenosis, lumbar region without neurogenic claudication; I10 Essential (primary) hypertension; E78.5 Hyperlipidemia, unspecified; K21.9 Gastro-esophageal reflux disease without esophagitis; G62.9 Polyneuropathy, unspecified; Z92.3 Personal history of irradiation; Z79.899 Other long term (current) drug therapy
CPT/HCPCS: 80053; 83615; 85007; 85025; 99214

== ENCOUNTER 2019-10-29 13:00 | Outpatient (CLI) | payer MEDICARE, MEDICAID, SELFPAY ==
[2019-10-29 15:08] LABS: Basophils # 1.1 10^3/uL (0.0-0.1); Basophils % 4.6 %; Eosinophils # 0.4 10^3/uL (0.0-0.8); Eosinophils % 1.8 %; Hematocrit 46.9 % (37.0-47.0); Lymphocytes # 2.8 10^3/uL (0.8-4.8); Lymphocytes % 11.8 %; Mean Corpuscular Hemoglobin 28.5 pg (28.0-34.0); Mean Corpuscular Volume 89.2 fL (81-99); Mean Platelet Volume 11.1 fL (7.4-10.4); Monocytes # 1.2 10^3/uL (0.2-0.9); Monocytes % 4.8 %; Neutrophils # 15.89 10^3/uL (1.8-7.7); Nucleated Red Blood Cells % 0 %; Platelet Count 1071 10^3/cmm (130-400); Red Blood Count 5.26 10^6/uL (4.1-5.3); White Blood Count 24.1 10^3/uL (4.0-10.0)
[2019-10-29 15:09] LABS: Add Urine Microscopic? YES; Bilirubin Urine Neg (NEGATIVE); Blood Urine 2+ (Negative); Glucose Urine UA Norm (Normal); Ketones Urine 1+ (Negative); Leukocyte Esterase Urine Negative (Negative); Nitrate Urine Negative (Negative); Protein Urine Neg (Negative); Specific Gravity, Urine 1.015 (1.005-1.030); Urine Appearance Clear (CLEAR); Urine Color Yellow (Yellow); Urobilinogen Urine Norm (Negative); pH Urine 5 (5-7)
[2019-10-29 15:21] LABS: Add Urine Culture? No; Bacteria Urine TRACE; RBC Urine 0-4 /hpf (0-2); WBC Urine 0-4 /hpf (0-5)
[2019-10-29 15:28] LABS: Alanine Aminotransferase 35 U/L (0-33); Albumin Level 4.3 g/dL (3.5-5.2); Alkaline Phosphatase 104 IU/L (35-105); Anion Gap 18.4 (5-19); Aspartate Amino Transferase 33 U/L (0-32); Blood Urea Nitrogen 7 mg/dL (8-23); Carbon Dioxide 25 mmol/L (22-29); Chloride 94 mmol/L (98-107); Glomerular Filtration Rate 221.2 mL/min (90-130); Glucose 52 mg/dL (65-115); Lactate Dehydrogenase 279 U/L (135-214); Osmolality Calculated 271 mOsm/kg (285-295); Potassium 3.4 mmol/L (3.5-5.1); Sodium 134 mmol/L (136-145); Total Bilirubin 0.4 mg/dL (0.15-1.2); Total Protein 7.3 g/dL (6.6-8.7)
[2019-10-29 15:50] LABS: Slide Review Slide Review Perform
== END 2019-10-29 13:01 | disposition home or self-care (01) ==
LOC: ONCMED 14:29
PROVIDERS: PCP Internal Medicine; Visit Provider Nurse Practitioner
DX: D72.829 Elevated white blood cell count, unspecified (principal); C92.10 Chronic myeloid leukemia, BCR/ABL-positive, not having achieved remission
CPT/HCPCS: 36415; 80053; 81001; 81003; 83615; 85025; 87077; 87086; 87186

== ENCOUNTER 2019-11-05 10:07 | Outpatient (CLI) | payer MEDICARE, MEDICAID, SELFPAY ==
--- NOTE | 2019-11-05 10:30 | ECG_ITS ---
[facility] Test Date: 2019-11-05 Pat Name: Mary Cristobal Department: Room: Gender: Female Conciliator: : 1950 Requested By: Dewayne Galicia Order Number: [id number] Christopher MD: Elisa Aguilar M.D. Measurements Intervals [place] Rate: 81 P: 58 DC: 137 QRS: 20 QRSD: 89 T: 34 QT: 368 QTc: 429 Interpretive Statements SINUS RHYTHM Compared to ECG 10/18/2019 10:50:04 Myocardial infarct finding no longer present Electronically Signed On 11-05-2019 16:36:53 CDT by Elisa Aguilar M.D. [email or web address]
[2019-11-05 10:59] LABS: Basophils # 0.4 10^3/uL (0.0-0.1); Basophils % 2.1 %; Eosinophils # 0.3 10^3/uL (0.0-0.8); Eosinophils % 1.7 %; Hematocrit 43.8 % (37.0-47.0); Hemoglobin 14.1 g/dL (11.5-15.3); Lymphocytes # 1.9 10^3/uL (0.8-4.8); Lymphocytes % 9.9 %; Mean Corpuscular HGB Conc 32.2 g/dL (30.0-36.0); Mean Corpuscular Hemoglobin 28.8 pg (28.0-34.0); Mean Corpuscular Volume 89.6 fL (81-99); Mean Platelet Volume 10.4 fL (7.4-10.4); Monocytes # 0.9 10^3/uL (0.2-0.9); Monocytes % 4.6 %; Neutrophils # 14.99 10^3/uL (1.8-7.7); Neutrophils % 78.5 %; Nucleated Red Blood Cells % 0 %; Platelet Count 643 10^3/cmm (130-400); Red Blood Count 4.89 10^6/uL (4.1-5.3); Red Cell Distribution Width 14.6 % (12.1-15.1); White Blood Count 19.1 10^3/uL (4.0-10.0)
--- NOTE | 2019-11-05 14:45 | ONC FU_ITS ---
[facility] Patient Note Patient: Mary Cristobal Unit #: [id number]: 1950 Dictated By: Yuri SpringerDate of Visit: Nov 05, 2019 Onc MED Follow-Up/Prog Note Chief Complaint: Leukocytosis and thrombocytosis. History of Present Illness: Ms Cristobal is a 69 year-old woman with suspected chronic myeloid leukemia, presenting with leukocytosis and thrombocytosis. She has longstanding osteoporosis with associated vertebral compression fractures, complicated by degenerative disease of the spine and lumbar stenosis. She has had chronic back pain and limited mobility. She has additional history of having undergone radiation for cervical cancer 37 years ago. 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 Grey. On 09/19/2019 she was admitted to the hospital with increased back pain in association with an acute vertebral fracture at T12. Lumbar spine CT confirmed a mild burst fracture at T12 with 4.4 mm retropulsion and mild contact on the ventral thecal sac. There was a remote appearing 50% burst fracture of L3 resulting in moderate central and bilateral subarticular recess stenosis. There was moderate to severe central, foraminal, and subarticular recess stenosis at L3-4, and there was moderate to severe central and bilateral subarticular recess stenosis and mild left foraminal stenosis at L4-5. Her initial CBC showed normal hemoglobin at 13.6 g with hematocrit 41.7%. The white blood cell count was significantly elevated at 44,200 and the platelet count also was significantly elevated at 1,144,000. The automated differential included 74. % neutrophils, 4% lymphocytes, 1% monocytes, less than 1% eosinophils, and 1% basophils. Her repeat CBC the following day showed similar findings with hemoglobin 13.8 g, white blood cell count 59,200, and platelet count 1,090,000. The manual differential included 66% segmented neutrophils, 23% band neutrophils, 4% myelocytes, 2% metamyelocytes, 4% lymphocytes, and 1% monocytes. Her comprehensive metabolic profile was unremarkable except for slightly elevated alkaline phosphatase. During the hospitalization she was given antibiotic therapy for urinary tract infection. She otherwise had symptomatic management. She was discharged home on 09/24/2019. Ms Cristobal was seen by Dr Brown on October 01, 2019. He discussed with Ms. Cristobal and her daughter that she most likely had chronic myeloid leukemia. Additional studies for BCR/ABL were requested. We did receive notification from [facility] and [facility] that she was positive for the BCR/ABL1 fusion. With that additional information Dr. Brown has recommended that she start nilotinib. Mrs. Cristobal is here today for follow-up. She has received the nilotinib via the specialty pharmacy and began it on 10/23/2019. She has no new concerns today. She denies any pain. She has had some ankle discomfort but notices that is with the swelling she currently has in her ankles. She denies any fever or chills or any signs of infection for at least the last 72 hours. She denies any new shortness of breath or orthopnea. She has had no cough, she denies chest discomfort or palpitations. She denies any nausea or vomiting at present time. She states she has had nausea 2-3 times and did take Zofran twice with relief both times. She states her bowels are normal for her- her bladder is normal as well. She does have lower extremity edema. She states it has been there for sometime and it had not been changing unti a few weeks ago. She notices she has lower extremity/ankle edema if she sits up for a long period of time. She states the swelling is a little worse today, but continues to go down at night. She states this has been chronic but seems to be happening a little faster than it used to. She has trouble swallowing pills so she is cutting some of her tablets into smaller portions to swallow them. She denies any problems swallowing food or liquids. She has had no neuropathy symptoms that have worsened since her last visit. Her ECOG is 1. Past Medical History: Degenerative disease of the spine with lumbar stenosis Gastroesophageal reflux disease History of cervical cancer treated with radiation in 1983 History of recurrent urinary tract infections Hyperlipidemia Hypertension Multiple vertebral compression fractures Osteoporosis Peripheral neuropathy Radiation plexitis Past Surgical History: Left ankle repair Left total knee arthroplasty Allergies: Demerol and Morphine Sulfate. Medications: amLODIPine Besylate 1 Tablet (of 10 mg) Oral daily Aspirin 1 Tablet (of 81 mg) Tablet, enteric coated Oral daily Lisinopril 1 Tablet (of 40 mg) Oral daily Omeprazole 1 Capsule (of 20 mg) Capsule Delayed Release Oral daily OXcarbazepine 1 Tablet (of 600 mg) Oral at bedtime oxyCODONE HCl 1 Tablet (of 15 mg) Oral q 8 hours PRN Simvastatin 1 Tablet (of 40 mg) Oral daily Tasigna 2 Capsule (of 150 mg) Oral b.i.d. Vitamin D2 1 Tablet (of 50 mcg ) Oral q 7 days Family History: Ms. Cristobal's mother at age 68: congestive heart failure. Ms. Cristobal's father at age 71: stroke. Father with heart disease at age 71. There is history of diabetes affecting her mother and all 5 siblings. Her mother with heart disease at age 68 and 2 brothers also from heart disease. Two other brothers and a sister are still living. Social History: Ms. Cristobal is and she is retired. Ms. Cristobal has never smoked. She has no history of drinking. Ms. Cristobal reports the following support systems: lives with spouse, significant other, family, or friends, lives in own house, supportive family/friends willing to assist with needs, and adequate transportation available for expected visits. Her diet consists of regular meals. She indicates her activity level as: sedentary. She is a non-smoker. She does not drink alcohol. Review Of Symptoms: Constitutional Denies fevers, chills, night sweats, excessive fatigue or weight loss. Allergic/Immunologic No reactions. Eyes Denies significant visual changes. No diplopia. No amaurosis. ENMT Denies changes in hearing, sore throat, mouth sores, difficulty or changes in swallowing ability, and/or sinus drainage. Endocrine No diabetes, thyroid disease or hormone replacement. Denies hot flashes or night sweats. Hematologic/Lymphatic Denies easy bruising or bleeding. The patient denies any tender or palpable lymph nodes. Respiratory Denies dyspnea on exertion, chest pain, cough or hemoptysis. Denies orthopnea. Cardiovascular Denies anginal chest pain, palpitations or orthopnea. Gastrointestinal Denies nausea, vomiting, diarrhea, GI bleeding, or constipation. Denies change in bowel habits and/or stool color, no heartburn or early satiety. Genitourinary (F) No hematuria, hesitancy, incontinence, vaginal bleeding, discharge or other problems with urination. Had massive UTI about 2 weeks ago . Musculoskeletal Denies joint pain, swelling or redness. No decreased range of motion. Integumentary Denies chronic rashes, inflammation, ulcerations or skin changes. Neurologic Denies headache, blurred vision, and no areas of focal weakness or numbness. Cannot walk due to broken back. Psychiatric Denies insomnia, depression, devyn or mood swings. Vital Signs: Performed on Nov 05, 2019 11:39 Height - 68.00 in Temperature - 98.0 F (LOW) Pulse - 82 /min Respiration - 16 /min BP - 91/55 mm(hg) O2 Sat - 95 % (LOW) Pain - 0,2 - Ambulatory/capable of all self-care, unable to perform any work activities. Up and about more than 50% of waking hours. (ECOG) Physical Examination: Constitutional Alert, oriented, no acute distress. Skin pink, warm and dry. Head Normocephalic; atraumatic. Eyes Conjunctivae and sclerae are clear and without icterus. Pupils are reactive and equal. Neck Supple without masses or thyromegaly. No jugular venous distension. Hematologic/Lymphatic No petechiae or purpura. Respiratory Lungs are clear to auscultation without rhonchi or wheezing. Cardiovascular Regular rate and rhythm of heart without murmurs,clicks, gallops or rubs. Back/Spine Non-tender to palpation. Extremities No visible deformities, no cyanosis, clubbing or edema. Integumentary No rashes or lesions. Neurologic No sensory or motor deficits, normal cerebellar function, in wheechair-not new. Psychiatric Alert and oriented times three. Coherent speech. Verbalizes understanding of our discussions today. Laboratory:Test performed on Nov 05, 2019 10:50 WBC 19.1 10^9/L RBC 4.89 10^12/L HGB 14.1 g/dL HCT 43.8 % MCV 89.6 fl MCH 28.8 pg MCHC 32.2 g/dL RDW 14.6 % Platelet Count 643 10^9/L MPV 10.4 fL Neutrophils (Gran) 14.99 10^9/L Lymphocytes 1.9 10^9/L Monocytes 0.9 10^9/L Eosinophils 0.3 10^9/L Basophils 0.4 10^9/L Manual Lymphocytes 9.9 % Manual Monocytes 4.6 % Manual Eosinophils 1.7 % Manual Basophils 2.1 % Test performed on Oct 22, 2019 10:20 LDH (Total) 324 U/L Sodium 135 mmol/L Potassium 4.2 mmol/L Chloride 98 mmol/L CO2 27 mmol/L Anion Gap 14.2 BUN 10 mg/dL Creatinine 0.4 mg/dL Cr Clearance (Est) 134.9500 mL/min eGFR 158.7 mL/min Glucose 74 mg/dL Calcium 8.8 mg/dL Protein, Total 6.6 g/dL Albumin 3.9 g/dL Globulin 2.7 g/dL Bilirubin, Total 0.3 mg/dL ALT (SGPT) 14 U/L AST (SGOT) 20 U/L Alkaline Phosphatase 111 IU/L Manual Bands % 3.0 % Metamyelocytes % 6.0 % Myelocytes % 5.0 % Promyelocytes % 1.0 % Smudge Cells Trace NRBC % 0 % Anisocytosis 1+ CBC Slide Review Slide Review Perform Poikilocytosis 1+ Manual Bands Abs 1.1 10 3/cmm Manual Neutrophils Abs 26.4 10 3/cmm Manual Monocytes Abs 0.4 10 3/cmm Manual Eosinophils Abs 0.7 10 3/cmm Manual Basophils Abs 1.8 10 3/cmm Test performed on Oct 01, 2019 11:50 Uric Acid 3.0 mg/dL Vitamin B12 794 pg/mL Neutrophil % 80.3 % Lymphocyte % 6.2 % Monocyte % 4.4 % Eosinophil % 4.6 % Basophils % 4.5 % Impression: 1. Patient with significant leukocytosis and thrombocytosis in association with normal hemoglobin/hematocrit levels. The manual differential showed predominantly granulocytes, but with a significant left shift. The findings are consistent with a myeloproliferative disorder, most likely chronic myeloid leukemia. CML: BCR/ABL positive. 2. She has severe osteoporosis with multiple vertebral compression fractures, including a recent burst type fracture at T12. 3. She has evidence of degenerative disease in the lumbar spine and previous vertebral compression compression fracture at L3 with associated lumbar central canal stenosis. 4. She underwent radiation for cervical cancer in 1983, and she was previously diagnosed with radiation plexitis. Her other and medical illnesses include: 5. Hypertension. 6. Hyperlipidemia. 7. GERD. 8. Peripheral neuropathy. 9. She has a history of recurrent urinary tract infections. The laboratory findings and clinical implications were reviewed with Ms Cristobal and her daughter per Dr Brown on october 02, 2019. While some component of the elevated blood counts may be reactive in association with acute illness, the findings are clearly consistent with a myeloproliferative disorder, most likely chronic myeloid leukemia. Further workup resulted in a positive BCR/ABL1 fusion. With the BCR/ABL1 being positive and her elevated blood counts, it was recommended that she begin a trial of nilotinib. She began nilotinib on 10/23/2019. She has tolerated this well thus far. Plan: 1. Proceed with nilotinib 150 mg 2 capsules twice daily. She started her first dose on October 23, 2019. 2. Continue Zofran 4 mg 1 or 2 every 6-8 hours as needed for nausea as inrcated 3. AVOID GRAPEFRUIT PRODUCTS WITH NILOTINIB. 4. Labs from today were reviewed in detail and discussed with Ms. Cristobal and her daughter and a copy was given to them. White count is 19.1 hemoglobin 14.1 platelets 643,000. Her platelet count on October 29, 2019 was 1,000,071 and her hemoglobin is 15.0 white count that time was 24.1. Her creatinine was 0.3 LFTs were normal. Her LDH had improved to 279 from 474 on October 01, 2019. 5. Repeat UA had shown trace bacteria which did culture to be sensitive to Bactrim therefore she was placed on Bactrim and will recheck her UA after she is been off of it for 3 days. She is still currently on it today. We will arrange is to get a UA with her next in-home labs on or around November 12, 2019. 6. We did discuss using MARGRET hose, support hose, elevating her feet or even diuretics for her lower extremity edema. She does not want to pursue diuretics now she states she has a hard time getting to the bathroom and straight should have incontinence of urine frequently. She will try to elevate them more. She really does not want try support stockings or hose due to difficulty of getting them on and is only hot outside right now. 7. We will plan to see her back in 2-3 weeks with CBC and followup EKG. Her Qtc was 429 today-it was 453 on 10/18/2019 study. No dose changes required unless Qtc is > 480 msec.. We will plan to check a CBC, CMP and magnsiums and UA 1 week. 8. Ms Cristobal was instructed to call us in the interim if questions or problems arise. Signed By: Yuri Springer-, AOCNP Dewayne Brown MD <<Signature on File>>
== END 2019-11-05 10:08 | disposition home or self-care (01) ==
LOC: LAB 10:12 → ONCMED 11:48
PROVIDERS: PCP Internal Medicine; Visit Provider Internal Medicine Medical Oncology
DX: C92.10 Chronic myeloid leukemia, BCR/ABL-positive, not having achieved remission (principal); M51.35 Other intervertebral disc degeneration, thoracolumbar region; I10 Essential (primary) hypertension; E78.5 Hyperlipidemia, unspecified; K21.9 Gastro-esophageal reflux disease without esophagitis; G62.9 Polyneuropathy, unspecified; Z87.440 Personal history of urinary (tract) infections
CPT/HCPCS: 36415; 85025; 93005; 99214

== ENCOUNTER 2019-11-12 14:05 | Outpatient (CLI) | payer MEDICARE, MEDICAID, SELFPAY ==
[2019-11-12 15:52] LABS: Basophils # 0.1 10^3/uL (0.0-0.1); Basophils % 1.3 %; Eosinophils # 0.5 10^3/uL (0.0-0.8); Eosinophils % 6.3 %; Hematocrit 42.5 % (37.0-47.0); Hemoglobin 13.7 g/dL (11.5-15.3); Lymphocytes # 1.6 10^3/uL (0.8-4.8); Lymphocytes % 18.1 %; Mean Corpuscular HGB Conc 32.2 g/dL (30.0-36.0); Mean Corpuscular Hemoglobin 29.1 pg (28.0-34.0); Mean Corpuscular Volume 90.4 fL (81-99); Mean Platelet Volume 11.1 fL (7.4-10.4); Monocytes # 0.5 10^3/uL (0.2-0.9); Monocytes % 5.9 %; Neutrophils # 5.83 10^3/uL (1.8-7.7); Neutrophils % 67.6 %; Nucleated Red Blood Cells % 0 %; Platelet Count 447 10^3/cmm (130-400); Red Cell Distribution Width 14.6 % (12.1-15.1); White Blood Count 8.6 10^3/uL (4.0-10.0)
[2019-11-12 18:41] LABS: Alanine Aminotransferase 57 U/L (0-33); Albumin Level 3.8 g/dL (3.5-5.2); Alkaline Phosphatase 118 IU/L (35-105); Aspartate Amino Transferase 37 U/L (0-32); Blood Urea Nitrogen 11 mg/dL (8-23); Calcium 8.5 mg/dL (8.5-10.5); Carbon Dioxide 22 mmol/L (22-29); Chloride 95 mmol/L (98-107); Globulin 2.5 g/dL (1.3-4.6); Glomerular Filtration Rate 221.2 mL/min (90-130); Glucose 69 mg/dL (65-115); Osmolality Calculated 262 mOsm/kg (285-295); Sodium 129 mmol/L (136-145); Total Bilirubin 0.5 mg/dL (0.15-1.2); Total Protein 6.3 g/dL (6.6-8.7)
[2019-11-12 18:46] LABS: Anion Gap 16.3 (5-19)
[2019-11-12 18:47] LABS: Potassium 4.3 mmol/L (3.5-5.1)
== END 2019-11-12 14:06 | disposition home or self-care (01) ==
LOC: ONCMED 16:15
PROVIDERS: PCP Internal Medicine; Visit Provider Internal Medicine Medical Oncology
DX: C92.10 Chronic myeloid leukemia, BCR/ABL-positive, not having achieved remission (principal)
CPT/HCPCS: 36415; 80053; 85025

== ENCOUNTER 2019-11-19 11:44 | Outpatient (CLI) | payer MEDICARE, MEDICAID, SELFPAY ==
[2019-11-19 13:44] LABS: Alanine Aminotransferase 42 U/L (0-33); Albumin Level 4.2 g/dL (3.5-5.2); Alkaline Phosphatase 124 IU/L (35-105); Anion Gap 13.8 (5-19); Aspartate Amino Transferase 24 U/L (0-32); Blood Urea Nitrogen 10 mg/dL (8-23); Calcium 8.3 mg/dL (8.5-10.5); Carbon Dioxide 25 mmol/L (22-29); Chloride 100 mmol/L (98-107); Globulin 2.4 g/dL (1.3-4.6); Glomerular Filtration Rate 221.2 mL/min (90-130); Glucose 78 mg/dL (65-115); Osmolality Calculated 275 mOsm/kg (285-295); Potassium 3.8 mmol/L (3.5-5.1); Sodium 135 mmol/L (136-145); Total Bilirubin 0.6 mg/dL (0.15-1.2); Total Protein 6.6 g/dL (6.6-8.7)
[2019-11-19 13:47] LABS: Basophils # 0.1 10^3/uL (0.0-0.1); Basophils % 0.9 %; Eosinophils # 0.3 10^3/uL (0.0-0.8); Eosinophils % 3.9 %; Hemoglobin 14.1 g/dL (11.5-15.3); Lymphocytes # 1.9 10^3/uL (0.8-4.8); Lymphocytes % 24.7 %; Mean Corpuscular Hemoglobin 29.1 pg (28.0-34.0); Mean Corpuscular Volume 90.7 fL (81-99); Mean Platelet Volume 11.4 fL (7.4-10.4); Monocytes # 0.4 10^3/uL (0.2-0.9); Monocytes % 4.7 %; Neutrophils # 5.04 10^3/uL (1.8-7.7); Neutrophils % 65.2 %; Nucleated Red Blood Cells % 0 %; Platelet Count 224 10^3/cmm (130-400); Red Blood Count 4.85 10^6/uL (4.1-5.3); Red Cell Distribution Width 14.7 % (12.1-15.1); White Blood Count 7.7 10^3/uL (4.0-10.0)
[2019-11-19 14:01] LABS: Urine Color Dark Yellow (Yellow)
[2019-11-19 14:02] LABS: Add Urine Microscopic? YES; Bilirubin Urine 2+ (NEGATIVE); Blood Urine Neg (Negative); Glucose Urine UA Norm (Normal); Ketones Urine Negative (Negative); Leukocyte Esterase Urine Negative (Negative); Nitrate Urine Negative (Negative); Protein Urine Neg (Negative); Specific Gravity, Urine 1.025 (1.005-1.030); Urine Appearance Hazy (CLEAR); Urobilinogen Urine 8 mg/dL (Negative); pH Urine 6 (5-7)
[2019-11-19 14:11] LABS: Add Urine Culture? No; Bacteria Urine 1+; Mucus Urine 2+; RBC Urine 0-4 /hpf (0-2); WBC Urine 0-4 /hpf (0-5)
== END 2019-11-19 11:45 | disposition home or self-care (01) ==
LOC: ONCMED 13:35
PROVIDERS: PCP Internal Medicine; Visit Provider Nurse Practitioner
DX: C92.10 Chronic myeloid leukemia, BCR/ABL-positive, not having achieved remission (principal); Z51.81 Encounter for therapeutic drug level monitoring; Z79.899 Other long term (current) drug therapy; N39.0 Urinary tract infection, site not specified
CPT/HCPCS: 80053; 81001; 85025; 87086

== ENCOUNTER 2019-11-26 09:57 | Outpatient (RCR) | payer MEDICARE, MEDICAID, SELFPAY ==
[2019-11-26 10:24] LABS: Basophils # 0.1 10^3/uL (0.0-0.1); Basophils % 0.8 %; Eosinophils # 0.2 10^3/uL (0.0-0.8); Hematocrit 46.3 % (37.0-47.0); Hemoglobin 14.8 g/dL (11.5-15.3); Lymphocytes # 1.6 10^3/uL (0.8-4.8); Lymphocytes % 23.7 %; Mean Corpuscular Hemoglobin 28.4 pg (28.0-34.0); Mean Corpuscular Volume 88.7 fL (81-99); Mean Platelet Volume 10.8 fL (7.4-10.4); Monocytes # 0.4 10^3/uL (0.2-0.9); Monocytes % 5.9 %; Neutrophils # 4.37 10^3/uL (1.8-7.7); Neutrophils % 66.3 %; Nucleated Red Blood Cells % 0 %; Platelet Count 125 10^3/cmm (130-400); Red Blood Count 5.22 10^6/uL (4.1-5.3); Red Cell Distribution Width 14.3 % (12.1-15.1); White Blood Count 6.6 10^3/uL (4.0-10.0)
--- NOTE | 2019-11-26 13:05 | ECG_ITS ---
[facility] Test Date: 2019-11-26 Pat Name: Mary Cristobal Department: Room: Gender: Female [employer]: : 1950 Requested By: Dewayne Galicia Order Number: [id number] Christopher MD: Bobby Garcia M.D. Measurements Intervals [place] Rate: 81 P: 58 SD: 137 QRS: 23 QRSD: 96 T: 40 QT: 385 QTc: 449 Interpretive Statements SINUS RHYTHM Compared to ECG 11/05/2019 10:29:13 No significant changes Electronically Signed On 11-26-2019 23:42:02 CDT by Bobby Garcia M.D. [email or web address]
--- NOTE | 2019-11-26 16:39 | ONC FU_ITS ---
[facility] Patient Note Patient: Mary Cristobal Unit #: [id number]: 1950 Dictated By: Yuri SpringerDate of Visit: Nov 26, 2019 Onc MED Follow-Up/Prog Note Chief Complaint: Leukocytosis and thrombocytosis. History of Present Illness: Ms Cristobal is a 69 year-old woman with suspected chronic myeloid leukemia, presenting with leukocytosis and thrombocytosis. She has longstanding osteoporosis with associated vertebral compression fractures, complicated by degenerative disease of the spine and lumbar stenosis. She has had chronic back pain and limited mobility. She has additional history of having undergone radiation for cervical cancer 37 years ago. 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 Grey. On 09/19/2019 she was admitted to the hospital with increased back pain in association with an acute vertebral fracture at T12. Lumbar spine CT confirmed a mild burst fracture at T12 with 4.4 mm retropulsion and mild contact on the ventral thecal sac. There was a remote appearing 50% burst fracture of L3 resulting in moderate central and bilateral subarticular recess stenosis. There was moderate to severe central, foraminal, and subarticular recess stenosis at L3-4, and there was moderate to severe central and bilateral subarticular recess stenosis and mild left foraminal stenosis at L4-5. Her initial CBC showed normal hemoglobin at 13.6 g with hematocrit 41.7%. The white blood cell count was significantly elevated at 44,200 and the platelet count also was significantly elevated at 1,144,000. The automated differential included 74. % neutrophils, 4% lymphocytes, 1% monocytes, less than 1% eosinophils, and 1% basophils. Her repeat CBC the following day showed similar findings with hemoglobin 13.8 g, white blood cell count 59,200, and platelet count 1,090,000. The manual differential included 66% segmented neutrophils, 23% band neutrophils, 4% myelocytes, 2% metamyelocytes, 4% lymphocytes, and 1% monocytes. Her comprehensive metabolic profile was unremarkable except for slightly elevated alkaline phosphatase. During the hospitalization she was given antibiotic therapy for urinary tract infection. She otherwise had symptomatic management. She was discharged home on 09/24/2019. Ms Cristobal was seen by Dr Brown on October 01, 2019. He discussed with Ms. Cristobal and her daughter that she most likely had chronic myeloid leukemia. Additional studies for BCR/ABL were requested. We did receive notification from Yash and [facility] that she was positive for the BCR/ABL1 fusion. Her pathology from her bone marrow biopsy reported on 10/18/2019 revealed CD34 positive blastas and CD117 positive immature precursors are not increased (approximately 1.5% of total cellularity). Plasma cells were also not increased. The granulocytes show normal phenotypic maturation based on the pattern of CD10, CD 11 B, CD13 and CD16 expression. Impression overall was no overtly apparent myeloid or lymphoid populations were detected. Final diagnostic interpretation was chronic myeloid leukemia, BCR???ABL 1???positive (CML), chronic phase. With thatl information Dr. Brown has recommended that she start nilotinib. Mrs. Cristobal is here today for follow-up. She has received the nilotinib via the specialty pharmacy and began it on 10/23/2019. Ms. Cristobal continues to do well overall. She states she is feeling better. She still has fatigue but states it is her normal. She states she almost feels like she did prior to fine all this out . She had an abnormal UA last week but has no urinary tract and symptoms. Her daughter reminds me that she was placed in the hospital on IV antibiotics for UTI and had no symptoms including fever at that time. She currently is on Keflex prophylactically. She did have 1+ bacteria and 2+ mucus on the UA from 11/19/2019. She states that she feels good she states her constipation is better. She states she is eating better overall. She continues to utilize wheelchair for mobility. She has some chronic left lower extremity edema but states is no worse and it does resolve if she elevates her feet while setting. She denies any new pain. She denies mouth sores, sore throat or difficulty swallowing. She denies any shortness of breath, orthopnea or hemoptysis. She denies any neuropathy symptoms. Her ECOG is 2. Past Medical History: Degenerative disease of the spine with lumbar stenosis Gastroesophageal reflux disease History of cervical cancer treated with radiation in 1983 History of recurrent urinary tract infections Hyperlipidemia Hypertension Multiple vertebral compression fractures Osteoporosis Peripheral neuropathy Radiation plexitis Past Surgical History: Left ankle repair Left total knee arthroplasty Allergies: Demerol and Morphine Sulfate. Medications: amLODIPine Besylate 1 Tablet (of 10 mg) Oral daily Aspirin 1 Tablet (of 81 mg) Tablet, enteric coated Oral daily Lisinopril 1 Tablet (of 40 mg) Oral daily Omeprazole 1 Capsule (of 20 mg) Capsule Delayed Release Oral daily OXcarbazepine 1 Tablet (of 600 mg) Oral at bedtime oxyCODONE HCl 1 Tablet (of 15 mg) Oral q 8 hours PRN Simvastatin 1 Tablet (of 40 mg) Oral daily Tasigna 1 Capsule (of 150 mg) Oral b.i.d. Vitamin D2 1 Tablet (of 50 mcg ) Oral q 7 days Family History: Ms. Cristobal's mother at age 68: congestive heart failure. Ms. Cristobal's father at age 71: stroke. Father with heart disease at age 71. There is history of diabetes affecting her mother and all 5 siblings. Her mother with heart disease at age 68 and 2 brothers also from heart disease. Two other brothers and a sister are still living. Social History: Ms. Cristobal is and she is retired. Ms. Cristobal has never smoked. She has no history of drinking. Ms. Cristobal reports the following support systems: lives with spouse, significant other, family, or friends, lives in own house, supportive family/friends willing to assist with needs, and adequate transportation available for expected visits. Her diet consists of regular meals. She indicates her activity level as: sedentary. She is a non-smoker. She does not drink alcohol. Review Of Symptoms: Constitutional Denies fevers, chills, night sweats, excessive fatigue or weight loss. She states she has fatigue but it is no worse than what it has been. Allergic/Immunologic No reactions. Eyes Denies significant visual changes. No diplopia. No amaurosis. ENMT Denies changes in hearing, sore throat, mouth sores, difficulty or changes in swallowing ability, and/or sinus drainage. Endocrine No diabetes, thyroid disease or hormone replacement. Denies hot flashes or night sweats. Hematologic/Lymphatic Denies easy bruising or bleeding. The patient denies any tender or palpable lymph nodes. Respiratory Denies dyspnea on exertion, chest pain, cough or hemoptysis. Denies orthopnea. Cardiovascular Denies anginal chest pain, palpitations or orthopnea. Gastrointestinal Denies nausea, vomiting, diarrhea, GI bleeding, or constipation. Denies change in bowel habits and/or stool color, no heartburn or early satiety. Genitourinary (F) No hematuria, hesitancy, incontinence, vaginal bleeding, discharge or other problems with urination. Had massive UTI about 2 weeks ago . Musculoskeletal Denies joint pain, swelling or redness. No decreased range of motion. Integumentary Denies chronic rashes, inflammation, ulcerations or skin changes. Neurologic Denies headache, blurred vision, and no areas of focal weakness or numbness. Cannot walk due to broken back. Psychiatric Denies insomnia, depression, devyn or mood swings. Vital Signs: Performed on Nov 26, 2019 10:48 Height - 68.00 in Temperature - 98.4 F Pulse - 80 /min Respiration - 16 /min BP - 132/76 mm(hg) O2 Sat - 98 % Pain - 4,2 - Ambulatory/capable of all self-care, unable to perform any work activities. Up and about more than 50% of waking hours. (ECOG) Physical Examination: Constitutional Alert, oriented, no acute distress. Skin pink, warm and dry. Head Normocephalic; atraumatic. Eyes Conjunctivae and sclerae are clear and without icterus. Pupils are reactive and equal. Neck Supple without masses or thyromegaly. No jugular venous distension. Hematologic/Lymphatic No petechiae or purpura. Respiratory Lungs are clear to auscultation without rhonchi or wheezing. Cardiovascular Regular rate and rhythm of heart without murmurs,clicks, gallops or rubs. Back/Spine Non-tender to palpation. Extremities No visible deformities, no cyanosis, clubbing or edema. Musculoskeletal No tenderness or swelling. Integumentary No rashes or lesions. Neurologic No sensory or motor deficits, normal cerebellar function, in wheechair-not new. Psychiatric Alert and oriented times three. Coherent speech. Verbalizes understanding of our discussions today. Laboratory:Test performed on Nov 26, 2019 10:15 WBC 6.6 10 3/uL RBC 5.22 10 6/uL HGB 14.8 g/dL HCT 46.3 % MCV 88.7 fL MCH 28.4 pg MCHC 32.0 g/dL RDW 14.3 % Platelet Count 125 10 3/cmm MPV 10.8 fL Neutrophils 4.37 10 3/uL Lymphocytes 1.6 10 3/uL Monocytes 0.4 10 3/uL Eosinophils 0.2 10 3/uL Basophils 0.1 10 3/uL Neutrophil % 66.3 % Lymphocyte % 23.7 % Monocyte % 5.9 % Eosinophil % 3.0 % Basophils % 0.8 % NRBC % 0 % Test performed on Nov 05, 2019 10:50 Manual Lymphocytes 9.9 % Manual Monocytes 4.6 % Manual Eosinophils 1.7 % Manual Basophils 2.1 % Test performed on Oct 22, 2019 10:20 LDH (Total) 324 U/L Sodium 135 mmol/L Potassium 4.2 mmol/L Chloride 98 mmol/L CO2 27 mmol/L Anion Gap 14.2 BUN 10 mg/dL Creatinine 0.4 mg/dL Cr Clearance (Est) 134.9500 mL/min eGFR 158.7 mL/min Glucose 74 mg/dL Calcium 8.8 mg/dL Protein, Total 6.6 g/dL Albumin 3.9 g/dL Globulin 2.7 g/dL Bilirubin, Total 0.3 mg/dL ALT (SGPT) 14 U/L AST (SGOT) 20 U/L Alkaline Phosphatase 111 IU/L Manual Bands % 3.0 % Metamyelocytes % 6.0 % Myelocytes % 5.0 % Promyelocytes % 1.0 % Smudge Cells Trace Anisocytosis 1+ CBC Slide Review Slide Review Perform Poikilocytosis 1+ Manual Bands Abs 1.1 10 3/cmm Manual Neutrophils Abs 26.4 10 3/cmm Manual Monocytes Abs 0.4 10 3/cmm Manual Eosinophils Abs 0.7 10 3/cmm Manual Basophils Abs 1.8 10 3/cmm Test performed on Oct 01, 2019 11:50 Uric Acid 3.0 mg/dL Vitamin B12 794 pg/mL Impression: 1. Patient with significant leukocytosis and thrombocytosis in association with normal hemoglobin/hematocrit levels. The manual differential showed predominantly granulocytes, but with a significant left shift. The findings are consistent with a myeloproliferative disorder, most likely chronic myeloid leukemia. CML: BCR/ABL positive. 2. She has severe osteoporosis with multiple vertebral compression fractures, including a recent burst type fracture at T12. 3. She has evidence of degenerative disease in the lumbar spine and previous vertebral compression compression fracture at L3 with associated lumbar central canal stenosis. 4. She underwent radiation for cervical cancer in 1983, and she was previously diagnosed with radiation plexitis. Her other and medical illnesses include: 5. Hypertension. 6. Hyperlipidemia. 7. GERD. 8. Peripheral neuropathy. 9. She has a history of recurrent urinary tract infections. The laboratory findings and clinical implications were reviewed with Ms Cristobal and her daughter per Dr Brown on october 02, 2019. While some component of the elevated blood counts may be reactive in association with acute illness, the findings are clearly consistent with a myeloproliferative disorder, most likely chronic myeloid leukemia. Further workup resulted in a positive BCR/ABL1 fusion. With the BCR/ABL1 being positive and her elevated blood counts, it was recommended that she begin a trial of nilotinib. She began nilotinib on 10/23/2019. She has tolerated this well thus far. Her dose was verified twice today and she states she had started taking the nilotinib (Tasigna) ONE 150 mg tablet twice daily. Her original prescription was 150 mg TWO tablets twice daily. She is tolerating it well and her blood counts have improved. Plan: 1. Proceed nilotinib-but will decrease dose to 1/2 of what she is currently taking. She informed the nurse rooming her that her dose was 150 1 tablet twice daily. She started her first dose on October 23, 2019. She will be called once again to verify her dosing so we can chart it correctly in her medicine record. AT 1630 today she was called with EKG results and she once again stated she has always taken the nilotinib 150 mg ONE tablet twice daily. She will now just go to ONE tablet daily due to her blood counts responding so well. 2. Continue Zofran 4 mg 1 or 2 every 6-8 hours as needed for nausea as indicated. 3. AVOID GRAPEFRUIT PRODUCTS WITH NILOTINIB. 4. Labs from today were reviewed in detail and discussed with Ms. Cristobal and her daughter and a copy was given to them. White count is 6.6 hemoglobin 14.8 platelets 125,000. Her platelet count on October 29, 2019 was 1,000,071 and her hemoglobin is 15.0 white count that time was 24.1. Her creatinine from 11/19/2019 was 0.3. ALT 42 and AST 24l. Her last LDH on 10/29/2019 had improved to 279 from 474 on October 01, 2019. 5. Repeat UA had shown +1 bacteria and did show 2+ mucous. Culture did not show any growth. However her UA from 10/29/2019 did culture E coli. She is taking Keflex currently as a chronic prophylactix. She was taking it at the time of the most recent UA. I am going to go ahead and give her Macrodantin 100 mg twice daily for 5 days given that she has had such severe illness with asymptomatic urinary infection. 6. We did discuss using MARGRET hose, support hose, elevating her feet or even diuretics for her lower extremity edema. She does not want to pursue diuretics now she states she has a hard time getting to the bathroom and straight should have incontinence of urine frequently. She will try to elevate them more. She really does not want try support stockings or hose due to difficulty of getting them on and is only hot outside right now. 7. We will plan to see her back in 4 weeks with CBC, CMP, LDH. Her Qtc was today 449-it was 429 on 10/29/2019 and 453 on 10/18/2019 study. No dose changes required unless Qtc is > 480 msec... She will just need EKG's prn. Will recheck CBC, CMP, LDH in 2 weeks. 8. Ms Cristobal was instructed to call us in the interim if questions or problems arise. Signed By: Yuri Springer-, [facility] Dewayne Brown MD <<Signature on File>>
== END 2019-11-26 23:59 | disposition home or self-care (01) ==
LOC: ONCMED 09:57
PROVIDERS: PCP Internal Medicine; Visit Provider Nurse Practitioner
DX: C92.10 Chronic myeloid leukemia, BCR/ABL-positive, not having achieved remission (principal); Z51.81 Encounter for therapeutic drug level monitoring; Z79.899 Other long term (current) drug therapy; N39.0 Urinary tract infection, site not specified; R60.0 Localized edema; R32 Unspecified urinary incontinence; M81.0 Age-related osteoporosis without current pathological fracture; M48.061 Spinal stenosis, lumbar region without neurogenic claudication; I10 Essential (primary) hypertension; E78.5 Hyperlipidemia, unspecified; K21.9 Gastro-esophageal reflux disease without esophagitis; G62.9 Polyneuropathy, unspecified; Z87.440 Personal history of urinary (tract) infections; Z85.41 Personal history of malignant neoplasm of cervix uteri; Z79.2 Long term (current) use of antibiotics; Z92.3 Personal history of irradiation
CPT/HCPCS: 36415; 85025; 93005; 99214

== ENCOUNTER 2019-12-25 10:30 | Outpatient (RCR) | payer MEDICARE, MEDICAID, SELFPAY ==
[2019-12-10 15:15] LABS: Basophils % 0.6 %; Eosinophils # 0.2 10^3/uL (0.0-0.8); Eosinophils % 2.6 %; Hematocrit 44.7 % (37.0-47.0); Hemoglobin 14.3 g/dL (11.5-15.3); Lymphocytes # 1.9 10^3/uL (0.8-4.8); Lymphocytes % 29.3 %; Mean Corpuscular Hemoglobin 28.3 pg (28.0-34.0); Mean Corpuscular Volume 88.5 fL (81-99); Monocytes # 0.6 10^3/uL (0.2-0.9); Monocytes % 8.7 %; Neutrophils # 3.77 10^3/uL (1.8-7.7); Neutrophils % 58.5 %; Nucleated Red Blood Cells % 0 %; Platelet Count 242 10^3/cmm (130-400); Red Blood Count 5.05 10^6/uL (4.1-5.3); Red Cell Distribution Width 13.8 % (12.1-15.1); White Blood Count 6.5 10^3/uL (4.0-10.0)
[2019-12-10 15:31] LABS: Alanine Aminotransferase 20 U/L (0-33); Alkaline Phosphatase 134 IU/L (35-105); Anion Gap 13.8 (5-19); Aspartate Amino Transferase 18 U/L (0-32); Blood Urea Nitrogen 9 mg/dL (8-23); Calcium 8.4 mg/dL (8.5-10.5); Carbon Dioxide 27 mmol/L (22-29); Chloride 95 mmol/L (98-107); Globulin 2.3 g/dL (1.3-4.6); Glomerular Filtration Rate 158.7 mL/min (90-130); Glucose 81 mg/dL (65-115); Osmolality Calculated 269 mOsm/kg (285-295); Potassium 3.8 mmol/L (3.5-5.1); Sodium 132 mmol/L (136-145); Total Bilirubin 0.4 mg/dL (0.15-1.2); Total Protein 6.3 g/dL (6.6-8.7)
[2019-12-25 12:22] LABS: Basophils # 0.1 10^3/uL (0.0-0.1); Eosinophils # 0.3 10^3/uL (0.0-0.8); Eosinophils % 3.2 %; Hematocrit 47.8 % (37.0-47.0); Hemoglobin 15.5 g/dL (11.5-15.3); Lymphocytes # 2.4 10^3/uL (0.8-4.8); Mean Corpuscular HGB Conc 32.4 g/dL (30.0-36.0); Mean Corpuscular Hemoglobin 28.6 pg (28.0-34.0); Mean Corpuscular Volume 88.2 fL (81-99); Mean Platelet Volume 11.1 fL (7.4-10.4); Monocytes # 0.8 10^3/uL (0.2-0.9); Monocytes % 8.7 %; Neutrophils # 5.48 10^3/uL (1.8-7.7); Neutrophils % 59.8 %; Nucleated Red Blood Cells % 0 %; Platelet Count 258 10^3/cmm (130-400); Red Blood Count 5.42 10^6/uL (4.1-5.3); White Blood Count 9.2 10^3/uL (4.0-10.0)
[2019-12-25 12:49] LABS: Alanine Aminotransferase 21 U/L (0-33); Albumin Level 4.3 g/dL (3.5-5.2); Alkaline Phosphatase 150 IU/L (35-105); Aspartate Amino Transferase 19 U/L (0-32); Blood Urea Nitrogen 8 mg/dL (8-23); Calcium 9.1 mg/dL (8.5-10.5); Carbon Dioxide 29 mmol/L (22-29); Chloride 98 mmol/L (98-107); Globulin 2.5 g/dL (1.3-4.6); Glomerular Filtration Rate 221.2 mL/min (90-130); Glucose 65 mg/dL (65-115); Lactate Dehydrogenase 200 U/L (135-214); Osmolality Calculated 276 mOsm/kg (285-295); Sodium 135 mmol/L (136-145); Total Bilirubin 0.4 mg/dL (0.15-1.2); Total Protein 6.8 g/dL (6.6-8.7)
--- NOTE | 2020-01-01 20:49 | ONC FU_ITS ---
[facility] Patient Note Patient: Mary Cristobal Unit #: [id number]: 1950 Dictated By: Yuri SpringerDate of Visit: Dec 24, 2019 Onc MED Follow-Up/Prog Note The patient has been informed that the visit may not be secure and acknowledged the information. I have explained the option of participating in a telephone or video visit during the [facility]- [facility] emergency to the patient. After being given an opportunity to ask questions about and discuss this type of visit, the patient verbally consented to proceeding with the telephone/video visit. the patient understands that this service replaces an office visit and they may be billed and /or responsible for any applicable copayments Chief Complaint: Leukocytosis and thrombocytosis. History of Present Illness: Ms Cristobal is a 69 year-old woman with suspected chronic myeloid leukemia, presenting with leukocytosis and thrombocytosis. She has longstanding osteoporosis with associated vertebral compression fractures, complicated by degenerative disease of the spine and lumbar stenosis. She has had chronic back pain and limited mobility. She has additional history of having undergone radiation for cervical cancer 37 years ago. 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 Grey. On 09/19/2019 she was admitted to the hospital with increased back pain in association with an acute vertebral fracture at T12. Lumbar spine CT confirmed a mild burst fracture at T12 with 4.4 mm retropulsion and mild contact on the ventral thecal sac. There was a remote appearing 50% burst fracture of L3 resulting in moderate central and bilateral subarticular recess stenosis. There was moderate to severe central, foraminal, and subarticular recess stenosis at L3-4, and there was moderate to severe central and bilateral subarticular recess stenosis and mild left foraminal stenosis at L4-5. Her initial CBC showed normal hemoglobin at 13.6 g with hematocrit 41.7%. The white blood cell count was significantly elevated at 44,200 and the platelet count also was significantly elevated at 1,144,000. The automated differential included 74. % neutrophils, 4% lymphocytes, 1% monocytes, less than 1% eosinophils, and 1% basophils. Her repeat CBC the following day showed similar findings with hemoglobin 13.8 g, white blood cell count 59,200, and platelet count 1,090,000. The manual differential included 66% segmented neutrophils, 23% band neutrophils, 4% myelocytes, 2% metamyelocytes, 4% lymphocytes, and 1% monocytes. Her comprehensive metabolic profile was unremarkable except for slightly elevated alkaline phosphatase. During the hospitalization she was given antibiotic therapy for urinary tract infection. She otherwise had symptomatic management. She was discharged home on 09/24/2019. Ms Cristobal was seen by Dr Brown on October 01, 2019. He discussed with Ms. Cristobal and her daughter that she most likely had chronic myeloid leukemia. Additional studies for BCR/ABL were requested. We did receive notification from [facility] that she was positive for the BCR/ABL1 fusion. Her pathology from her bone marrow biopsy reported on 10/18/2019 revealed CD34 positive blastas and CD117 positive immature precursors are not increased (approximately 1.5% of total cellularity). Plasma cells were also not increased. The granulocytes show normal phenotypic maturation based on the pattern of CD10, CD 11 B, CD13 and CD16 expression. Impression overall was no overtly apparent myeloid or lymphoid populations were detected. Final diagnostic interpretation was chronic myeloid leukemia, BCR???ABL 1???positive (CML), chronic phase. With thatl information Dr. Brown has recommended that she start nilotinib. Mrs. Cristobal is seen today byt telehealth for follow-up. She has received the nilotinib via the specialty pharmacy and began it on 10/23/2019. She is currently on the nilotinib 150 mg daily. She apparently began then nilotinib at 150 mg 1 tablet twice daily. She has responded well to this dosing and blood counts were doing so well it was decreased to once a day. Her blood counts continue to respond well. She has no new concerns today. She denies any fever or chills. She is had no known COVID exposure, symptoms or personal testing. She states that she feels she is getting stronger. She is been more active around the house. She is utilizing mobility assistive devices less and less. She states her appetite is good. She denies any pain. She states she was coughing for a few days but that has subsided on its own. It was nonproductive and she had no fever at the time. She states overall she feels good. She denies any diarrhea or constipation. She is had no skin rashes or lesions. She states her bladder function is normal for her. She denies any lower extremity edema. She denies mouth sores, sore throat or difficulty swallowing. Her ECOG is 2 but improving per her report. Past Medical History: Degenerative disease of the spine with lumbar stenosis Gastroesophageal reflux disease History of cervical cancer treated with radiation in 1983 History of recurrent urinary tract infections Hyperlipidemia Hypertension Multiple vertebral compression fractures Osteoporosis Peripheral neuropathy Radiation plexitis Past Surgical History: Left ankle repair Left total knee arthroplasty Allergies: Demerol and Morphine Sulfate. Medications: amLODIPine Besylate 1 Tablet (of 10 mg) Oral daily Aspirin 1 Tablet (of 81 mg) Tablet, enteric coated Oral daily Lisinopril 1 Tablet (of 40 mg) Oral daily Omeprazole 1 Capsule (of 20 mg) Capsule Delayed Release Oral daily OXcarbazepine 1 Tablet (of 600 mg) Oral at bedtime oxyCODONE HCl 1 Tablet (of 15 mg) Oral q 8 hours PRN Simvastatin 1 Tablet (of 40 mg) Oral daily Tasigna 1 Capsule (of 150 mg) Oral daily Vitamin D2 1 Tablet (of 50 mcg ) Oral q 7 days Family History: Ms. Cristobal's mother at age 68: congestive heart failure. Ms. Cristobal's father at age 71: stroke. Father with heart disease at age 71. There is history of diabetes affecting her mother and all 5 siblings. Her mother with heart disease at age 68 and 2 brothers also from heart disease. Two other brothers and a sister are still living. Social History: Ms. Cristobal is and she is retired. Ms. Cristobal has never smoked. She has no history of drinking. Ms. Cristobal reports the following support systems: lives with spouse, significant other, family, or friends, lives in own house, supportive family/friends willing to assist with needs, and adequate transportation available for expected visits. Her diet consists of regular meals. She indicates her activity level as: sedentary. She is a non-smoker. She does not drink alcohol. Review Of Symptoms: Constitutional Denies fevers, chills, night sweats, excessive fatigue or weight loss. She states she has fatigue but it is some better. Allergic/Immunologic No reactions. Eyes Denies significant visual changes. No diplopia. No amaurosis. ENMT Denies changes in hearing, sore throat, mouth sores, difficulty or changes in swallowing ability, and/or sinus drainage. Endocrine No diabetes, thyroid disease or hormone replacement. Denies hot flashes or night sweats. Hematologic/Lymphatic Denies easy bruising or bleeding. The patient denies any tender or palpable lymph nodes. Respiratory Denies dyspnea on exertion, chest pain, cough or hemoptysis. Denies orthopnea. Cardiovascular Denies anginal chest pain, palpitations or orthopnea. Gastrointestinal Denies nausea, vomiting, diarrhea, GI bleeding, or constipation. Denies change in bowel habits and/or stool color, no heartburn or early satiety. Genitourinary (F) No hematuria, hesitancy, incontinence, vaginal bleeding, discharge or other problems with urination. Denies UTI symptoms. Musculoskeletal Denies joint pain, swelling or redness. No decreased range of motion. Integumentary Denies chronic rashes, inflammation, ulcerations or skin changes. Neurologic Denies headache, blurred vision, and no areas of focal weakness or numbness. Cannot walk due to broken back. Psychiatric Denies insomnia, depression, devyn or mood swings. Vital Signs: ,2 - Ambulatory/capable of all self-care, unable to perform any work activities. Up and about more than 50% of waking hours. (ECOG) Physical Examination: Laboratory:Test performed on Dec 25, 2019 10:30 LDH (Total) 200 U/L Sodium 135 mmol/L Potassium 4.0 mmol/L Chloride 98 mmol/L CO2 29 mmol/L Anion Gap 12.0 BUN 8 mg/dL Creatinine 0.3 mg/dL Cr Clearance (Est) 179.9300 mL/min eGFR 221.2 mL/min Glucose 65 mg/dL Osmolality - Calculated 276 mOsm/kg Calcium 9.1 mg/dL Protein, Total 6.8 g/dL Albumin 4.3 g/dL Globulin 2.5 g/dL Bilirubin, Total 0.4 mg/dL ALT (SGPT) 21 U/L AST (SGOT) 19 U/L Alkaline Phosphatase 150 IU/L WBC 9.2 10 3/uL RBC 5.42 10 6/uL HGB 15.5 g/dL HCT 47.8 % MCV 88.2 fL MCH 28.6 pg MCHC 32.4 g/dL RDW 14.0 % Platelet Count 258 10 3/cmm MPV 11.1 fL Neutrophils 5.48 10 3/uL Lymphocytes 2.4 10 3/uL Monocytes 0.8 10 3/uL Eosinophils 0.3 10 3/uL Basophils 0.1 10 3/uL Neutrophil % 59.8 % Lymphocyte % 26.0 % Monocyte % 8.7 % Eosinophil % 3.2 % Basophils % 1.0 % NRBC % 0 % Test performed on Nov 05, 2019 10:50 Manual Lymphocytes 9.9 % Manual Monocytes 4.6 % Manual Eosinophils 1.7 % Manual Basophils 2.1 % Test performed on Oct 01, 2019 11:50 Uric Acid 3.0 mg/dL Vitamin B12 794 pg/mL CBC Slide Review Slide Review Perform SLIDE REVIEW AGREES WITH AUTOMATED DIFF Impression: 1. Patient with significant leukocytosis and thrombocytosis in association with normal hemoglobin/hematocrit levels. The manual differential showed predominantly granulocytes, but with a significant left shift. The findings are consistent with a myeloproliferative disorder, most likely chronic myeloid leukemia. CML: BCR/ABL positive. 2. She has severe osteoporosis with multiple vertebral compression fractures, including a recent burst type fracture at T12. 3. She has evidence of degenerative disease in the lumbar spine and previous vertebral compression compression fracture at L3 with associated lumbar central canal stenosis. 4. She underwent radiation for cervical cancer in 1983, and she was previously diagnosed with radiation plexitis. Her other and medical illnesses include: 5. Hypertension. 6. Hyperlipidemia. 7. GERD. 8. Peripheral neuropathy. 9. She has a history of recurrent urinary tract infections. The laboratory findings and clinical implications were reviewed with Ms Cristobal and her daughter per Dr Brown on october 02, 2019. While some component of the elevated blood counts may be reactive in association with acute illness, the findings are clearly consistent with a myeloproliferative disorder, most likely chronic myeloid leukemia. Further workup resulted in a positive BCR/ABL1 fusion. With the BCR/ABL1 being positive and her elevated blood counts, it was recommended that she begin a trial of nilotinib. She began nilotinib on 10/23/2019. She has tolerated this well thus far. Her dose was verified twice today and she states she had started taking the nilotinib (Tasigna) ONE 150 mg tablet twice daily. Her original prescription was 150 mg TWO tablets twice daily. She is tolerating it well and her blood counts have responded well. She is only taking the nilotinib 150 mg daily and her blood counts continue to be stable/improved. Plan: 1. Proceed with nilotinib @ 150 mg DAILY. 2. Continue Zofran 4 mg 1 or 2 every 6-8 hours as needed for nausea as indicated. 3. AVOID GRAPEFRUIT PRODUCTS WITH NILOTINIB. 4. Labs from 12/10/2019 were reviewed in detail and discussed with Ms. Cristobal and a copy will be mailed to them. White count is 6.5 hemoglobin 14.3 platelets 242,000. Her platelet count on October 29, 2019 was 1,000,071 and her hemoglobin is 15.0 white count that time was 24.1. She states she is scheduled to have labs drawn tomorrow. We will review those and mail her a copy. If they continue to be stable with plan to check her labs monthly. 5. She denies any UTI symptoms. 6. We will plan to see her back in 4 weeks with CBC, CMP, LDH. Her Qtc from 11-09-2019 was 449-it was 429 on 10/29/2019 and 453 on 10/18/2019 study. No dose changes required unless Qtc is > 480 msec... She will just need EKG's prn. 7. Ms Cristobal was instructed to call us in the interim if questions or problems arise. *. This tele-visit consisted of 15 minutes. Signed By: Yuri Springer-, [facility] Dewayne Brown MD <<Signature on File>>
== END 2019-12-26 23:59 | disposition home or self-care (01) ==
LOC: ONCMED 10:30
PROVIDERS: Internal Medicine Medical Oncology; PCP Internal Medicine; Visit Provider Nurse Practitioner
DX: C92.10 Chronic myeloid leukemia, BCR/ABL-positive, not having achieved remission (principal); M48.55XD Collapsed vertebra, not elsewhere classified, thoracolumbar region, subsequent encounter for fracture with routine healing; M48.061 Spinal stenosis, lumbar region without neurogenic claudication; I10 Essential (primary) hypertension; E78.5 Hyperlipidemia, unspecified; K21.9 Gastro-esophageal reflux disease without esophagitis; G62.9 Polyneuropathy, unspecified; Z87.440 Personal history of urinary (tract) infections
CPT/HCPCS: 80053; 83615; 85025

== ENCOUNTER 2020-01-28 11:21 | Outpatient (CLI) | payer MEDICARE, MEDICAID, SELFPAY ==
[2020-01-28 11:49] LABS: Basophils # 0.1 10^3/uL (0.0-0.1); Basophils % 0.6 %; Eosinophils # 0.3 10^3/uL (0.0-0.8); Eosinophils % 3.5 %; Hematocrit 47.9 % (37.0-47.0); Hemoglobin 15.8 g/dL (11.5-15.3); Lymphocytes # 2.3 10^3/uL (0.8-4.8); Lymphocytes % 26.7 %; Mean Corpuscular Hemoglobin 28.1 pg (28.0-34.0); Mean Corpuscular Volume 85.1 fL (81-99); Mean Platelet Volume 10.1 fL (7.4-10.4); Monocytes # 0.6 10^3/uL (0.2-0.9); Monocytes % 7.3 %; Neutrophils # 5.29 10^3/uL (1.8-7.7); Neutrophils % 61.2 %; Nucleated Red Blood Cells % 0 %; Platelet Count 203 10^3/cmm (130-400); Red Blood Count 5.63 10^6/uL (4.1-5.3); Red Cell Distribution Width 13.8 % (12.1-15.1); White Blood Count 8.6 10^3/uL (4.0-10.0)
[2020-01-28 12:05] LABS: Alanine Aminotransferase 20 U/L (0-33); Albumin Level 4.4 g/dL (3.5-5.2); Alkaline Phosphatase 163 IU/L (35-105); Anion Gap 12.1 (5-19); Aspartate Amino Transferase 19 U/L (0-32); Blood Urea Nitrogen 9 mg/dL (8-23); Calcium 9.1 mg/dL (8.5-10.5); Carbon Dioxide 28 mmol/L (22-29); Chloride 95 mmol/L (98-107); Globulin 2.7 g/dL (1.3-4.6); Glomerular Filtration Rate 158.7 mL/min (90-130); Glucose 92 mg/dL (65-115); Osmolality Calculated 270 mOsm/kg (285-295); Potassium 4.1 mmol/L (3.5-5.1); Sodium 131 mmol/L (136-145); Total Bilirubin 0.4 mg/dL (0.15-1.2); Total Protein 7.1 g/dL (6.6-8.7)
--- NOTE | 2020-02-01 07:47 | ONC FU_ITS ---
Dr. Brown Patient Follow-Up Note Patient: Mary Cristobal Unit #: [id number]: 1950 Dicatated By: Dewayne Brown M.D.Date of Visit:Jan 28, 2020 Onc Med Follow-up/Prog Note Chief Complaint: Chronic myeloid leukemia. History of Present Illness: This is a 69 year-old woman with chronic myeloid leukemia. She has longstanding osteoporosis with associated vertebral compression fractures, complicated by degenerative disease of the spine and lumbar stenosis. She has had chronic back pain and limited mobility. She has additional history of having undergone radiation for cervical cancer 37 years ago. 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 Grey. On 09/19/2019 she was admitted to the hospital with increased back pain in association with an acute vertebral fracture at T12. Lumbar spine CT confirmed a mild burst fracture at T12 with 4.4 mm retropulsion and mild contact on the ventral thecal sac. There was a remote appearing 50% burst fracture of L3 resulting in moderate central and bilateral subarticular recess stenosis. There was moderate to severe central, foraminal, and subarticular recess stenosis at L3-4, and there was moderate to severe central and bilateral subarticular recess stenosis and mild left foraminal stenosis at L4-5. Her initial CBC showed normal hemoglobin at 13.6 g with hematocrit 41.7%. The white blood cell count was significantly elevated at 44,200 and the platelet count also was significantly elevated at 1,144,000. The automated differential included 74. % neutrophils, 4% lymphocytes, 1% monocytes, less than 1% eosinophils, and 1% basophils. Her repeat CBC the following day showed similar findings with hemoglobin 13.8 g, white blood cell count 59,200, and platelet count 1,090,000. The manual differential included 66% segmented neutrophils, 23% band neutrophils, 4% myelocytes, 2% metamyelocytes, 4% lymphocytes, and 1% monocytes. Her comprehensive metabolic profile was unremarkable except for slightly elevated alkaline phosphatase. During the hospitalization she was given antibiotic therapy for urinary tract infection. She otherwise had symptomatic management. She was discharged home on 09/24/2019. I had seen her initially on 10/01/2019. The findings were suspicious for chronic myeloid leukemia or other myeloproliferative disorder. Her bone marrow aspiration/biopsy on 10/18/2019 showed hypercellular marrow, estimated at 70 to 90%. There was myeloid and megakaryocytic hyperplasia. Blasts were not significantly increased, estimated at 1 to 2% of the total cellularity. There was no significant reticulin fibrosis noted. Iron stores were noted to be decreased. The FISH analysis was positive for the BCR/ABL 1 fusion, consistent with chronic myeloid leukemia. On 11/05/2019 she began treatment with nilotinib 300 mg twice daily. Her other medical illnesses include hypertension, hyperlipidemia, GERD, peripheral neuropathy, degenerative arthritis/degenerative disease of the spine, and severe osteoporosis with multiple vertebral compression fractures. She has had recurrent urinary tract infections. She has a history of having undergone radiation for cervical cancer in 1983, and she also has a diagnosis of radiation plexitis. She is a non-smoker. She is seen for a follow-up visit. She has very limited activity due to her spine issues. However, she does complain that she is feeling more tired. She gets wore out after taking a shower or any other activity. Her ECOG score is 3. Her appetite lately has been a little better. She does not have fever, night sweats, or hot flashes. She sometimes has cough. She does not complain of shortness of breath or chest pain. She says she has quite a bit of heartburn, though her medication does help somewhat with that. She has no other GI or complaints. She has chronic pain in her back and legs, and she has numbness in her legs and feet. Medications: amLODIPine Besylate 1 Tablet (of 10 mg) Oral daily, Aspirin 1 Tablet (of 81 mg) Tablet, enteric coated Oral daily, Lisinopril 1 Tablet (of 40 mg) Oral daily, Omeprazole 1 Capsule (of 20 mg) Capsule Delayed Release Oral daily, OXcarbazepine 1 Tablet (of 600 mg) Oral at bedtime, oxyCODONE HCl 1 Tablet (of 15 mg) Oral q 8 hours PRN, Simvastatin 1 Tablet (of 40 mg) Oral daily, Tasigna 1 Capsule (of 150 mg) Oral daily, Vitamin D2 1 Tablet (of 50 mcg ) Oral q 7 days Allergies: Demerol and Morphine Sulfate. Review of Systems: Constitutional - Her energy is the same. She has limited activity due to weakness in her legs. She is nonambulatory. She gets wore out with showering or other activity. Her appetite is better now. She does not have fever, night sweats, or hot flashes. ECOG score is 3, ENMT - No sinus congestion/drainage. No mouth sores. No sore throat or difficulty swallowing, Hematologic/Lymphatic - She bruises very easily, Respiratory - No shortness of breath. She sometimes has a little cough. No pleuritic pain or hemoptysis, Cardiovascular - No angina pain. No palpitations, Gastrointestinal - No nausea or vomiting. She has quite a bit of heartburn, but her medication does help. No diarrhea or constipation. No blood in the stool or black stools, Genitourinary (F) - No dysuria or hematuria. No urinary frequency. No urgency or incontinence, Musculoskeletal - She has chronic pain in her back and legs, Integumentary - No skin rash, Neurologic - No headache or dizziness. She has numbness in her legs and feet. No other focal neurologic symptoms, Psychiatric - No anxiety or depression. No insomnia. Vital Signs: Performed on Jan 28, 2020 12:14 Height - 68.00 in Temperature - 97.9 F (LOW) Pulse - 88 /min Respiration - 16 /min BP - 166/76 mm(hg) (HIGH) O2 Sat - 99 % Pain - 4 Physical Examination: Constitutional - She looks pretty good generally, but her mobility is limited, Eyes - Sclerae nonicteric. Conjunctivae clear, ENMT - No lesions noted in the oral cavity, Hematologic/Lymphatic - No cervical, clavicular, or axillary adenopathy, Respiratory - Lungs are clear with good air movement bilaterally, Cardiovascular - Heart rhythm is regular. There is a I/ systolic murmur. There is no gallop or rub noted, Abdomen - Soft. Liver and spleen are not enlarged. There is no abdominal mass or ascites noted and there is no inguinal adenopathy, Extremities - Slight edema, Integumentary - No skin eruption, Neurologic - She has weakness in both legs. Lab/Imaging: Test performed on Jan 28, 2020 11:35 Sodium 131 mmol/L Potassium 4.1 mmol/L Chloride 95 mmol/L CO2 28 mmol/L Anion Gap 12.1 BUN 9 mg/dL Creatinine 0.4 mg/dL Cr Clearance (Est) 134.9500 mL/min eGFR 158.7 mL/min Glucose 92 mg/dL Osmolality - Calculated 270 mOsm/kg Calcium 9.1 mg/dL Protein, Total 7.1 g/dL Albumin 4.4 g/dL Globulin 2.7 g/dL Bilirubin, Total 0.4 mg/dL ALT (SGPT) 20 U/L AST (SGOT) 19 U/L Alkaline Phosphatase 163 IU/L WBC 8.6 10 3/uL RBC 5.63 10 6/uL HGB 15.8 g/dL HCT 47.9 % MCV 85.1 fL MCH 28.1 pg MCHC 33.0 g/dL RDW 13.8 % Platelet Count 203 10 3/cmm MPV 10.1 fL Neutrophils 5.29 10 3/uL Lymphocytes 2.3 10 3/uL Monocytes 0.6 10 3/uL Eosinophils 0.3 10 3/uL Basophils 0.1 10 3/uL Neutrophil % 61.2 % Lymphocyte % 26.7 % Monocyte % 7.3 % Eosinophil % 3.5 % Basophils % 0.6 % NRBC % 0 % Impression: 1. Patient with chronic myeloid leukemia, BCR/abl1+ by FISH, confirmed by bone marrow aspiration/biopsy on 10/18/2019. 2. She has severe osteoporosis with multiple vertebral compression fractures, including a recent burst type fracture at T12. 3. She has evidence of degenerative disease in the lumbar spine and previous vertebral compression compression fracture at L3 with associated lumbar central canal stenosis. 4. She underwent radiation for cervical cancer in 1983, and she was previously diagnosed with radiation plexitis. Her other and medical illnesses include: 5. Hypertension. 6. Hyperlipidemia. 7. GERD. 8. Peripheral neuropathy. 9. She has a history of recurrent urinary tract infections. In October 2019 she began treatment with nilotinib 300 mg twice daily. Thus far she has tolerated it well, and she appears to be showing a good clinical response. Plan: She will continue nilotinib 300 mg bid. She will need a quantitative PCR for BCR/abl, and that will be done by home lab. Blood counts will be monitored monthly. I will see her again in 3 months. She will be given a flu shot today. Signed By: Dewayne Brown M.D. <<Signature on File>>
== END 2020-01-28 11:22 | disposition home or self-care (01) ==
LOC: ONCMED 11:25
PROVIDERS: PCP Internal Medicine; Visit Provider Internal Medicine Medical Oncology
DX: C92.10 Chronic myeloid leukemia, BCR/ABL-positive, not having achieved remission (principal); D72.829 Elevated white blood cell count, unspecified; M81.0 Age-related osteoporosis without current pathological fracture; S22.081A Stable burst fracture of T11-T12 vertebra, initial encounter for closed fracture; M51.36 Other intervertebral disc degeneration, lumbar region; M48.061 Spinal stenosis, lumbar region without neurogenic claudication; G54.0 Brachial plexus disorders; I10 Essential (primary) hypertension; E78.5 Hyperlipidemia, unspecified; K21.9 Gastro-esophageal reflux disease without esophagitis; G62.9 Polyneuropathy, unspecified; Z87.440 Personal history of urinary (tract) infections; Z85.41 Personal history of malignant neoplasm of cervix uteri
CPT/HCPCS: 36415; 80053; 85025; 99214

== ENCOUNTER 2020-01-30 12:15 | Outpatient (CLI) | payer MEDICARE, MEDICAID, SELFPAY ==
[2020-02-02 22:23] LABS: BCR ABL1 (IS) 2.121 (0.000); P210 BCR ALB1 DETECTED; Prior Results NG; Source V
== END 2020-01-30 12:16 | disposition home or self-care (01) ==
LOC: ONCMED 17:07
PROVIDERS: PCP Internal Medicine; Visit Provider Nurse Practitioner
DX: C92.10 Chronic myeloid leukemia, BCR/ABL-positive, not having achieved remission (principal); D72.829 Elevated white blood cell count, unspecified
CPT/HCPCS: 81206

== ENCOUNTER 2020-05-22 10:13 | Outpatient (CLI) | payer MEDICARE, MEDICAID, SELFPAY ==
[2020-05-22 11:19] LABS: Basophils # 0.1 10^3/uL (0.0-0.1); Eosinophils # 0.4 10^3/uL (0.0-0.8); Eosinophils % 4.8 %; Hematocrit 47.1 % (37.0-47.0); Hemoglobin 15.6 g/dL (11.5-15.3); Lymphocytes # 2.4 10^3/uL (0.8-4.8); Lymphocytes % 33.5 %; Mean Corpuscular HGB Conc 33.1 g/dL (30.0-36.0); Mean Corpuscular Hemoglobin 29.9 pg (28.0-34.0); Mean Corpuscular Volume 90.4 fL (81-99); Mean Platelet Volume 10.8 fL (7.4-10.4); Monocytes # 0.6 10^3/uL (0.2-0.9); Neutrophils % 50.6 %; Nucleated Red Blood Cells % 0 %; Platelet Count 190 10^3/cmm (130-400); Red Blood Count 5.21 10^6/uL (4.1-5.3); Red Cell Distribution Width 12.8 % (12.1-15.1); White Blood Count 7.3 10^3/uL (4.0-10.0)
[2020-05-22 12:43] LABS: Alanine Aminotransferase 20 U/L (0-33); Albumin Level 4.5 g/dL (3.5-5.2); Alkaline Phosphatase 146 IU/L (35-105); Aspartate Amino Transferase 17 U/L (0-32); Blood Urea Nitrogen 13 mg/dL (8-23); Calcium 9.2 mg/dL (8.5-10.5); Carbon Dioxide 29 mmol/L (22-29); Chloride 98 mmol/L (98-107); Globulin 2.7 g/dL (1.3-4.6); Glomerular Filtration Rate 158.7 mL/min (90-130); Glucose 81 mg/dL (65-115); Osmolality Calculated 277 mOsm/kg (285-295); Sodium 134 mmol/L (136-145); Total Bilirubin 0.5 mg/dL (0.15-1.2); Total Protein 7.2 g/dL (6.6-8.7)
[2020-05-22 12:50] LABS: Anion Gap 11.2 (5-19); Potassium 4.2 mmol/L (3.5-5.1)
--- NOTE | 2020-05-22 19:22 | ONC FU_ITS ---
Dr. Brown Patient Follow-Up Note Patient: Mary Cristobal Unit #: [id number]: 1950 Dicatated By: Dewayne Brown M.D.Date of Visit:May 22, 2020 Onc Med Follow-up/Prog Note Chief Complaint: Chronic myeloid leukemia. History of Present Illness: This is a 69 year-old woman with chronic myeloid leukemia. She has longstanding osteoporosis with associated vertebral compression fractures, complicated by degenerative disease of the spine and lumbar stenosis. She has had chronic back pain and limited mobility. She has additional history of having undergone radiation for cervical cancer 37 years ago. 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 Grey. On 09/19/2019 she was admitted to the hospital with increased back pain in association with an acute vertebral fracture at T12. Lumbar spine CT confirmed a mild burst fracture at T12 with 4.4 mm retropulsion and mild contact on the ventral thecal sac. There was a remote appearing 50% burst fracture of L3 resulting in moderate central and bilateral subarticular recess stenosis. There was moderate to severe central, foraminal, and subarticular recess stenosis at L3-4, and there was moderate to severe central and bilateral subarticular recess stenosis and mild left foraminal stenosis at L4-5. Her initial CBC showed normal hemoglobin at 13.6 g with hematocrit 41.7%. The white blood cell count was significantly elevated at 44,200 and the platelet count also was significantly elevated at 1,144,000. The automated differential included 74. % neutrophils, 4% lymphocytes, 1% monocytes, less than 1% eosinophils, and 1% basophils. Her repeat CBC the following day showed similar findings with hemoglobin 13.8 g, white blood cell count 59,200, and platelet count 1,090,000. The manual differential included 66% segmented neutrophils, 23% band neutrophils, 4% myelocytes, 2% metamyelocytes, 4% lymphocytes, and 1% monocytes. Her comprehensive metabolic profile was unremarkable except for slightly elevated alkaline phosphatase. During the hospitalization she was given antibiotic therapy for urinary tract infection. She otherwise had symptomatic management. She was discharged home on 09/24/2019. I had seen her initially on 10/01/2019. The findings were suspicious for chronic myeloid leukemia or other myeloproliferative disorder. Her bone marrow aspiration/biopsy on 10/18/2019 showed hypercellular marrow, estimated at 70 to 90%. There was myeloid and megakaryocytic hyperplasia. Blasts were not significantly increased, estimated at 1 to 2% of the total cellularity. There was no significant reticulin fibrosis noted. Iron stores were noted to be decreased. The FISH analysis was positive for the BCR/ABL 1 fusion, consistent with chronic myeloid leukemia. Her quantitative PCR was 48.737%. On 11/05/2019 she began treatment with nilotinib, initially at 300 mg twice daily. Her other medical illnesses include hypertension, hyperlipidemia, GERD, peripheral neuropathy, degenerative arthritis/degenerative disease of the spine, and severe osteoporosis with multiple vertebral compression fractures. She has had recurrent urinary tract infections. She has a history of having undergone radiation for cervical cancer in 1983, and she also has a diagnosis of radiation plexitis. She is a non-smoker. INTERIM HISTORY: As of her follow-up visit in January 2020 her quantitative PCR for BCR/abl, but it was down to 2.121% compared to the pretreatment level of 48.737%. During that time, the dosage of her nilotinib had been reduced to 150 mg daily. The reasons for that are not entirely clear to me. She is seen for a follow-up visit. She has been feeling pretty good generally. She has limited activity, which is chronic. She is worn out just taking a shower. Her ECOG score is 3. Her appetite generally has been better. She does not have fever or night sweats. She has shortness of breath with activity. She has cough productive of clear sputum, but that has been going on for years. She does not complain of chest pain. She has not had nausea or abdominal pain. She does have some heartburn, but it is pretty well managed with her medication. She has had constipation intermittently, but that also has been going on for years. She has no complaints. She has chronic pain in her back and legs and she has chronic leg weakness. Medications: amLODIPine Besylate 1 Tablet (of 10 mg) Oral daily, Aspirin 1 Tablet (of 81 mg) Tablet, enteric coated Oral daily, Lisinopril 1 Tablet (of 40 mg) Oral daily, Omeprazole 1 Capsule (of 20 mg) Capsule Delayed Release Oral daily, OXcarbazepine 1 Tablet (of 600 mg) Oral at bedtime, oxyCODONE HCl 1 Tablet (of 15 mg) Oral q 8 hours PRN, Simvastatin 1 Tablet (of 40 mg) Oral daily, Tasigna 1 Capsule (of 150 mg) Oral daily, Vitamin D2 1 Tablet (of 50 mcg ) Oral q 7 days Allergies: Demerol and Morphine Sulfate. Vital Signs: Performed on May 22, 2020 11:31 Height - 68.00 in Temperature - 98.6 F Pulse - 87 /min Respiration - 18 /min BP - 141/80 mm(hg) (HIGH) O2 Sat - 98 % Pain - 3 Fatigue - 3 Physical Examination: Constitutional - She looks pretty good generally, Eyes - Sclerae nonicteric. Conjunctivae clear, ENMT - No lesions noted in the oral cavity, Hematologic/Lymphatic - No cervical, clavicular, or axillary adenopathy, Respiratory - Lungs are clear with good air movement bilaterally, Cardiovascular - Heart rhythm is regular. There is a I/ systolic murmur. There is no gallop or rub noted, Abdomen - Soft. Liver and spleen are not enlarged. There is no abdominal mass or ascites noted and there is no inguinal adenopathy, Extremities - No edema, Integumentary - No skin eruption, Neurologic - She has chronic weakness in both legs. Lab/Imaging: Test performed on May 22, 2020 10:53 Sodium 134 mmol/L Potassium 4.2 mmol/L Chloride 98 mmol/L CO2 29 mmol/L Anion Gap 11.2 BUN 13 mg/dL Creatinine 0.4 mg/dL Cr Clearance (Est) 134.9500 mL/min eGFR 158.7 mL/min Glucose 81 mg/dL Osmolality - Calculated 277 mOsm/kg Calcium 9.2 mg/dL Protein, Total 7.2 g/dL Albumin 4.5 g/dL Globulin 2.7 g/dL Bilirubin, Total 0.5 mg/dL ALT (SGPT) 20 U/L AST (SGOT) 17 U/L Alkaline Phosphatase 146 IU/L WBC 7.3 10 3/uL RBC 5.21 10 6/uL HGB 15.6 g/dL HCT 47.1 % MCV 90.4 fL MCH 29.9 pg MCHC 33.1 g/dL RDW 12.8 % Platelet Count 190 10 3/cmm MPV 10.8 fL Neutrophils 3.70 10 3/uL Lymphocytes 2.4 10 3/uL Monocytes 0.6 10 3/uL Eosinophils 0.4 10 3/uL Basophils 0.1 10 3/uL Neutrophil % 50.6 % Lymphocyte % 33.5 % Monocyte % 8.0 % Eosinophil % 4.8 % Basophils % 1.0 % NRBC % 0 % Problem List: 1. Patient with chronic myeloid leukemia, BCR/abl1+ by FISH, confirmed by bone marrow aspiration/biopsy on 10/18/2019. 2. She has severe osteoporosis with multiple vertebral compression fractures, including a recent burst type fracture at T12. 3. She has evidence of degenerative disease in the lumbar spine and previous vertebral compression compression fracture at L3 with associated lumbar central canal stenosis. 4. She underwent radiation for cervical cancer in 1983, and she was previously diagnosed with radiation plexitis. 5. Hypertension. 6. Hyperlipidemia. 7. GERD. 8. Peripheral neuropathy. 9. She has a history of recurrent urinary tract infections. Problems Addressed with this Encounter and Plan: Patient with chronic myeloid leukemia, BCR/abl1+ by FISH, confirmed by bone marrow aspiration/biopsy on 10/18/2019. In October 2019 she began treatment with nilotinib 300 mg twice daily. She initially was tolerating it well. As of her follow-up visit in January 2020 the quantitative PCR had decreased to 2.121% compared to the pretreatment level of 48.737%. During that time her nilotinib dosage has been reduced to 150 mg daily. At this point her blood counts remain in normal range and her clinical status appears stable. The current PCR study is pending. Her nilotinib dosage will be adjusted according to those results. I will tentatively plan a follow-up visit again in 3 months. Signed By: Dewayne Brown M.D. <<Signature on File>>
[2020-05-24 22:32] LABS: BCR ABL1 (IS) 0.146 (0.000); P210 BCR ALB1 DETECTED; Prior Results NG
== END 2020-05-22 10:14 | disposition home or self-care (01) ==
LOC: ONCMED 10:16
PROVIDERS: PCP Internal Medicine; Visit Provider Internal Medicine Medical Oncology
DX: C92.10 Chronic myeloid leukemia, BCR/ABL-positive, not having achieved remission (principal); M81.0 Age-related osteoporosis without current pathological fracture; M51.36 Other intervertebral disc degeneration, lumbar region; M48.061 Spinal stenosis, lumbar region without neurogenic claudication; I10 Essential (primary) hypertension; E78.5 Hyperlipidemia, unspecified; K21.9 Gastro-esophageal reflux disease without esophagitis; G62.9 Polyneuropathy, unspecified; Z87.440 Personal history of urinary (tract) infections; Z85.41 Personal history of malignant neoplasm of cervix uteri; Z79.899 Other long term (current) drug therapy
CPT/HCPCS: 36415; 80053; 81206; 85025; 99214

== ENCOUNTER 2020-08-05 13:04 | Outpatient (CLI) | payer MEDICARE, MEDICAID, SELFPAY ==
[2020-08-05 13:53] LABS: Basophils # 0.1 10^3/uL (0.0-0.1); Basophils % 0.6 %; Eosinophils # 0.5 10^3/uL (0.0-0.8); Eosinophils % 6.3 %; Hemoglobin 13.9 g/dL (11.5-15.3); Lymphocytes # 1.7 10^3/uL (0.8-4.8); Mean Corpuscular HGB Conc 33.1 g/dL (30.0-36.0); Mean Corpuscular Hemoglobin 29.9 pg (28.0-34.0); Mean Corpuscular Volume 90.3 fL (81-99); Mean Platelet Volume 10.4 fL (7.4-10.4); Monocytes # 0.8 10^3/uL (0.2-0.9); Monocytes % 9.6 %; Neutrophils # 5.11 10^3/uL (1.8-7.7); Nucleated Red Blood Cells % 0 %; Platelet Count 187 10^3/cmm (130-400); Red Blood Count 4.65 10^6/uL (4.1-5.3); Red Cell Distribution Width 13.2 % (12.1-15.1); White Blood Count 8.2 10^3/uL (4.0-10.0)
[2020-08-05 14:16] LABS: Alanine Aminotransferase 19 U/L (0-33); Alkaline Phosphatase 123 IU/L (35-105); Anion Gap 11.2 (5-19); Aspartate Amino Transferase 17 U/L (0-32); Blood Urea Nitrogen 12 mg/dL (8-23); Calcium 8.7 mg/dL (8.5-10.5); Carbon Dioxide 29 mmol/L (22-29); Chloride 96 mmol/L (98-107); Globulin 2.3 g/dL (1.3-4.6); Glomerular Filtration Rate 158.3 mL/min (90-130); Glucose 90 mg/dL (65-115); Osmolality Calculated 273 mOsm/kg (285-295); Potassium 4.2 mmol/L (3.5-5.1); Sodium 132 mmol/L (136-145); Total Bilirubin 0.5 mg/dL (0.15-1.2); Total Protein 6.3 g/dL (6.6-8.7)
--- NOTE | 2020-08-09 12:37 | ONC FU_ITS ---
Dr. Brown Patient Follow-Up Note Patient: Mary Cristobal Unit #: [id number]: 1950 Dicatated By: Dewayne Brown M.D.Date of Visit:August 05, 2020 Onc Med Follow-up/Prog Note Chief Complaint: Chronic myeloid leukemia. History of Present Illness: This is a 70 year-old woman with chronic myeloid leukemia. She has longstanding osteoporosis with associated vertebral compression fractures, complicated by degenerative disease of the spine and lumbar stenosis. She has had chronic back pain and limited mobility. She has additional history of having undergone radiation for cervical cancer 37 years ago. 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 Grey. On 09/19/2019 she was admitted to the hospital with increased back pain in association with an acute vertebral fracture at T12. Lumbar spine CT confirmed a mild burst fracture at T12 with 4.4 mm retropulsion and mild contact on the ventral thecal sac. There was a remote appearing 50% burst fracture of L3 resulting in moderate central and bilateral subarticular recess stenosis. There was moderate to severe central, foraminal, and subarticular recess stenosis at L3-4, and there was moderate to severe central and bilateral subarticular recess stenosis and mild left foraminal stenosis at L4-5. Her initial CBC showed normal hemoglobin at 13.6 g with hematocrit 41.7%. The white blood cell count was significantly elevated at 44,200 and the platelet count also was significantly elevated at 1,144,000. The automated differential included 74. % neutrophils, 4% lymphocytes, 1% monocytes, less than 1% eosinophils, and 1% basophils. Her repeat CBC the following day showed similar findings with hemoglobin 13.8 g, white blood cell count 59,200, and platelet count 1,090,000. The manual differential included 66% segmented neutrophils, 23% band neutrophils, 4% myelocytes, 2% metamyelocytes, 4% lymphocytes, and 1% monocytes. Her comprehensive metabolic profile was unremarkable except for slightly elevated alkaline phosphatase. During the hospitalization she was given antibiotic therapy for urinary tract infection. She otherwise had symptomatic management. She was discharged home on 09/24/2019. I had seen her initially on 10/01/2019. The findings were suspicious for chronic myeloid leukemia or other myeloproliferative disorder. Her bone marrow aspiration/biopsy on 10/18/2019 showed hypercellular marrow, estimated at 70 to 90%. There was myeloid and megakaryocytic hyperplasia. Blasts were not significantly increased, estimated at 1 to 2% of the total cellularity. There was no significant reticulin fibrosis noted. Iron stores were noted to be decreased. The FISH analysis was positive for the BCR/ABL 1 fusion, consistent with chronic myeloid leukemia. Her quantitative PCR was 48.737%. On 11/05/2019 she began treatment with nilotinib, initially at 300 mg twice daily. Her other medical illnesses include hypertension, hyperlipidemia, GERD, peripheral neuropathy, degenerative arthritis/degenerative disease of the spine, and severe osteoporosis with multiple vertebral compression fractures. She has had recurrent urinary tract infections. She has a history of having undergone radiation for cervical cancer in 1983, and she also has a diagnosis of radiation plexitis. She is a non-smoker. INTERIM HISTORY: As of her follow-up visit in January 2020 her quantitative PCR for BCR/abl, but it was down to 2.121% compared to the pretreatment level of 48.737%. During that time, the dosage of her nilotinib had been reduced to 150 mg daily. Her repeat PCR on 05/22/2020 showed further decrease in the BCR/abl to 0.146%. She is seen for a follow-up visit. She has continued the nilotinib at 150 mg daily, and she indicates that she has been feeling more tired lately. Her activity remains very limited, as she is essentially nonambulatory. ECOG score is 3. She has good appetite. She has no fever or night sweats. She has had no mouth sores. She has just occasional cough. She does get out of breath easily. She does not complain of chest pain. She has had on going problems with bowel function for years and years, and that is unchanged. She has no other GI or complaints. She has pain in her back and legs, which seems to be getting worse. She is also having pain in her right arm from the shoulder down to the elbow. She does not complain of headache or dizziness. She has numbness/tingling in her feet. Medications: amLODIPine Besylate 1 Tablet (of 10 mg) Oral daily, Aspirin 1 Tablet (of 81 mg) Tablet, enteric coated Oral daily, Lisinopril 1 Tablet (of 40 mg) Oral daily, Omeprazole 1 Capsule (of 20 mg) Capsule Delayed Release Oral daily, OXcarbazepine 1 Tablet (of 600 mg) Oral at bedtime, oxyCODONE HCl 1 Tablet (of 15 mg) Oral q 8 hours PRN, Simvastatin 1 Tablet (of 40 mg) Oral daily, Tasigna 1 Capsule (of 150 mg) Oral daily, Vitamin D2 1 Tablet (of 50 mcg ) Oral q 7 days Allergies: Demerol and Morphine Sulfate. Vital Signs: Performed on August 05, 2020 15:13 Height - 68.00 in Temperature - 99.4 F (HIGH) Pulse - 87 /min Respiration - 18 /min BP - 127/77 mm(hg) O2 Sat - 96 % Pain - 5 Fatigue - 6 Physical Examination: Constitutional - She looks pretty good generally, Eyes - Sclerae nonicteric. Conjunctivae clear, ENMT - No lesions noted in the oral cavity, Hematologic/Lymphatic - No cervical, clavicular, or axillary adenopathy, Respiratory - Lungs are clear with good air movement bilaterally, Cardiovascular - Heart rhythm is regular. There is a I/ systolic murmur. There is no gallop or rub noted, Abdomen - Soft. Liver and spleen are not enlarged. There is no abdominal mass or ascites noted and there is no inguinal adenopathy, Extremities - Slight edema. There is limited range of motion at the right shoulder joint, Neurologic - She has chronic weakness in both legs. Lab/Imaging: Test performed on August 05, 2020 13:22 Sodium 132 mmol/L Potassium 4.2 mmol/L Chloride 96 mmol/L CO2 29 mmol/L Anion Gap 11.2 BUN 12 mg/dL Creatinine 0.4 mg/dL Cr Clearance (Est) 133.0700 mL/min eGFR 158.3 mL/min Glucose 90 mg/dL Osmolality - Calculated 273 mOsm/kg Calcium 8.7 mg/dL Protein, Total 6.3 g/dL Albumin 4.0 g/dL Globulin 2.3 g/dL Bilirubin, Total 0.5 mg/dL ALT (SGPT) 19 U/L AST (SGOT) 17 U/L Alkaline Phosphatase 123 IU/L WBC 8.2 10 3/uL RBC 4.65 10 6/uL HGB 13.9 g/dL HCT 42.0 % MCV 90.3 fL MCH 29.9 pg MCHC 33.1 g/dL RDW 13.2 % Platelet Count 187 10 3/cmm MPV 10.4 fL Neutrophils 5.11 10 3/uL Lymphocytes 1.7 10 3/uL Monocytes 0.8 10 3/uL Eosinophils 0.5 10 3/uL Basophils 0.1 10 3/uL Neutrophil % 62.0 % Lymphocyte % 21.0 % Monocyte % 9.6 % Eosinophil % 6.3 % Basophils % 0.6 % NRBC % 0 % Problem List: 1. Patient with chronic myeloid leukemia, BCR/abl1+ by FISH, confirmed by bone marrow aspiration/biopsy on 10/18/2019. 2. She has severe osteoporosis with multiple vertebral compression fractures, including a recent burst type fracture at T12. 3. She has evidence of degenerative disease in the lumbar spine and previous vertebral compression compression fracture at L3 with associated lumbar central canal stenosis. 4. She underwent radiation for cervical cancer in 1983, and she was previously diagnosed with radiation plexitis. 5. Hypertension. 6. Hyperlipidemia. 7. GERD. 8. Peripheral neuropathy. 9. She has a history of recurrent urinary tract infections. Problems Addressed with this Encounter and Plan: 1. Patient with chronic myeloid leukemia, BCR/abl1+ by FISH, confirmed by bone marrow aspiration/biopsy on 10/18/2019. In October 2019 she began treatment with nilotinib 300 mg twice daily. She initially was tolerating it well. As of her follow-up visit in January 2020 the quantitative PCR had decreased to 2.121% compared to the pretreatment level of 48.737%. During that time her nilotinib dosage was reduced to 150 mg daily, but there was continued decline in her PCR to 0.146% on 05/22/2020. Recently she has complained of increased fatigue. Her current PCR study is pending, but her blood counts remain normal. At least for now she will continue the nilotinib at 150 mg daily. She will be scheduled for a follow-up visit in 3 months. 2. She has had chronic pain in the back and lower extremities, which seems to be getting worse. The cause for this is uncertain. She also has developed new pain in the right shoulder and arm, she does have a significant limitation in the range of motion at her right shoulder joint. I did talk to her about the possibility of seeing a physical therapist or arranging for a local injection to the right shoulder. At least for now she declines either option. Signed By: Dewayne Brown M.D. <<Signature on File>>
== END 2020-08-05 13:05 | disposition home or self-care (01) ==
LOC: ONCMED 13:08
PROVIDERS: PCP Internal Medicine; Visit Provider Internal Medicine Medical Oncology
DX: C92.10 Chronic myeloid leukemia, BCR/ABL-positive, not having achieved remission (principal); M81.0 Age-related osteoporosis without current pathological fracture; M51.36 Other intervertebral disc degeneration, lumbar region; M48.061 Spinal stenosis, lumbar region without neurogenic claudication; I10 Essential (primary) hypertension; E78.5 Hyperlipidemia, unspecified; K21.9 Gastro-esophageal reflux disease without esophagitis; G62.9 Polyneuropathy, unspecified; N39.0 Urinary tract infection, site not specified; Z79.899 Other long term (current) drug therapy; Z92.3 Personal history of irradiation; Z92.21 Personal history of antineoplastic chemotherapy
CPT/HCPCS: 36415; 80053; 85025; 99214

== ENCOUNTER 2020-08-19 16:58 | Outpatient (CLI) | payer MEDICARE, MEDICAID, SELFPAY ==
[2020-08-25 01:22] LABS: BCR ABL1 (IS) 0.034 (0.000); P210 BCR ALB1 DETECTED; Prior Results NG; Source N
== END 2020-08-19 16:59 | disposition home or self-care (01) ==
LOC: ONCMED 08-20 10:41
PROVIDERS: PCP Internal Medicine; Visit Provider Internal Medicine Medical Oncology
DX: C92.10 Chronic myeloid leukemia, BCR/ABL-positive, not having achieved remission (principal)
CPT/HCPCS: 81206

== ENCOUNTER 2021-02-24 14:57 | Outpatient (CLI) | payer MEDICARE, MEDICAID, SELFPAY ==
[2021-02-24 15:34] LABS: Basophils % 0.5 %; Eosinophils # 0.2 10^3/uL (0.0-0.8); Eosinophils % 2.7 %; Hematocrit 44.4 % (37.0-47.0); Lymphocytes % 23.6 %; Mean Corpuscular HGB Conc 33.8 g/dL (30.0-36.0); Mean Corpuscular Hemoglobin 30.2 pg (28.0-34.0); Mean Corpuscular Volume 89.5 fl (81-99); Mean Platelet Volume 11.2 fL (7.4-10.4); Monocytes # 0.5 10^3/uL (0.2-0.9); Monocytes % 6.4 %; Neutrophils # 5.46 10^3/uL (1.8-7.7); Neutrophils % 66.2 %; Nucleated Red Blood Cells % 0 %; Platelet Count 189 10^3/cmm (130-400); Red Blood Count 4.96 10^6/uL (4.1-5.3); White Blood Count 8.3 10^3/uL (4.0-10.0)
[2021-02-24 16:03] LABS: Alanine Aminotransferase 21 U/L (0-33); Albumin Level 4.4 g/dL (3.5-5.2); Alkaline Phosphatase 134 IU/L (35-105); Anion Gap 16.2 (5-19); Aspartate Amino Transferase 16 U/L (0-32); Blood Urea Nitrogen 14 mg/dL (8-23); Calcium 8.6 mg/dL (8.5-10.5); Carbon Dioxide 24 mmol/L (22-29); Chloride 104 mmol/L (98-107); Globulin 1.9 g/dL (1.3-4.6); Glomerular Filtration Rate 220.6 mL/min (90-130); Glucose 86 mg/dL (65-115); Lactate Dehydrogenase 213 U/L (135-214); Osmolality Calculated 290 mOsm/kg (285-295); Potassium 4.2 mmol/L (3.5-5.1); Sodium 140 mmol/L (136-145); Total Bilirubin 0.4 mg/dL (0.15-1.2); Total Protein 6.3 g/dL (6.6-8.7)
--- NOTE | 2021-02-28 12:07 | ONC FU_ITS ---
Dr. Brown Patient Follow-Up Note Patient: Mary Cristobal Unit #: [id number]: 1950 Dicatated By: Dewayne Brown M.D.Date of Visit:Feb 24, 2021 Onc Med Follow-up/Prog Note Chief Complaint: Chronic myeloid leukemia. History of Present Illness: This is a 70 year-old woman with Angelina chromosome positive chronic myeloid leukemia. She has longstanding osteoporosis with associated vertebral compression fractures, complicated by degenerative disease of the spine and lumbar stenosis. She has had chronic back pain and limited mobility. She has additional history of having undergone radiation for cervical cancer 37 years ago. 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 Grey. On 09/19/2019 she was admitted to the hospital with increased back pain in association with an acute vertebral fracture at T12. Lumbar spine CT confirmed a mild burst fracture at T12 with 4.4 mm retropulsion and mild contact on the ventral thecal sac. There was a remote appearing 50% burst fracture of L3 resulting in moderate central and bilateral subarticular recess stenosis. There was moderate to severe central, foraminal, and subarticular recess stenosis at L3-4, and there was moderate to severe central and bilateral subarticular recess stenosis and mild left foraminal stenosis at L4-5. Her initial CBC showed normal hemoglobin at 13.6 g with hematocrit 41.7%. The white blood cell count was significantly elevated at 44,200 and the platelet count also was significantly elevated at 1,144,000. The automated differential included 74. % neutrophils, 4% lymphocytes, 1% monocytes, less than 1% eosinophils, and 1% basophils. Her repeat CBC the following day showed similar findings with hemoglobin 13.8 g, white blood cell count 59,200, and platelet count 1,090,000. The manual differential included 66% segmented neutrophils, 23% band neutrophils, 4% myelocytes, 2% metamyelocytes, 4% lymphocytes, and 1% monocytes. Her comprehensive metabolic profile was unremarkable except for slightly elevated alkaline phosphatase. During the hospitalization she was given antibiotic therapy for urinary tract infection. She otherwise had symptomatic management. She was discharged home on 09/24/2019. I had seen her initially on 10/01/2019. The findings were suspicious for chronic myeloid leukemia or other myeloproliferative disorder. Her bone marrow aspiration/biopsy on 10/18/2019 showed hypercellular marrow, estimated at 70 to 90%. There was myeloid and megakaryocytic hyperplasia. Blasts were not significantly increased, estimated at 1 to 2% of the total cellularity. There was no significant reticulin fibrosis noted. Iron stores were noted to be decreased. The FISH analysis was positive for the BCR/ABL 1 fusion, consistent with chronic myeloid leukemia. Her quantitative PCR was 48.737%. On 11/05/2019 she began treatment with nilotinib, initially at 300 mg twice daily. Her other medical illnesses include hypertension, hyperlipidemia, GERD, peripheral neuropathy, degenerative arthritis/degenerative disease of the spine, and severe osteoporosis with multiple vertebral compression fractures. She has had recurrent urinary tract infections. She has a history of having undergone radiation for cervical cancer in 1983, and she also has a diagnosis of radiation plexitis. She is a non-smoker. INTERIM HISTORY: As of her follow-up visit in January 2020 her quantitative PCR for BCR/abl, but it was down to 2.121% compared to the pretreatment level of 48.737%. During that time, the dosage of her nilotinib had been reduced to 150 mg daily. Her repeat PCR on 05/22/2020 showed a decrease in the BCR/abl to 0.146%, and has of any 08/19/2020 it had further decreased to 0.034%. She continued the nilotinib at 150 mg daily. She is seen for a follow-up visit. She has been feeling okay, though she does complain that she gets tired very easily. She has limited activity due to her leg weakness. ECOG score is 3. She has good appetite. She has no fever or night sweats. She has had no mouth sores, but she does complain that her mouth is dry. She does not complain of cough. She has some shortness of breath with activity. She says she occasionally has a few chest pains. She has no GI/ complaints other than diarrhea, which has been a chronic problem for years. She complains that she has been hurting all the time, especially in her back and legs and in her knees. The pain is adequately managed with medication. She does not complain of headache or dizziness. She does have numbness/tingling in her legs. She has chronic insomnia. Medications: amLODIPine Besylate 1 Tablet (of 10 mg) Oral daily, Aspirin 1 Tablet (of 81 mg) Tablet, enteric coated Oral daily, Lisinopril 1 Tablet (of 40 mg) Oral daily, Omeprazole 1 Capsule (of 20 mg) Capsule Delayed Release Oral daily, OXcarbazepine 1 Tablet (of 600 mg) Oral at bedtime, oxyCODONE HCl 1 Tablet (of 15 mg) Oral q 8 hours PRN, Simvastatin 1 Tablet (of 40 mg) Oral daily, Tasigna 1 Capsule (of 150 mg) Oral daily, Vitamin D2 1 Tablet (of 50 mcg ) Oral q 7 days Allergies: Demerol and Morphine Sulfate. Vital Signs: Performed on Feb 24, 2021 16:21 Height - 68.00 in Temperature - 98.2 F (LOW) Pulse - 88 /min Respiration - 16 /min BP - 148/76 mm(hg) (HIGH) O2 Sat - 96 % Pain - 4 Fatigue - 5 Physical Examination: Constitutional - She looks pretty good generally, Eyes - Sclerae nonicteric. Conjunctivae clear, ENMT - No lesions noted in the oral cavity, Hematologic/Lymphatic - No cervical, clavicular, or axillary adenopathy, Respiratory - Lungs are clear with good air movement bilaterally, Cardiovascular - Heart rhythm is regular. There is no murmur, gallop, or rub noted, Abdomen - Soft. Liver and spleen are not enlarged. There is no abdominal mass or ascites noted and there is no inguinal adenopathy, Extremities - Slight edema, Neurologic - She has chronic weakness in both legs. Lab/Imaging: Test performed on Feb 24, 2021 15:18 LDH (Total) 213 U/L Sodium 140 mmol/L Potassium 4.2 mmol/L Chloride 104 mmol/L CO2 24 mmol/L Anion Gap 16.2 BUN 14 mg/dL Creatinine 0.3 mg/dL Cr Clearance (Est) 177.4300 mL/min eGFR 220.6 mL/min Glucose 86 mg/dL Osmolality - Calculated 290 mOsm/kg Calcium 8.6 mg/dL Protein, Total 6.3 g/dL Albumin 4.4 g/dL Globulin 1.9 g/dL Bilirubin, Total 0.4 mg/dL ALT (SGPT) 21 U/L AST (SGOT) 16 U/L Alkaline Phosphatase 134 IU/L WBC 8.3 10 3/uL RBC 4.96 10 6/uL HGB 15.0 g/dL HCT 44.4 % MCV 89.5 fl MCH 30.2 pg MCHC 33.8 g/dL RDW 13.0 % Platelet Count 189 10 3/cmm MPV 11.2 fL Neutrophils 5.46 10 3/uL Lymphocytes 2.0 10 3/uL Monocytes 0.5 10 3/uL Eosinophils 0.2 10 3/uL Basophils 0.0 10 3/uL Neutrophil % 66.2 % Lymphocyte % 23.6 % Monocyte % 6.4 % Eosinophil % 2.7 % Basophils % 0.5 % NRBC % 0 % Problem List: 1. Patient with chronic myeloid leukemia, BCR/abl1+ by FISH, confirmed by bone marrow aspiration/biopsy on 10/18/2019. 2. She has severe osteoporosis with multiple vertebral compression fractures, including a recent burst type fracture at T12. 3. She has evidence of degenerative disease in the lumbar spine and previous vertebral compression compression fracture at L3 with associated lumbar central canal stenosis. 4. She underwent radiation for cervical cancer in 1983, and she was previously diagnosed with radiation plexitis. 5. Hypertension. 6. Hyperlipidemia. 7. GERD. 8. Peripheral neuropathy. 9. She has a history of recurrent urinary tract infections. Problems Addressed with this Encounter and Plan: 1. Patient with chronic myeloid leukemia, BCR/abl1+ by FISH, confirmed by bone marrow aspiration/biopsy on 10/18/2019. In October 2019 she began treatment with nilotinib 300 mg twice daily. She initially was tolerating it well. As of her follow-up visit in January 2020 the quantitative PCR had decreased to 2.121% compared to the pretreatment level of 48.737%. During that time her nilotinib dosage was reduced to 150 mg daily, but there was continued decline in her PCR to 0.146% on 05/22/2020 and to 0.034% on 08/19/2020. She has had ongoing complaints of fatigue, at least some of which may be treatment related. Her activity remains very limited due to chronic lower extremity weakness. However, she has had a very good response to the nilotinib, and in the absence of any evidence of disease progression, she will continue the nilotinib at 150 mg daily. She will be scheduled for a follow-up visit in 3 months. 2. She has had chronic pain in the back and lower extremities, which has worsened somewhat. It is possible that some component is treatment related. At this point it remains adequately managed with medication. Signed By: Dewayne Brown M.D. <<Signature on File>>
[2021-02-28 19:09] LABS: P210 BCR ALB1 NOT DETECTED; Prior Results NG; Source serum
== END 2021-02-24 14:58 | disposition home or self-care (01) ==
PROVIDERS: PCP Internal Medicine; Visit Provider Internal Medicine Medical Oncology
DX: C92.10 Chronic myeloid leukemia, BCR/ABL-positive, not having achieved remission (principal); M81.0 Age-related osteoporosis without current pathological fracture; S22.081A Stable burst fracture of T11-T12 vertebra, initial encounter for closed fracture; M51.36 Other intervertebral disc degeneration, lumbar region; M48.061 Spinal stenosis, lumbar region without neurogenic claudication; I10 Essential (primary) hypertension; E78.5 Hyperlipidemia, unspecified; K21.9 Gastro-esophageal reflux disease without esophagitis; G62.9 Polyneuropathy, unspecified; Z85.41 Personal history of malignant neoplasm of cervix uteri; Z87.440 Personal history of urinary (tract) infections; Z79.899 Other long term (current) drug therapy
CPT/HCPCS: 36415; 80053; 81206; 83615; 85025; 99214

== ENCOUNTER 2021-05-27 11:09 | Outpatient (CLI) | payer MEDICARE, MEDICAID, SELFPAY ==
[2021-05-27 12:08] LABS: Basophils # 0.1 10^3/uL (0.0-0.1); Basophils % 0.8 %; Eosinophils # 0.2 10^3/uL (0.0-0.8); Eosinophils % 2.8 %; Hematocrit 47.5 % (37.0-47.0); Hemoglobin 15.3 g/dL (11.5-15.3); Lymphocytes # 2.2 10^3/uL (0.8-4.8); Lymphocytes % 30.5 %; Mean Corpuscular HGB Conc 32.2 g/dL (30.0-36.0); Mean Corpuscular Hemoglobin 29.1 pg (28.0-34.0); Mean Corpuscular Volume 90.5 fl (81-99); Mean Platelet Volume 10.9 fL (7.4-10.4); Monocytes # 0.4 10^3/uL (0.2-0.9); Monocytes % 6.1 %; Neutrophils # 4.25 10^3/uL (1.8-7.7); Nucleated Red Blood Cells % 0 %; Platelet Count 186 10^3/cmm (130-400); Red Blood Count 5.25 10^6/uL (4.1-5.3); Red Cell Distribution Width 13.2 % (12.1-15.1); White Blood Count 7.2 10^3/uL (4.0-10.0)
[2021-05-27 12:20] LABS: Alanine Aminotransferase 39 U/L (0-33); Albumin Level 4.4 g/dL (3.5-5.2); Alkaline Phosphatase 139 IU/L (35-105); Anion Gap 14.9 (5-19); Aspartate Amino Transferase 36 U/L (0-32); Blood Urea Nitrogen 14 mg/dL (8-23); Calcium 9.5 mg/dL (8.5-10.5); Carbon Dioxide 26 mmol/L (22-29); Chloride 102 mmol/L (98-107); Globulin 2.8 g/dL (1.3-4.6); Glomerular Filtration Rate 158.3 mL/min (90-130); Glucose 93 mg/dL (65-115); Lactate Dehydrogenase 196 U/L (135-214); Osmolality Calculated 288 mOsm/kg (285-295); Potassium 3.9 mmol/L (3.5-5.1); Sodium 139 mmol/L (136-145); Total Bilirubin 0.4 mg/dL (0.15-1.2); Total Protein 7.2 g/dL (6.6-8.7)
--- NOTE | 2021-05-31 09:12 | ONC FU_ITS ---
Dr. Brown Patient Follow-Up Note Patient: Mary Cristobal Unit #: [id number]: 1950 Dicatated By: Dewayne Brown M.D.Date of Visit:May 27, 2021 Onc Med Follow-up/Prog Note Chief Complaint: Chronic myeloid leukemia. History of Present Illness: This is a 70 year-old woman with Hockley chromosome positive chronic myeloid leukemia. She has longstanding osteoporosis with associated vertebral compression fractures, complicated by degenerative disease of the spine and lumbar stenosis. She has had chronic back pain and limited mobility. She has additional history of having undergone radiation for cervical cancer 37 years ago. 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 Grey. On 09/19/2019 she was admitted to the hospital with increased back pain in association with an acute vertebral fracture at T12. Lumbar spine CT confirmed a mild burst fracture at T12 with 4.4 mm retropulsion and mild contact on the ventral thecal sac. There was a remote appearing 50% burst fracture of L3 resulting in moderate central and bilateral subarticular recess stenosis. There was moderate to severe central, foraminal, and subarticular recess stenosis at L3-4, and there was moderate to severe central and bilateral subarticular recess stenosis and mild left foraminal stenosis at L4-5. Her initial CBC showed normal hemoglobin at 13.6 g with hematocrit 41.7%. The white blood cell count was significantly elevated at 44,200 and the platelet count also was significantly elevated at 1,144,000. The automated differential included 74. % neutrophils, 4% lymphocytes, 1% monocytes, less than 1% eosinophils, and 1% basophils. Her repeat CBC the following day showed similar findings with hemoglobin 13.8 g, white blood cell count 59,200, and platelet count 1,090,000. The manual differential included 66% segmented neutrophils, 23% band neutrophils, 4% myelocytes, 2% metamyelocytes, 4% lymphocytes, and 1% monocytes. Her comprehensive metabolic profile was unremarkable except for slightly elevated alkaline phosphatase. During the hospitalization she was given antibiotic therapy for urinary tract infection. She otherwise had symptomatic management. She was discharged home on 09/24/2019. I had seen her initially on 10/01/2019. The findings were suspicious for chronic myeloid leukemia or other myeloproliferative disorder. Her bone marrow aspiration/biopsy on 10/18/2019 showed hypercellular marrow, estimated at 70 to 90%. There was myeloid and megakaryocytic hyperplasia. Blasts were not significantly increased, estimated at 1 to 2% of the total cellularity. There was no significant reticulin fibrosis noted. Iron stores were noted to be decreased. The FISH analysis was positive for the BCR/ABL 1 fusion, consistent with chronic myeloid leukemia. Her quantitative PCR was 48.737%. On 11/05/2019 she began treatment with nilotinib, initially at 300 mg twice daily. Her other medical illnesses include hypertension, hyperlipidemia, GERD, peripheral neuropathy, degenerative arthritis/degenerative disease of the spine, and severe osteoporosis with multiple vertebral compression fractures. She has had recurrent urinary tract infections. She has a history of having undergone radiation for cervical cancer in 1983, and she also has a diagnosis of radiation plexitis. She is a non-smoker. INTERIM HISTORY: As of her follow-up visit in January 2020 her quantitative PCR for BCR/abl, but it was down to 2.121% compared to the pretreatment level of 48.737%. During that time, the dosage of her nilotinib had been reduced to 150 mg daily. Her repeat PCR on 05/22/2020 showed a decrease in the BCR/abl to 0.146%. On 08/19/2020 it had further decreased to 0.034%, and has of 02/24/2021 it was undetectable. She continued the nilotinib at 150 mg daily. She is seen for a follow-up visit. She has been feeling okay, though she says she has been waking up more tired at least a couple of times a week. Her activity remains very limited due to her leg weakness. ECOG score is 3. She has good appetite. She has no fever or night sweats. She has not had sore mouth or throat. She does have some cough and she has some shortness of breath with activity. She recalls having chest pain 2 or 3 times, but lasting only a few seconds. She occasionally has nausea. Her bowel function is variable, but it has been that way for years. Bladder function has been okay. She has pain in her back and legs, which is chronic. During the past couple weeks she has started having headaches. She does not complain of dizziness. She has numbness in her legs and feet. Medications: amLODIPine Besylate 1 Tablet (of 10 mg) Oral daily, Aspirin 1 Tablet (of 81 mg) Tablet, enteric coated Oral daily, Lisinopril 1 Tablet (of 40 mg) Oral daily, Omeprazole 1 Capsule (of 20 mg) Capsule Delayed Release Oral daily, OXcarbazepine 1 Tablet (of 600 mg) Oral at bedtime, oxyCODONE HCl 1 Tablet (of 15 mg) Oral q 8 hours PRN, Simvastatin 1 Tablet (of 40 mg) Oral daily, Tasigna 1 Capsule (of 150 mg) Oral daily, Vitamin D2 1 Tablet (of 50 mcg ) Oral q 7 days Allergies: Demerol and Morphine Sulfate. Vital Signs: Performed on May 27, 2021 13:28 Height - 68.00 in Temperature - 98.9 F (HIGH) Pulse - 82 /min Respiration - 16 /min BP - 155/78 mm(hg) (HIGH) O2 Sat - 96 % Pain - 4 Fatigue - 5 Physical Examination: Constitutional - She looks pretty good generally, Eyes - Sclerae nonicteric. Conjunctivae clear, ENMT - No lesions noted in the oral cavity, Hematologic/Lymphatic - No cervical, clavicular, or axillary adenopathy, Respiratory - Lungs are clear with good air movement bilaterally, Cardiovascular - Heart rhythm is regular. There is no murmur, gallop, or rub noted, Abdomen - Soft. Liver and spleen are not enlarged. There is no abdominal mass or ascites noted and there is no inguinal adenopathy, Extremities - No edema, Neurologic - She has chronic weakness in both legs. Lab/Imaging: Test performed on May 27, 2021 11:36 LDH (Total) 196 U/L Sodium 139 mmol/L Potassium 3.9 mmol/L Chloride 102 mmol/L CO2 26 mmol/L Anion Gap 14.9 BUN 14 mg/dL Creatinine 0.4 mg/dL Cr Clearance (Est) 133.0700 mL/min eGFR 158.3 mL/min Glucose 93 mg/dL Osmolality - Calculated 288 mOsm/kg Calcium 9.5 mg/dL Protein, Total 7.2 g/dL Albumin 4.4 g/dL Globulin 2.8 g/dL Bilirubin, Total 0.4 mg/dL ALT (SGPT) 39 U/L AST (SGOT) 36 U/L Alkaline Phosphatase 139 IU/L WBC 7.2 10 3/uL RBC 5.25 10 6/uL HGB 15.3 g/dL HCT 47.5 % MCV 90.5 fl MCH 29.1 pg MCHC 32.2 g/dL RDW 13.2 % Platelet Count 186 10 3/cmm MPV 10.9 fL Neutrophils 4.25 10 3/uL Lymphocytes 2.2 10 3/uL Monocytes 0.4 10 3/uL Eosinophils 0.2 10 3/uL Basophils 0.1 10 3/uL Neutrophil % 59.0 % Lymphocyte % 30.5 % Monocyte % 6.1 % Eosinophil % 2.8 % Basophils % 0.8 % NRBC % 0 % Problem List: 1. Patient with chronic myeloid leukemia, BCR/abl1+ by FISH, confirmed by bone marrow aspiration/biopsy on 10/18/2019. 2. She has severe osteoporosis with multiple vertebral compression fractures, including a recent burst type fracture at T12. 3. She has evidence of degenerative disease in the lumbar spine and previous vertebral compression compression fracture at L3 with associated lumbar central canal stenosis. 4. She underwent radiation for cervical cancer in 1983, and she was previously diagnosed with radiation plexitis. 5. Hypertension. 6. Hyperlipidemia. 7. GERD. 8. Peripheral neuropathy. 9. She has a history of recurrent urinary tract infections. Problems Addressed with this Encounter and Plan: 1. Patient with chronic myeloid leukemia, BCR/abl1+ by FISH, confirmed by bone marrow aspiration/biopsy on 10/18/2019. In October 2019 she began treatment with nilotinib 300 mg twice daily. She initially was tolerating it well. As of her follow-up visit in January 2020 the quantitative PCR had decreased to 2.121% compared to the pretreatment level of 48.737%. During that time her nilotinib dosage was reduced to 150 mg daily, but there was continued decline in her PCR. As of 02/24/2021 it was undetectable. She has had ongoing complaints of fatigue, at least some of which I suspect is treatment related. However, she has had a very good response to the nilotinib, And thus far she has been able to tolerate it with acceptable toxicity at a reduced dosage. Her current PCR is pending. In the absence of any evidence of disease progression, she will continue the nilotinib at 150 mg daily. She will be scheduled for a follow-up visit in 3 months. 2. She has had chronic pain in the back and lower extremities, which has worsened somewhat. Some component franklyn be treatment related, but it has been adequately managed with medication. Signed By: Dewayne Brown M.D. <<Signature on File>>
[2021-06-01 18:38] LABS: P210 BCR ALB1 NOT DETECTED; Prior Results NG; Source whole blood
== END 2021-05-27 11:10 | disposition home or self-care (01) ==
PROVIDERS: PCP Internal Medicine; Visit Provider Internal Medicine Medical Oncology
DX: C92.10 Chronic myeloid leukemia, BCR/ABL-positive, not having achieved remission (principal); M81.0 Age-related osteoporosis without current pathological fracture; M51.36 Other intervertebral disc degeneration, lumbar region; M48.061 Spinal stenosis, lumbar region without neurogenic claudication; I10 Essential (primary) hypertension; E78.5 Hyperlipidemia, unspecified; K21.9 Gastro-esophageal reflux disease without esophagitis; G62.9 Polyneuropathy, unspecified; Z87.440 Personal history of urinary (tract) infections; Z79.899 Other long term (current) drug therapy
CPT/HCPCS: 36415; 80053; 81206; 83615; 85025; 99214

== ENCOUNTER 2021-08-05 08:40 | Oncology outpatient (recurring) (ONCR) | payer MEDICARE, MEDICAID, SELFPAY | END 2021-08-25 23:59 | disposition home or self-care (01) | LOC: ONCMED 08:42 | PROVIDERS: PCP Internal Medicine; Visit Provider Internal Medicine Medical Oncology | DX: Z53.9 Procedure and treatment not carried out, unspecified reason (principal) ==

== ENCOUNTER → 2021-08-31 10:38 | Outpatient (BNVA) | payer MEDICARE, MEDICAID, SELFPAY | PROVIDERS: PCP Internal Medicine; Visit Provider Internal Medicine Medical Oncology | DX: C92.10 Chronic myeloid leukemia, BCR/ABL-positive, not having achieved remission (principal) | CPT/HCPCS: 80053; 81206; 85025 ==

== ENCOUNTER → 2021-11-27 10:05 | Outpatient (BNVA) | payer MEDICARE, MEDICAID, SELFPAY | PROVIDERS: PCP Internal Medicine; Visit Provider Internal Medicine Medical Oncology | DX: C92.10 Chronic myeloid leukemia, BCR/ABL-positive, not having achieved remission (principal) | CPT/HCPCS: 80053; 81206; 85025 ==

== ENCOUNTER 2021-12-02 11:01 | Oncology outpatient (recurring) (ONCR) | payer MEDICARE, MEDICAID, SELFPAY | END 2021-12-25 23:59 | disposition home or self-care (01) | PROVIDERS: PCP Internal Medicine; Visit Provider Internal Medicine Medical Oncology | DX: C92.10 Chronic myeloid leukemia, BCR/ABL-positive, not having achieved remission (principal); R53.0 Neoplastic (malignant) related fatigue; Z79.899 Other long term (current) drug therapy | CPT/HCPCS: 99214 ==

== ENCOUNTER → 2022-06-02 10:57 | Outpatient (BNVA) | payer MEDICARE, MEDICAID, SELFPAY | PROVIDERS: PCP Internal Medicine; Visit Provider Internal Medicine Medical Oncology | DX: C92.10 Chronic myeloid leukemia, BCR/ABL-positive, not having achieved remission (principal) | CPT/HCPCS: 80053; 81206; 83615; 85025 ==

== ENCOUNTER 2022-07-15 14:53 | Oncology outpatient (recurring) (ONCR) | payer MEDICARE, MEDICAID, SELFPAY | END 2022-07-25 23:59 | disposition home or self-care (01) | PROVIDERS: PCP Internal Medicine; Visit Provider Internal Medicine Medical Oncology | DX: C92.10 Chronic myeloid leukemia, BCR/ABL-positive, not having achieved remission (principal); R53.83 Other fatigue; R11.0 Nausea; Z79.899 Other long term (current) drug therapy | CPT/HCPCS: 99214 ==

== ENCOUNTER → 2023-01-05 17:06 | Outpatient (BNVA) | payer MEDICARE, MEDICAID, SELFPAY | PROVIDERS: PCP Internal Medicine; Visit Provider Internal Medicine Medical Oncology | DX: C92.10 Chronic myeloid leukemia, BCR/ABL-positive, not having achieved remission (principal) | CPT/HCPCS: 80053; 81206; 85025 ==

== ENCOUNTER → 2023-05-02 14:10 | Outpatient (BNVA) | payer MEDICARE, MEDICAID, SELFPAY | PROVIDERS: PCP Internal Medicine; Visit Provider Internal Medicine Medical Oncology | DX: C92.10 Chronic myeloid leukemia, BCR/ABL-positive, not having achieved remission (principal); Z79.899 Other long term (current) drug therapy | CPT/HCPCS: 80053; 81206; 83550; 85025 ==

== ENCOUNTER 2023-06-13 10:57 | Outpatient (CLI) | payer MEDICARE, MEDICAID, SELFPAY ==
[2023-06-17 13:55] LABS: BCR ABL1 (IS) 0.054 (0.000); P210 BCR ALB1 DETECTED; P210 BCR ALB1 Yes Test Yes; Prior Results NG; Source whole blood
== END 2023-06-13 10:58 | disposition home or self-care (01) ==
PROVIDERS: PCP Internal Medicine; Visit Provider Internal Medicine
DX: C92.10 Chronic myeloid leukemia, BCR/ABL-positive, not having achieved remission (principal)
CPT/HCPCS: 81206

== ENCOUNTER 2023-07-05 14:21 | Oncology outpatient (recurring) (ONCR) | payer MEDICARE, MEDICAID, SELFPAY | END 2023-07-26 23:59 | disposition home or self-care (01) | PROVIDERS: PCP Internal Medicine; Visit Provider Internal Medicine Medical Oncology | DX: C92.10 Chronic myeloid leukemia, BCR/ABL-positive, not having achieved remission (principal); R53.0 Neoplastic (malignant) related fatigue; Z79.899 Other long term (current) drug therapy | CPT/HCPCS: 99214 ==

== ENCOUNTER 2024-01-12 12:55 | Oncology outpatient (recurring) (ONCR) | payer MEDICARE, MEDICAID, SELFPAY ==
[2024-01-12 13:28] LABS: Basophils # 0.1 10^3/uL (0.0-0.1); Basophils % 0.5 %; Eosinophils # 0.2 10^3/uL (0.0-0.8); Eosinophils % 1.3 %; Hematocrit 36.9 % (36-47); Lymphocytes # 1.8 10^3/uL (0.8-4.8); Lymphocytes % 15.7 %; Mean Corpuscular HGB Conc 31.2 g/dL (30-55); Mean Corpuscular Hemoglobin 26.7 pg (27-33); Mean Corpuscular Volume 85.6 fl (85-98); Mean Platelet Volume 9.8 fL (7.4-10.4); Monocytes # 1.2 10^3/uL (0.2-0.9); Neutrophils # 8.24 10^3/uL (1.8-7.7); Neutrophils % 72.1 %; Nucleated Red Blood Cells % 0 %; Platelet Count 315 10^3/cmm (157-399); Red Blood Count 4.31 10^6/uL (3.85-5.65); Red Cell Distribution Width 15.6 % (12.1-15.1); White Blood Count 11.45 10^3/uL (3.29-11.43)
[2024-01-12 13:48] LABS: Alanine Aminotransferase 14 U/L (0-33); Albumin Level 2.9 g/dL (3.5-5.2); Alkaline Phosphatase 194 U/L (35-105); Anion Gap 8.2 (5-19); Aspartate Amino Transferase 13 U/L (0-32); Blood Urea Nitrogen 9 mg/dL (8-23); Calcium 8.1 mg/dL (8.5-10.5); Carbon Dioxide 31 mmol/L (22-29); Chloride 100 mmol/L (98-107); Creatinine Clr Calc Pharmacy 63.4162; Globulin 3.5 g/dL (1.3-4.6); Glucose 127 mg/dL (65-115); Lactate Dehydrogenase 136 U/L (135-214); Osmolality Calculated 280 mOsm/kg (285-295); Potassium 4.2 mmol/L (3.5-5.1); Sodium 135 mmol/L (136-145); Total Bilirubin 0.4 mg/dL (0.15-1.2); Total Protein 6.4 g/dL (6.6-8.7)
[2024-01-17 21:37] LABS: BCR ABL1 (IS) 0.047 (0.000); P210 BCR ALB1 DETECTED; P210 BCR ALB1 Yes Test Yes; Prior Results NG; Source blood
== END 2024-01-26 23:59 | disposition home or self-care (01) ==
PROVIDERS: Nurse Practitioner Family; PCP Internal Medicine; Visit Provider Internal Medicine Hematology & Oncology
DX: C92.10 Chronic myeloid leukemia, BCR/ABL-positive, not having achieved remission (principal); R53.0 Neoplastic (malignant) related fatigue; Z79.899 Other long term (current) drug therapy; K52.1 Toxic gastroenteritis and colitis; T45.1X5A Adverse effect of antineoplastic and immunosuppressive drugs, initial encounter; Z79.620 Long term (current) use of immunosuppressive biologic; R35.0 Frequency of micturition; R32 Unspecified urinary incontinence
CPT/HCPCS: 36415; 80053; 81206; 83615; 85025; 99214

== ENCOUNTER → 2024-06-06 12:57 | Outpatient (BNVA) | payer MEDICARE, MEDICAID, SELFPAY | PROVIDERS: PCP Internal Medicine; Visit Provider Thoracic Surgery (Cardiothoracic Vascular Surgery) | DX: I96 Gangrene, not elsewhere classified (principal); L89.314 Pressure ulcer of right buttock, stage 4; L89.894 Pressure ulcer of other site, stage 4 | CPT/HCPCS: 11042; 97597; 99203; A6213 ==

== ENCOUNTER → 2024-06-25 14:16 | Outpatient (BNVA) | payer MEDICARE, MEDICAID, SELFPAY | PROVIDERS: PCP Internal Medicine; Visit Provider Thoracic Surgery (Cardiothoracic Vascular Surgery) | DX: I96 Gangrene, not elsewhere classified (principal); L89.894 Pressure ulcer of other site, stage 4; L89.892 Pressure ulcer of other site, stage 2 | CPT/HCPCS: 11042; 97597; 97605; A6237; A6250 ==

== ENCOUNTER → 2024-07-02 14:45 | Outpatient (BNVA) | payer MEDICARE, MEDICAID, SELFPAY | PROVIDERS: PCP Internal Medicine; Visit Provider Thoracic Surgery (Cardiothoracic Vascular Surgery) | DX: I96 Gangrene, not elsewhere classified (principal); L89.214 Pressure ulcer of right hip, stage 4; L89.224 Pressure ulcer of left hip, stage 4; L89.892 Pressure ulcer of other site, stage 2 | CPT/HCPCS: 11042; 97597; 97605; A6210; A6237; A6250 ==

== ENCOUNTER → 2024-07-16 14:36 | Outpatient (BNVA) | payer MEDICARE, MEDICAID, SELFPAY | PROVIDERS: PCP Internal Medicine; Visit Provider Thoracic Surgery (Cardiothoracic Vascular Surgery) | DX: I96 Gangrene, not elsewhere classified (principal); L89.214 Pressure ulcer of right hip, stage 4; L89.224 Pressure ulcer of left hip, stage 4; L89.892 Pressure ulcer of other site, stage 2 | CPT/HCPCS: 11042; 97597; A6210; A6219; A6220 ==